=== PATIENT | female | born 1970 | race Caucasian/White ===

== ENCOUNTER 2016-12-02 04:42 | Emergency (ER) | payer MEDICAID, SELFPAY ==
[2016-12-02 05:01] VITALS: BP 121/91
[2016-12-02] MEDS ORDERED: HYDROmorphone 1 MG/ML Syringe IM ONE (05:08)
[2016-12-02] MEDS ORDERED: Ketorolac 60 MG/2 ML SDV IM ONE (05:12)
[2016-12-02] MEDS ORDERED: Take Home: Acetaminophen/oxyCODONE 325-5 MG, 5 Tab Pack PO ONE (05:13)
--- NOTE | 2016-12-02 08:16 | ER ---
Date of Service: 12/02/2016 SUBJECTIVE: Rima presents to the emergency room stating that she is out of her pain medication. The patient states that she is on oxycodone for pain control. She states that she has been out of this medication for approximately 2 days and is requesting refill or pain medication. The patient states that she is feeling somewhat anxious. She is experiencing pain to her lower extremities. She does have a history of chronic pain syndrome secondary to osteoarthritis. PAST MEDICAL HISTORY: 1. Polycystic ovarian syndrome. 2. History of pernicious anemia. 3. Chronic pain syndrome. 4. Sleep disorder. 5. Dyslipidemia. 6. Type 2 diabetes mellitus. ALLERGIES: NKDA. MEDICATIONS: Please see Nurse's notes. REVIEW OF SYSTEMS: General: No fever or chills. HEENT: No sore throat, rhinorrhea, congestion. Respiratory: No shortness of breath. Cardiac: Denies any substernal chest pain. No jaw, arm, neck, or back pain. Gastrointestinal: Nausea, vomiting, or diarrhea. No melena, hematochezia, or hematemesis. : Denies any dysuria. Musculoskeletal: Positive for pain to her lower extremities secondary to peripheral neuropathy. PHYSICAL EXAMINATION: General: This is an is a 45-year-old female patient. She is in no acute distress. Vital Signs: Blood pressure is 121/91, O2 saturations 92%. Respiratory rate is 18, pulse rate is 93, temperature is 37.1. Skin: Warm, pink, and dry. Lungs: Clear to auscultation. Heart: Regular rate and rhythm. Abdomen: Obese and nontender. There is no hepatosplenomegaly or masses noted. Extremities: Without edema. Neurologic: She is alert and answers all questions appropriately. Her speech is fluent. Her gait is within normal limits. ASSESSMENT: Chronic pain syndrome. PLAN: Discussed plan of care with the patient. I did state that I would not be able to give her prescription for chronic pain medication. I did give her a 5 pack of Percocet 5/325 with instructions to take 1 every 4 to 6 hours as needed for pain. She needs to follow up with her primary care provider to get her medication refilled, and that we cannot prescribe chronic pain medication through the ER. All questions were answered. She was also given an injection of Toradol 60 mg IM. MWK: 12/02/2016 05:38:17 MODL: 12/02/2016 06:58:20 /[id number]
== END 2016-12-02 06:01 | disposition home or self-care (01) ==
LOC: SUPCPDRO 04:42 → VM.ED 04:42
DX: G89.4 Chronic pain syndrome (principal); E78.5 Hyperlipidemia, unspecified; E11.9 Type 2 diabetes mellitus without complications
CPT/HCPCS: 96372; 99282; A9270; J1885

== ENCOUNTER 2016-12-20 10:53 | Inpatient (IN) | payer MEDICAID ==
[2016-12-20] MEDS ORDERED: Nystatin Crm 30 GM Tube TOP PRN (14:43)
[2016-12-20] MEDS ORDERED: Acetaminophen 500 MG Tab PO PRN (14:43)
[2016-12-20] MEDS: oxyCODONE 5 MG Tab PO PRN (16:27)
[2016-12-20] MEDS: Nicotine 21 MG/24 Hr Patch TRDERM SCH (17:33)
[2016-12-20] MEDS: MAGNESIUM 500 MG PO SCH (21:04)
[2016-12-20] MEDS: Simvastatin 40 MG Tab***OWN MED PO SCH (21:05)
[2016-12-20] MEDS: OXCARBAZEPINE 600 MG PO SCH (21:05)
[2016-12-20] MEDS: METFORMIN 500 MG PO SCH (21:06)
[2016-12-20] MEDS: TRAZODONE 100 MG PO SCH (21:07)
[2016-12-20] MEDS: PREGABALIN 200 MG PO SCH (21:07)
[2016-12-20] MEDS: PHENTERMINE 15 MG PO SCH (21:09)
[2016-12-20] MEDS: oxyCODONE 5 MG Tab PO SCH (21:13)
--- NOTE | 2016-12-20 21:55 | HP ---
REASON FOR ADMISSION: Left ankle pain and fracture to the distal medial malleoli with incomplete union and impaired mobility due to that and need for help with ADLs. 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 She had some alcohol use at that time. She was hospitalized over a month, and spent 4 months in the jail and has had trouble with painful neuropathy since, including use of Lyrica, Tegretol, and narcotics. She takes usually 20 mg twice daily of oxycodone but had been using additional doses over the last month due to the ankle pain. She at one point was followed by the Pain Clinic for neuropathy but has not been back lately. The patient had weighed over 400 pounds. She has actually gained now 15 pounds in the last 3 months, up to 408. Her highest weight has been 412, that was a year ago. She tends to drink a lot of pop at home. She smokes. She has had a lot of shortness of breath but has been seen in the past by Pulmonary and they felt she had severe restrictive lung disease probably due to her obesity. She has had a pelvic mass, however, she has had it so long and her CA-125 were negative. I doubt it is of any neoplastic nature, but she was never felt to be good enough surgical candidate for that type of surgery. She has otherwise had no chest pain. No new cough. Her legs are swollen. She does take Lasix 40 mg twice daily. They are red but they are not warm. She has not had any fever or chills. 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 She takes rare Ativan. Chronic pain due to painful neuropathy, hypertriglyceridemia, hyperlipidemia, hypomagnesemia, macrocytic anemia, tobacco abuse disorder, smoking 1 to 1-1/2 packs per day. Low HDL, vitamin D deficiency, essential hypertension, insomnia, morbid obesity with BMI of 58.54, bilateral ovarian cysts, pelvic mass for the last 2+ years, prediabetes, perirectal abscess status post surgeries, rectal bleeding with previous colonoscopy that was okay, restrictive lung disease, moderate hypoxia, overnight B12 deficiency. PAST SURGICAL HISTORY: The patient has had the rectal surgery x3 back in 2015, ORIF of the right ankle. 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 She is . She has a boyfriend whom she lives with. FAMILY HISTORY: Her mother is alive, but her father of heart disease. Sister has multiple sclerosis. REVIEW OF SYSTEMS: General: Again, massive weight gain. HEENT: No sore throat. No trouble swallowing. Cardiac: No chest pain. Respiratory: She has been short of breath that is long standing. She has impaired mobility. Abdominal: No abdominal pain, nausea, vomiting, or diarrhea. Musculoskeletal: She has ankle pain. Neurologic: She has painful neuropathy. Psych: She does have a history of depression and situational anxiety. Otherwise, all systems reviewed and found to be negative unless otherwise stated. PHYSICAL EXAMINATION: Vital Signs: Her weight on admission is 185.2 kg, temp 98, pulse 80, blood pressure 108/45, respiratory rate 16, and O2 of 96% on room air. General: She is in no acute distress. Heart: Regular rate and rhythm. S1 and S2 without murmur. Lungs: Sounds are clear to auscultation bilaterally without crackles or wheezes. Abdomen: Positive bowel sounds. Soft and nontender. Extremities: Warm and dry. She has some redness to her toes, some fine scabs noted, but no open sores or ulcers. She has good sensation. She has 2+ dorsal pedis pulses. Mental Status: She is alert and orientated x3. LABORATORY DATA: Lab work done through the clinic on the 8th did show negative D-dimer, proBNP was normal at 22, magnesium was 2.0. CBC was completely normal with hemoglobin of 13.4, platelets of 288, glucose 108, sodium 134, potassium 4.9, creatinine 0.67. ASSESSMENT: 1. Left ankle fracture, distal medial malleoli. Roll Panner felt it could be as old as 8 weeks out. However, the patient fell about 1 month ago. They do not feel she would need any surgery at this point. They recommended a walking boot, which the patient had told me she had at home but could not find. We will have to arrange for her to use one in the hospital and have her up with a walker. 2. Dyspnea on exertion, shortness of breath related to restrictive lung disease. D-dimer is negative. It is unlikely she has a PE. Could consider another echo test again prior to any gastric bypass surgery, but echo looked okay last year with EF of 60%. Pulmonary artery pressure could not be calculated. She has had some nocturnal hypoxia and we will order 2 L of oxygen for her at night. 3. Chronic pain. We have ordered her oxycodone twice a day and an extra pill if needed, which had been limited to 10 per month. 4. Essential hypertension. We will continue her home Lasix. 5. Edema, dependent, probably due to some obesity. We will try to get her into the bariatric bed, so she can get her feet up more. We will apply some Phu wraps as well. 6. Anxiety. I am going to hold her lorazepam. She has only used it prior to trips on the bus. 7. Morbid obesity. We are working on referral to gastric bypass surgery. 8. Smoking. We will have her on a nicotine patch and hopefully that will help. 9. Depression. We will continue her home medications. PLAN: At this point patient is admitted to swing bed cares to encourage weight loss, quitting smoking, and help with her ADLs due to limited mobility with the ankle fracture. She requires assistance with bathing and ambulating. We will get her up and working with PT again. LEO: 12/20/2016 18:26:39 MODL: 12/20/2016 21:48:01 /[id number]
[2016-12-21] MEDS: CYCLOBENZAPRINE 10 MG PO PRN ×2 (06:03→20:07)
[2016-12-21] MEDS: Ibuprofen 200 MG Tab PO PRN (06:05)
[2016-12-21] MEDS: Omeprazole 20 MG Cap.CR***OWN MED PO SCH (06:05)
[2016-12-21] MEDS: FUROSEMIDE 40 MG PO SCH ×2 (08:07→11:21)
[2016-12-21] MEDS: OXCARBAZEPINE 600 MG PO SCH ×2 (08:08→20:09)
[2016-12-21] MEDS: METFORMIN 500 MG PO SCH ×2 (08:09→20:09)
[2016-12-21] MEDS: BUPROPION 300 MG PO SCH (08:11)
[2016-12-21] MEDS: CHOLECALCIFEROL 1000 UNIT PO SCH (08:11)
[2016-12-21] MEDS: ESCITALOPRAM 20 MG PO SCH (08:11)
[2016-12-21] MEDS: FOLIC ACID 1 MG PO SCH (08:11)
[2016-12-21] MEDS: oxyCODONE 5 MG Tab PO SCH ×2 (08:12→20:05)
[2016-12-21] MEDS: Cyanocobalamin (Vitamin B12) 1,000 MCG Tab PO SCH (08:12)
[2016-12-21] MEDS: POTASSIUM CHLORIDE 10 MEQ PO SCH (08:12)
[2016-12-21] MEDS: Nicotine 21 MG/24 Hr Patch TRDERM SCH (08:14)
[2016-12-21] MEDS: Aspirin 325 MG Tab.EC PO SCH (08:14)
[2016-12-21] MEDS: PHENTERMINE 15 MG PO SCH ×2 (08:15→20:10)
[2016-12-21] MEDS: PREGABALIN 200 MG PO SCH ×3 (08:17→20:12)
[2016-12-21] MEDS: THIAMINE 100 MG PO SCH (11:21)
[2016-12-21] MEDS: MAGNESIUM 500 MG PO SCH ×2 (11:21→20:08)
[2016-12-21] MEDS: TRAZODONE 100 MG PO SCH (20:15)
[2016-12-21] MEDS: Simvastatin 40 MG Tab***OWN MED PO SCH (20:16)
[2016-12-21] MEDS: oxyCODONE 5 MG Tab PO PRN (22:49)
[2016-12-21] MEDS: TRAZODONE 100 MG PO PRN (22:54)
[2016-12-22] MEDS: Omeprazole 20 MG Cap.CR***OWN MED PO SCH (06:32)
[2016-12-22] MEDS: FUROSEMIDE 40 MG PO SCH ×2 (08:00→11:22)
[2016-12-22] MEDS: METFORMIN 500 MG PO SCH ×2 (08:00→20:32)
[2016-12-22] MEDS: POTASSIUM CHLORIDE 10 MEQ PO SCH (08:01)
[2016-12-22] MEDS: OXCARBAZEPINE 600 MG PO SCH ×2 (08:01→20:33)
[2016-12-22] MEDS: ESCITALOPRAM 20 MG PO SCH (08:01)
[2016-12-22] MEDS: Cyanocobalamin (Vitamin B12) 1,000 MCG Tab PO SCH (08:01)
[2016-12-22] MEDS: CHOLECALCIFEROL 1000 UNIT PO SCH (08:02)
[2016-12-22] MEDS: FOLIC ACID 1 MG PO SCH (08:02)
[2016-12-22] MEDS: BUPROPION 300 MG PO SCH (08:02)
[2016-12-22] MEDS: oxyCODONE 5 MG Tab PO SCH ×2 (08:02→20:29)
[2016-12-22] MEDS: Nicotine 21 MG/24 Hr Patch TRDERM SCH (08:04)
[2016-12-22] MEDS: PHENTERMINE 15 MG PO SCH ×2 (08:07→20:34)
[2016-12-22] MEDS: PREGABALIN 200 MG PO SCH ×3 (08:07→20:33)
[2016-12-22] MEDS: Aspirin 325 MG Tab.EC PO SCH (08:08)
[2016-12-22] MEDS: MAGNESIUM 500 MG PO SCH ×2 (11:22→20:32)
[2016-12-22] MEDS: THIAMINE 100 MG PO SCH (11:22)
[2016-12-22] MEDS: CYCLOBENZAPRINE 10 MG PO PRN ×2 (11:26→20:30)
[2016-12-22] MEDS: Simvastatin 40 MG Tab***OWN MED PO SCH (20:31)
[2016-12-22] MEDS: TRAZODONE 100 MG PO SCH (20:32)
[2016-12-22] MEDS: oxyCODONE 5 MG Tab PO PRN (23:27)
[2016-12-23] MEDS: Ibuprofen 200 MG Tab PO PRN (03:22)
[2016-12-23] MEDS: Omeprazole 20 MG Cap.CR***OWN MED PO SCH (06:16)
[2016-12-23] MEDS: METFORMIN 500 MG PO SCH ×2 (10:00→20:50)
[2016-12-23] MEDS: FUROSEMIDE 40 MG PO SCH ×2 (10:01→13:46)
[2016-12-23] MEDS: Cyanocobalamin (Vitamin B12) 1,000 MCG Tab PO SCH (10:01)
[2016-12-23] MEDS: OXCARBAZEPINE 600 MG PO SCH ×2 (10:02→20:51)
[2016-12-23] MEDS: ESCITALOPRAM 20 MG PO SCH (10:03)
[2016-12-23] MEDS: FOLIC ACID 1 MG PO SCH (10:04)
[2016-12-23] MEDS: POTASSIUM CHLORIDE 10 MEQ PO SCH (10:04)
[2016-12-23] MEDS: CHOLECALCIFEROL 1000 UNIT PO SCH (10:05)
[2016-12-23] MEDS: Nicotine 21 MG/24 Hr Patch TRDERM SCH (10:05)
[2016-12-23] MEDS: BUPROPION 300 MG PO SCH (10:05)
[2016-12-23] MEDS: Aspirin 325 MG Tab.EC PO SCH (10:06)
[2016-12-23] MEDS: oxyCODONE 5 MG Tab PO SCH (10:07)
[2016-12-23] MEDS: PHENTERMINE 15 MG PO SCH ×2 (10:09→20:48)
[2016-12-23] MEDS: PREGABALIN 200 MG PO SCH ×3 (10:09→20:51)
[2016-12-23] MEDS ORDERED: NYSTATIN TOP PRN (12:55)
[2016-12-23] MEDS: MAGNESIUM 500 MG PO SCH ×2 (13:47→20:52)
[2016-12-23] MEDS: THIAMINE 100 MG PO SCH (13:47)
[2016-12-23] MEDS: TRAZODONE 100 MG PO SCH (20:49)
[2016-12-23] MEDS: Simvastatin 40 MG Tab***OWN MED PO SCH (20:49)
[2016-12-24] MEDS: CYCLOBENZAPRINE PO PRN ×2 (00:14→13:00)
[2016-12-24] MEDS: TRAZODONE 100 MG PO PRN (00:16)
[2016-12-24 06:11] VITALS: BP 136/87
[2016-12-24] MEDS: Omeprazole 20 MG Cap.CR***OWN MED PO SCH (06:51)
[2016-12-24] MEDS: Aspirin 325 MG Tab.EC PO SCH (08:48)
[2016-12-24] MEDS: ESCITALOPRAM 20 MG PO SCH (08:48)
[2016-12-24] MEDS: FOLIC ACID 1 MG PO SCH (08:49)
[2016-12-24] MEDS: Nicotine 21 MG/24 Hr Patch TRDERM SCH (08:50)
[2016-12-24] MEDS: METFORMIN 500 MG PO SCH (08:50)
[2016-12-24] MEDS: POTASSIUM CHLORIDE 10 MEQ PO SCH (08:51)
[2016-12-24] MEDS: FUROSEMIDE 40 MG PO SCH ×2 (08:52→11:59)
[2016-12-24] MEDS: BUPROPION 300 MG PO SCH (08:53)
[2016-12-24] MEDS: OXCARBAZEPINE 600 MG PO SCH (08:54)
[2016-12-24] MEDS: PHENTERMINE 15 MG PO SCH (08:56)
[2016-12-24] MEDS: PREGABALIN 200 MG PO SCH ×2 (08:59→12:03)
[2016-12-24] MEDS: Cyanocobalamin (Vitamin B12) 1,000 MCG Tab PO SCH (08:59)
[2016-12-24] MEDS: CHOLECALCIFEROL 1000 UNIT PO SCH (09:00)
[2016-12-24] MEDS ORDERED: OXYCODONE PO PRN (10:49)
[2016-12-24] MEDS: THIAMINE 100 MG PO SCH (12:00)
[2016-12-24] MEDS: MAGNESIUM 500 MG PO SCH (12:00)
[2016-12-24] MEDS ORDERED: OXYCODONE PO SCH (21:00)
--- NOTE | 2016-12-25 01:49 | DISCH ---
PRIMARY DISCHARGE DIAGNOSIS: 1. Left ankle medial malleoli fracture with malunion. This patient is supposed to be wearing a walking boot, but at times was not having it on. We did get her a new one while she was in the hospital. 2. Severe obesity. 3. Smoking. 4. Dyspnea on exertion. 5. Chronic pain related to neuropathy from Guillain-[place]. 6. Previous history of Guillain-[place]. 7. Dependent edema. 8. Essential hypertension. 9. Anxiety. 10.Depression. REASON FOR ADMISSION: On the date of admission, this 46-year-old female was admitted for cares with activities of daily living due to her impaired mobility. She also was desiring to quit smoking in hopes that she would be ready for a gastric bypass surgery. She had thought that things could be set up within 1 month, however, gastric bypass could not be arranged for at least 3 months and she would be meeting with the surgeon in 1 month. Otherwise, she did have a nicotine patch. She felt this was helpful. She requested one on discharge. She did get up and moved with PT. Her mobility was quite good. It was felt that she could return home and resume her ADLs with the assistance of Home Health coming in twice weekly for bathing. The patient at this point was discharged home under [facility]. Nicotine patch was ordered but Medicaid recommended to go through the [place] [facility] and the nurse will call her about this. Otherwise, she does have her oxycodone pain pills available as previously prescribed that were mailed out to her house and is due for recheck with me in 1 month from now for further refills on that. Discharge plans, instructions, followup appointments with Podiatry, although they did not feel surgery would be necessary. Bariatric surgery and Dr. Mishra have all been arranged. The patient is agreeable to discharge to resume Home Health. MKA: 12/24/2016 17:26:25 MODL: 12/25/2016 01:41:02 /[id number]
[2016-12-25] MEDS ORDERED: CHOLECALCIFEROL 2000 UNIT PO SCH (08:00)
== END 2016-12-24 13:57 | disposition home health service (06) | DRG 951 ==
LOC: VM.MS 13:45
PROVIDERS: ADMIT Internal Medicine; ATTEND Internal Medicine
DX: Z74.09 Other reduced mobility (principal); S82.52XA Displaced fracture of medial malleolus of left tibia, initial encounter for closed fracture; W19.XXXA Unspecified fall, initial encounter; E66.01 Morbid (severe) obesity due to excess calories; F17.200 Nicotine dependence, unspecified, uncomplicated; R06.09 Other forms of dyspnea; G89.29 Other chronic pain; G62.9 Polyneuropathy, unspecified; G65.0 Sequelae of Guillain-Barre syndrome; F10.21 Alcohol dependence, in remission; R60.9 Edema, unspecified; I10 Essential (primary) hypertension; F32.9 Major depressive disorder, single episode, unspecified; F41.9 Anxiety disorder, unspecified; E78.5 Hyperlipidemia, unspecified; E78.1 Pure hyperglyceridemia; D64.9 Anemia, unspecified; E55.9 Vitamin D deficiency, unspecified; E53.8 Deficiency of other specified B group vitamins; G47.00 Insomnia, unspecified; R73.03 Prediabetes; Z79.899 Other long term (current) drug therapy
CPT/HCPCS: 94760; 97161-GP; A9270-GY

== ENCOUNTER 2017-05-21 21:12 | Emergency (ER) | payer MEDICAID ==
[2017-05-21 21:24] VITALS: BP 115/67
--- NOTE | 2017-05-21 21:27 | EDM.PDOC ---
ED HPI GENERAL MEDICAL PROBLEM - General Chief Complaint: Lower Extremity Injury/Pain Stated Complaint: right knee pain Time Seen by Provider: 05/21/17 21:12 Source of Information: Reports: Patient, EMS Notes Reviewed, RN, RN Notes Reviewed History Limitations: Reports: No Limitations - History of Present Illness INITIAL COMMENTS - FREE TEXT/NARRATIVE: Patient is brought to the emergency room at [facility] via EMS complaining of severe right knee pain. The patient states last she was getting up from a seated position when she started to fall. As she was falling she tripped on a blanket and twisted her right knee. The patient has not been seen by her primary for this. The patient denies any head injury. No LOC. Patient denies any numbness tingling or paresthesia to the right lower extremity. The patient states that she has difficulty bearing weight on the right leg due to severe knee pain. The patient states that she has tried icing and using Coban wrapped around the right knee without any relief. The patient states she has also been taking oxycodone without any relief. The patient did receive 100 g of fentanyl from the EMS crew. The patient states the fentanyl did not help her pain at all. Onset Date: 05/15/17 Duration: Getting Worse Location: Reports: Lower Extremity, Right Quality: Reports: Stabbing, Throbbing Severity: Severe Improves with: Reports: None Worsens with: Reports: Movement Context: Reports: Trauma (fall; twisted right knee) Associated Symptoms: Reports: No Other Symptoms Treatments RAISIN WASHER: Reports: See EMS Report Right Knee Pain Score (Numeric/FACES): 9 - Related Data Allergies Allergy/AdvReac Type Severity Reaction Status Date / Time No Known Allergies Allergy Verified 05/21/17 21:20 Home Meds: Home Meds Acetaminophen [Tylenol Extra Strength] 1 - 2 tab PO Q4H PRN 10/20/14 [History] Cholecalciferol (Vitamin D3) [Vitamin D3] 2,000 unit PO DAILY 10/20/14 [History] Cyclobenzaprine [Flexeril] 10 mg PO BID PRN 10/20/14 [History] Escitalopram [Lexapro] 30 mg PO DAILY 10/20/14 [History] Folic Acid 1 mg PO TID 10/20/14 [History] Furosemide [Lasix] 40 mg PO BID@0800,1200 10/20/14 [History] Multivitamin [Multi-Vitamin Daily] 1 each PO DAILY@119910/20/14 [History] OXcarbazepine [Trileptal] 900 mg PO BID@0800,209910/20/14 [History] Omeprazole [Prilosec] 20 mg PO DAILY 10/20/14 [History] Pregabalin [Lyrica] 200 mg PO TID@0800,1200,209910/20/14 [History] Sennosides/Docusate Sodium [Senna-S] 1 each PO QID PRN 10/20/14 [History] Simvastatin [Zocor] 40 mg PO BEDTIME@209910/20/14 [History] Thiamine [Vitamin B-1] 100 mg PO DAILY@119910/20/14 [History] buPROPion [Wellbutrin XL] 300 mg PO DAILY 10/20/14 [History] traZODone 100 mg PO BEDTIME@209910/20/14 [History] LORazepam 0.5 mg PO BID PRN 12/27/14 [History] metFORMIN [Glucophage] 500 mg PO BID@0800,209912/27/14 [History] Potassium Chloride 10 meq PO DAILY 03/16/15 [History] traZODone 50 mg PO BEDTIME PRN 03/16/15 [History] Ibuprofen 800 mg PO TID PRN 10/26/15 [History] Magnesium Oxide [Magnesium] 500 mg PO BID@1200,209910/26/15 [History] oxyCODONE 20 mg PO BID@0800,209910/26/15 [History] Aspirin [Ecotrin] 325 mg PO DAILY 12/20/16 [History] Cyanocobalamin (Vitamin B-12) [B-12] 1,000 mcg PO DAILY 12/20/16 [History] Phentermine HCl 15 mg PO BID 12/20/16 [History] Past Medical History Cardiovascular History: Reports: High Cholesterol Other Cardiovascular History: lower leg edema Respiratory History: Reports: Other (See Below) Other Respiratory History: SOB at times, O2 at noc Gastrointestinal History: Reports: GERD LAST SCOURER History: Reports: Other (See Below) Other OB/BYN History: hx of ovarian cysts and need hysterectomy when able to tolerate reverserse trendeleberg Musculoskeletal History: Reports: Other (See Below) Other Musculoskeletal History: hx of rt ankle fx with pinning 6 years ago and current lt tibia fx Neurological History: Reports: Neuropathy, Peripheral, Seizure, Other (See Below ) Other Neuro History: [place] Psychiatric History: Reports: Anxiety, Depression Endocrine/Metabolic History: Reports: Diabetes, Type II, Obesity/BMI 30+ Other Dermatologic History: perineal abcess, over the last 1-2 years, keeps returning, had a number of surgeries for the same - Past Surgical History Cardiovascular Surgical History: Reports: None Respiratory Surgical History: Reports: None GI Surgical History: Reports: None Musculoskeletal Surgical History: Reports: Other (See Below) Other Musculoskeletal Surgeries/Procedures:: rt ankle pinning Social & Family History - Family History Family Medical History: Noncontributory - Tobacco Use Smoking Status *Q: Current Every Day Smoker Years of Tobacco use: 35 Packs/Tins Daily: 0.5 Second Hand Smoke Exposure: Yes - Caffeine Use Caffeine Use: Reports: Soda - Alcohol Use Days Per Week of Alcohol Use: 0 - Recreational Drug Use Recreational Drug Use: No Drug Use in Last 12 Months: No Review of Systems - Review of Systems Review Of Systems: See Below Constitutional: Denies: Chills, Fever, Weakness Respiratory: Reports: Shortness of Breath, Cough Cardiovascular: Reports: Chest Pain, Palpitations Musculoskeletal: Reports: Joint Pain (right knee pain), Muscle Pain, Muscle Stiffness Skin: Reports: No Symptoms Neurological: Reports: No Symptoms. Denies: Numbness, Paresthesia, Tingling ED EXAM, GENERAL - Physical Exam Exam: See Below Exam Limited By: No Limitations General Appearance: Alert, No Apparent Distress Respiratory/Chest: No Respiratory Distress, Lungs Clear, Decreased Breath Sounds Cardiovascular: Regular Rate, Rhythm Peripheral Pulses: 2+: Radial (L), Radial (R) Extremities: Pedal Edema, Limited Range of Motion, Other (right knee pain on deep palpation; no evidence of infection; no obvious knee swelling; limited ROM due to pain). No: Joint Swelling Neurological: Alert, Oriented Skin Exam: Warm, Dry, Intact, Normal Color, No Rash Course - Vital Signs Last Recorded V/S: Last Vital Signs Temp 37.3 C 05/21/17 21:21 Pulse 87 05/21/17 21:21 Resp 18 05/21/17 21:21 BP 115/67 05/21/17 21:21 Pulse Ox 94 L 05/21/17 21:21 - Orders/Labs/Meds Orders: Active Orders 24 hr Category Date Time Status Knee 1V or 2V Rt [CR] Stat Exams 05/21/17 21:30 Taken - Radiology Interpretation Free Text/Narrative:: Right Knee, plain film: Moderate degenerative changes and suspicion for knee joint effusion; Question of a fractured osteophyte at the patellar quadriceps tendon attachment. Clinical correlation recommended; approximately 3cm lucency over the proximal tibia seen on lateral view only, this could be related to artifact however, a true bone lesion can not be excluded. see scanned report in EMR Departure - Departure Time of Disposition: 23:12 Disposition: Home, Self-Care 01 Condition: Good Clinical Impression: Right knee injury Qualifiers: Encounter type: initial encounter Qualified Code(s): S89.91XA - Unspecified injury of right lower leg, initial encounter Right knee sprain Qualifiers: Encounter type: initial encounter Involved ligament of knee: unspecified ligament Qualified Code(s): S83.91XA - Sprain of unspecified site of right knee , initial encounter - Discharge Information Instructions: Knee Pain, Knee Sprain Referrals: Rosemarie Guevara DO [Primary Care Provider] - Forms: ED Department Discharge Additional Instructions: 1. Stay well hydrated and rest 2. Continue with same pain medications at home 3. Rest, elevate, and use ice several times a day 4. Use your walker for mobility, do not put much weight on the right leg when walking 5. See your Primary as symptoms warrant ED Communication - ED Communication Date/Time Date: 05/21/17 Time Called: 23:12 - Discussed Case With (1) Discussed Case With (1): Outpatient Provider (Dr. Beckman, Orthopedics) - Conversation Summary Summary Comment: Case discussed with Dr. Beckman, Ortho. No fracture or dislocation. Bone on bone arthiritis with right knee sprain. Recommend follow up with PCP as symptoms warrant; use walker as able; may need PT in near future - Problem List Review Problem List Initiated/Reviewed/Updated: Yes - My Orders Last 24 Hours: My Active Orders 05/21/17 21:30 Knee 1V or 2V Rt [CR] Stat - Assessment/Plan Last 24 Hours: My Active Orders 05/21/17 21:30 Knee 1V or 2V Rt [CR] Stat
== END 2017-05-21 23:52 | disposition home or self-care (01) ==
LOC: VM.ED 21:12
DX: S83.91XA Sprain of unspecified site of right knee, initial encounter (principal); K21.9 Gastro-esophageal reflux disease without esophagitis; F32.9 Major depressive disorder, single episode, unspecified; F41.9 Anxiety disorder, unspecified; E11.9 Type 2 diabetes mellitus without complications; E66.9 Obesity, unspecified; F17.210 Nicotine dependence, cigarettes, uncomplicated; Z79.82 Long term (current) use of aspirin; Z79.899 Other long term (current) drug therapy; X50.1XXA Overexertion from prolonged static or awkward postures, initial encounter
CPT/HCPCS: 73560-RT; 99284

== ENCOUNTER 2018-10-27 14:42 | Inpatient (IN) | payer MEDICAID ==
[2018-10-27] MEDS ORDERED: TRAZODONE 100 MG PO PRN (16:21)
[2018-10-27] MEDS ORDERED: Acetaminophen 500 MG Tab PO PRN (16:21)
--- NOTE | 2018-10-27 18:30 | HP ---
HISTORY OF PRESENT ILLNESS: This is a 47-year-old being admitted to self-pay swing bed for further efforts at weight loss and smoking cessation in the hopes of getting a gastric bypass surgery 3 months from now. The patient lives in a [facility], has had quite a bit of difficulty with transportation. She is in need of multiple tests including a sleep study, Pap smears, psychiatric evaluation, which is scheduled for later this week, and Nutrition visits. She otherwise had an ultrasound planned for abnormal vaginal bleeding and has had a history of ovarian cyst, but she has not had that done yet. She is currently having no pain. No trouble breathing. She does cough. She still smokes half pack to 1 pack a day. She has not been drinking any alcohol for several years. She does have a history of alcohol abuse and is not in any formal treatments. She does tend to drink about [address] a day. She has a couple of dogs at home, which is her biggest concern about being in the hospital for 3 months, but her significant other will care for them. Otherwise, she has some scabs and things over her feet areas. She has had them cut off by Podiatry in the past. ALLERGIES: None. MEDICATIONS: Trileptal 600 mg take 2 pills twice a day, Flexeril 10 mg 3 times a day as needed for muscle spasm, Wellbutrin 300 mg daily, MiraLAX 1 capful daily as needed for constipation, MS Contin 30 mg twice daily which she takes for chronic neuropathic pain from Guillain-[place], senna docusate 1 tab 3 times a day, Lyrica 200 mg 3 times a day, Prilosec daily, hydroxyzine 1 tablet 25 mg 4 times a day as needed for anxiety, Lexapro 30 mg daily, folic acid 1 mg daily, B12 1000 mcg daily, potassium 10 mEq daily, trazodone 100 mg at bedtime and 50 mg if needed for sleep, Lasix 40 mg daily, metformin 500 mg daily, Tylenol as needed for pain, Colace 100 mg 4 times a day as needed, Motrin 800 mg 3 times a day as needed for pain, aspirin 325 daily, magnesium 1000 mg 3 times a day, thiamine 100 mg daily, and vitamin D 2000 units daily. 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 She was down to 280 pounds at that point. She has since gained up now to 417 pounds at a BMI of 65. This is her highest point. 2. Morbid obesity. BMI 65. 3. Alcohol dependence, treatment back in 2006. 4. Anxiety and depression. Has been with [facility] in the past with a suicide attempt with pills, but none in the last several years. 5. B12 deficiency. 6. Tremors, not completely worked up for rule out for seizures. 7. History of ovarian cyst. Recommended to have surgery, but not healthy enough to have it at that time, that has been several years ago. No progression or concerns on those. 8. Chronic pain secondary to neuropathy with chronic continuous opioid use. 9. GERD. 10.Hyperlipidemia. 11.Essential hypertension, mostly using Lasix which helps with fluid retention, took beta-blockers in the past. 12.Hypertriglyceridemia. 13.Hypomagnesemia. 14.Hypoxia. She is not always good about using her oxygen at night. 15.Chronic idiopathic polyneuropathy. 16.Insomnia. 17.Macrocytic anemia. 18.Prediabetes. 19.Panic disorder, has infrequently taken Ativan like before traveling. 20.Previous rectal bleeding and perirectal abscess. 21.Restrictive lung disease, probably due to some obesity. 22.Severe depression. 23.Smoking. 24.Vitamin D deficiency. PAST SURGICAL HISTORY: The patient has had incision and debridement of perirectal abscess in 2014, I and D in 2016. Again, ORIF to the right ankle in 2010, more I and D's were done also in the rectal area in 2014. FAMILY HISTORY: Her father at age 73. Mother still living. SOCIAL HISTORY: She lives with her significant other. She is on disability. 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 She moved to [place] in 2008. She is not drinking at the time. She is . She has no children. Of course, she is a smoker. REVIEW OF SYSTEMS: General: Positive for weight gain approximately 20 pounds over the last year or so, but nothing recently. No fever, no chills. HEENT: No sore throat. No congestion. Cardiac: No chest pain. No palpitations. Respiratory: No shortness of breath, but does have some coughing. Musculoskeletal: No new aches or pains other than some knee pain that just started today. She thinks she might have twisted it wrong, but she is able to walk okay. Otherwise, all systems reviewed as stated above and negative. PHYSICAL EXAMINATION: Vital Signs: On admission to the hospital today, her weight is 417 pounds or 189.3 kg, temp 97.7, pulse 91, blood pressure 136/67, respiratory rate 20, O2 of 95% on room air. General: She is in no acute distress. Heart: Regular rate and rhythm. S1, S2 without murmur. Lungs: Lung sounds are clear to auscultation bilaterally without crackles or wheezes. Abdomen: Positive bowel sounds. It is soft, distended, but nontender. It is morbidly obese. Extremities: Warm and dry. She does have no pitting edema. She has significant dryness and scaling with a large corn on her plantar aspect of the right foot. She has cracked and fissured areas on both feet. Mental Status: She is alert and orientated x3. ASSESSMENT: 1. Morbid obesity, BMI of 65. 2. Nicotine dependence with smoking. 3. Remote history of alcohol abuse. 4. 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 5. Prediabetes. 6. Dyslipidemia. 7. Nocturnal hypoxia, on oxygen at night. 8. Anxiety and depression. 9. Insomnia. 10.History of pelvic mass. Need for screening pelvic ultrasound arranged in the clinic and a Pap smear is planned over there. PLAN: At this point, the patient is admitted for swing bed cares with focusing on smoking cessation. Her diet, she has multiple Nutrition visits planned and weight loss of hopefully 50 pounds over the next 3 months in preparation for a gastric bypass surgery. She will be placed on a diabetic diet. I recommend no pop for her, especially not the sugary pop. We will get her seen by Psychiatry. She has a visit later this week. She has lung testing and visits with Pulmonary planned. We will also get her sleep study. Director Of Strategic Sales will be involved. Multiple scheduling things are needed. We will try some AmLactin cream for her feet. We will get her seen by Podiatry and we will arrange some neuro followup for her. She plans on calling them. Overall, a very complex patient with lots of Director Of Strategic Sales help needed. A Nutrition consult was placed and further recommendations include increasing protein in her diet with specific recommendations given by gastric bypass surgery for 3191-0660 calories per day, 50-60 g of protein, and avoid sugary starchy foods. Aerobic exercise ideally 30 minutes 4-5 times a week consistently. We will work with trying to get her on a walk just twice a day as she is quite unsteady at times. If she is not used to being up, she feels like she could get dizzy. She also is thinking about code status. She actually is listed as a code 2, which is new for her. We did discuss with her given her young age and even with her comorbidities, so she would like to think about it. So for now, we will put her on a full code status for DVT prophylaxis. I am going to discontinue her full-dose aspirin. LEO: 10/27/2018 17:26:42 MODL: 10/27/2018 18:20:24 /[id number]
[2018-10-27] MEDS: Nicotine 21 MG/24 Hr Patch TRDERM SCH (18:49)
[2018-10-27] MEDS: MORPHINE 30 MG PO SCH (20:18)
[2018-10-27] MEDS: LYRICA PO SCH (20:18)
[2018-10-27] MEDS: OXCARBAZEPINE 600 MG PO SCH (20:19)
[2018-10-27] MEDS: TRAZODONE 100 MG PO SCH (20:20)
[2018-10-27] MEDS: FOLIC ACID 1 MG PO SCH (20:21)
[2018-10-27] MEDS: CYCLOBENZAPRINE 10 MG PO PRN (20:22)
[2018-10-27] MEDS: Magnesium Oxide 400 MG Tab PO SCH (20:36)
[2018-10-28] MEDS: POTASSIUM CHLORIDE 10 MEQ PO SCH (09:11)
[2018-10-28] MEDS: BUPROPION HCL 300 MG PO SCH (09:11)
[2018-10-28] MEDS: FOLIC ACID 1 MG PO SCH ×3 (09:12→21:00)
[2018-10-28] MEDS: OXCARBAZEPINE 600 MG PO SCH ×2 (09:12→21:18)
[2018-10-28] MEDS: FUROSEMIDE 40 MG PO SCH ×2 (09:13→12:51)
[2018-10-28] MEDS: METFORMIN 500 MG PO SCH (09:13)
[2018-10-28] MEDS: Nicotine 21 MG/24 Hr Patch TRDERM SCH (09:14)
[2018-10-28] MEDS: MORPHINE 30 MG PO SCH ×2 (09:15→21:00)
[2018-10-28] MEDS: LYRICA PO SCH ×3 (09:16→21:19)
[2018-10-28] MEDS: Omeprazole 20 MG Cap.CR PO SCH (09:22)
[2018-10-28] MEDS: Magnesium Oxide 400 MG Tab PO SCH ×3 (09:23→21:00)
[2018-10-28] MEDS: Cholecalciferol (Vitamin D3) 1,000 Unit Tab PO SCH (09:23)
[2018-10-28] MEDS: Aspirin 325 MG Tab.EC PO SCH (09:23)
[2018-10-28] MEDS: Cyanocobalamin (Vitamin B12) 1,000 MCG Tab PO SCH (09:24)
[2018-10-28] MEDS: CYCLOBENZAPRINE 10 MG PO PRN ×2 (12:50→21:20)
[2018-10-28] MEDS: Thiamine 100 MG Tab PO SCH (12:51)
[2018-10-28] MEDS: TRAZODONE 100 MG PO SCH (21:19)
[2018-10-28] MEDS: Docusate Sodium 100 MG Cap PO PRN (21:31)
[2018-10-29] MEDS: FOLIC ACID 1 MG PO SCH ×3 (07:52→20:44)
[2018-10-29] MEDS: Magnesium Oxide 400 MG Tab PO SCH ×3 (07:52→20:41)
[2018-10-29] MEDS: Cholecalciferol (Vitamin D3) 1,000 Unit Tab PO SCH (07:53)
[2018-10-29] MEDS: Omeprazole 20 MG Cap.CR PO SCH (07:53)
[2018-10-29] MEDS: Docusate Sodium 100 MG Cap PO PRN (07:53)
[2018-10-29] MEDS: Cyanocobalamin (Vitamin B12) 1,000 MCG Tab PO SCH (07:53)
[2018-10-29] MEDS: Aspirin 325 MG Tab.EC PO SCH (07:53)
[2018-10-29] MEDS: Nicotine 21 MG/24 Hr Patch TRDERM SCH (07:54)
[2018-10-29] MEDS: OXCARBAZEPINE 600 MG PO SCH ×2 (07:55→20:45)
[2018-10-29] MEDS: FUROSEMIDE 40 MG PO SCH ×2 (07:55→13:11)
[2018-10-29] MEDS: POTASSIUM CHLORIDE 10 MEQ PO SCH (07:56)
[2018-10-29] MEDS: METFORMIN 500 MG PO SCH (07:57)
[2018-10-29] MEDS: BUPROPION HCL 300 MG PO SCH (07:58)
[2018-10-29] MEDS: MORPHINE 30 MG PO SCH ×2 (07:58→20:42)
[2018-10-29] MEDS: LYRICA PO SCH ×3 (08:00→20:44)
[2018-10-29] MEDS: AMMONIUM LACTATE 12% TOP SCH ×2 (09:02→20:49)
[2018-10-29] MEDS ORDERED: Cholecalciferol (Vitamin D3) 1,000 Unit Tab PO SCH (12:00)
[2018-10-29] MEDS: Multivitamins with Iron/Calcium/Folic Acid/Minerals Tab PO SCH (13:12)
[2018-10-29] MEDS: Thiamine 100 MG Tab PO SCH (13:12)
--- NOTE | 2018-10-29 14:52 | US ---
[id number] US/US Pelvic Transvag Transabd Exam: US Pelvic Transvag Transabd Indication:MENORRHAGIA WITH IRREGULAR CYCLE. Comparison: Pelvic CT from June 2017. Discussion: Transvaginal examination was performed for better evaluation of the adnexa. Numerous closely approximated cysts versus a multi locular cystic mass. Difficult to differentiate between normal uterine/advanced structures, urinary bladder, or underlying mass, as the structures are closely approximated to one another. Of note, cystic ovarian masses were seen on a CT from 2016. Endometrium measures 10 mm in thickness and is hyperechoic with scattered cystic change. Otherwise, retained blood products can demonstrate a similar appearance. Impression: Possible multilocular cystic pelvic mass, described above. If symptoms persist, consider gynecologic consultation versus contrast enhanced CT examination of the abdomen/pelvis to help differentiate anatomy. Jean-Paul Chatman MD 10/29/18 0103 Thank you for allowing us to participate in the care of your patient.
[2018-10-29] MEDS: TRAZODONE 100 MG PO SCH (20:45)
[2018-10-29] MEDS: CYCLOBENZAPRINE 10 MG PO PRN (20:46)
[2018-10-30] MEDS: Cholecalciferol (Vitamin D3) 1,000 Unit Tab PO SCH (08:16)
[2018-10-30] MEDS: Nicotine 21 MG/24 Hr Patch TRDERM SCH (08:16)
[2018-10-30] MEDS: Magnesium Oxide 400 MG Tab PO SCH ×3 (08:17→20:08)
[2018-10-30] MEDS: Aspirin 325 MG Tab.EC PO SCH (08:17)
[2018-10-30] MEDS: Multivitamins with Iron/Calcium/Folic Acid/Minerals Tab PO SCH (08:19)
[2018-10-30] MEDS: Omeprazole 20 MG Cap.CR PO SCH (08:19)
[2018-10-30] MEDS: Cyanocobalamin (Vitamin B12) 1,000 MCG Tab PO SCH (08:19)
[2018-10-30] MEDS: MORPHINE 30 MG PO SCH ×2 (08:20→20:00)
[2018-10-30] MEDS: LYRICA PO SCH ×3 (08:20→20:02)
[2018-10-30] MEDS: BUPROPION HCL 300 MG PO SCH (08:24)
[2018-10-30] MEDS: OXCARBAZEPINE 600 MG PO SCH ×2 (08:25→19:58)
[2018-10-30] MEDS: HYDROXYZINE HCL 25 MG PO PRN (08:26)
[2018-10-30] MEDS: METFORMIN 500 MG PO SCH (08:29)
[2018-10-30] MEDS: FUROSEMIDE 40 MG PO SCH ×2 (08:30→12:22)
[2018-10-30] MEDS: POTASSIUM CHLORIDE 10 MEQ PO SCH (08:30)
[2018-10-30] MEDS: FOLIC ACID 1 MG PO SCH ×3 (08:31→19:57)
--- NOTE | 2018-10-30 09:20 | US ---
[id number] US/US Pelvic Transvag Transabd Exam: US Pelvic Transvag Transabd Indication:MENORRHAGIA WITH IRREGULAR CYCLE. Comparison: Pelvic CT from June 2017. Discussion: Transvaginal examination was performed for better evaluation of the adnexa. Numerous closely approximated cysts versus a multi locular cystic mass. Difficult to differentiate between normal uterine/advanced structures, urinary bladder, or underlying mass, as the structures are closely approximated to one another. Of note, cystic ovarian masses were seen on a CT from 2016. Endometrium measures 10 mm in thickness and is hyperechoic with scattered cystic change. Otherwise, retained blood products can demonstrate a similar appearance. Impression: Possible multilocular cystic pelvic mass, described above. If symptoms persist, consider gynecologic consultation versus contrast enhanced CT examination of the abdomen/pelvis to help differentiate anatomy. Jean-Paul Chatman MD 10/30/18 0919 Thank you for allowing us to participate in the care of your patient.
[2018-10-30] MEDS: AMMONIUM LACTATE 12% TOP SCH ×2 (12:24→19:56)
[2018-10-30] MEDS: Thiamine 100 MG Tab PO SCH (12:26)
[2018-10-30] MEDS: CYCLOBENZAPRINE 10 MG PO PRN ×2 (12:29→20:04)
--- NOTE | 2018-10-30 18:07 | PN ---
Progress Note for GEMMA NASH Date: 10/30/2018 Room #: VM.201 HISTORY OF PRESENT ILLNESS: This is a 47-year-old on swing bed. The patient has had heavy periods back in July for a week and a half. Now she is just having spotting. She has had some hot flashes. She did have a pelvic ultrasound that was ordered due to the bleeding and also history of pelvic mass. This was done yesterday and did show her to have a possible multilocular mass cystic up to 9 cm biggest dimensions, but they were unable to fully get it in the garcia. It was also on her ultrasound in 2014, it was 10 cm at that time. Otherwise, she did have 10 mm of endometrial thickness which was hypoechoic with scattered cystic changes, could be related to retained blood products. I discussed this with Gemma today given her plan to undergo gastric bypass surgery and need for further cancer screening. Her only concern right now is that she would like to be able to have some ketch-up. Nutrition has seen her. She is on strict dietary restrictions, low sugar. She also is now using a larger restroom which she finds more helpful. She is having to walk there, but that is quite tiring on her and she was able to get better sleep and rest. She saw Psychiatry yesterday. They adjusted her medications. Plan to start Zoloft and also she is going to start with counseling. OBJECTIVE: Vital Signs: Today, her temperature 97.7, pulse 74, blood pressure 128/47, respiratory rate 18, O2 of 97% on room air. ASSESSMENT: 1. Pelvic mass. It was the right ovary back in 2014 that was enlarged. The patient only had some discomfort on the left side. She will be referred to Gynecology. Also, possibly she is having some dysfunctional uterine bleeding or just perimenopause. Again, this can further be evaluated by Gynecology. 2. Morbid obesity. BMI 65. 3. Nicotine dependence. She is on nicotine patch. Eventually, we will get her off this too, but I think in this 1st couple days to weeks, she will need that. 4. Remote history of alcohol abuse. 5. Anxiety and depression. She is now seeing Psychiatry. 6. Chronic pain due to polyneuropathy with history of Guillain-[place]. 7. Prediabetes. 8. Dyslipidemia. 9. Nocturnal hypoxia. PLAN: At this point, we will continue with ongoing referrals for nutrition, dietitian, gastric bypass, Gynecology, Pulmonary Medicine to get the patient cleared for surgery. She is up, she is moving in the halls more with staff. Overall hopefully, this is a beneficial experience for her as she is quite motivated to improve her overall health. MKA: 10/30/2018 17:07:30 MODL: 10/30/2018 17:21:55 /[id number]
[2018-10-30] MEDS: TRAZODONE 100 MG PO SCH (20:04)
[2018-10-31] MEDS: BUPROPION HCL 300 MG PO SCH (07:29)
[2018-10-31] MEDS: FUROSEMIDE 40 MG PO SCH ×2 (07:30→12:05)
[2018-10-31] MEDS: METFORMIN 500 MG PO SCH (07:30)
[2018-10-31] MEDS: POTASSIUM CHLORIDE 10 MEQ PO SCH (07:30)
[2018-10-31] MEDS: OXCARBAZEPINE 600 MG PO SCH ×2 (07:31→21:56)
[2018-10-31] MEDS: FOLIC ACID 1 MG PO SCH ×3 (07:31→21:56)
[2018-10-31] MEDS: MORPHINE 30 MG PO SCH ×2 (07:33→21:58)
[2018-10-31] MEDS: LYRICA PO SCH ×3 (07:36→21:59)
[2018-10-31] MEDS: Omeprazole 20 MG Cap.CR PO SCH (07:43)
[2018-10-31] MEDS: Cholecalciferol (Vitamin D3) 1,000 Unit Tab PO SCH (07:44)
[2018-10-31] MEDS: Multivitamins with Iron/Calcium/Folic Acid/Minerals Tab PO SCH (07:45)
[2018-10-31] MEDS: Aspirin 325 MG Tab.EC PO SCH (07:45)
[2018-10-31] MEDS: Magnesium Oxide 400 MG Tab PO SCH ×3 (07:45→21:57)
[2018-10-31] MEDS: Cyanocobalamin (Vitamin B12) 1,000 MCG Tab PO SCH (07:45)
[2018-10-31] MEDS: Nicotine 21 MG/24 Hr Patch TRDERM SCH (07:46)
[2018-10-31] MEDS: HYDROXYZINE HCL 25 MG PO PRN ×2 (07:50→12:08)
[2018-10-31] MEDS: AMMONIUM LACTATE 12% TOP SCH ×2 (10:01→21:55)
[2018-10-31] MEDS: Thiamine 100 MG Tab PO SCH (12:05)
[2018-10-31] MEDS: TRAZODONE 100 MG PO SCH (21:56)
[2018-10-31] MEDS: CYCLOBENZAPRINE 10 MG PO PRN (22:00)
[2018-11-01] MEDS: OXCARBAZEPINE 600 MG PO SCH ×2 (07:48→21:44)
[2018-11-01] MEDS: FOLIC ACID 1 MG PO SCH ×3 (07:48→21:47)
[2018-11-01] MEDS: METFORMIN 500 MG PO SCH (07:49)
[2018-11-01] MEDS: POTASSIUM CHLORIDE 10 MEQ PO SCH (07:49)
[2018-11-01] MEDS: CYCLOBENZAPRINE 10 MG PO PRN ×3 (07:49→21:43)
[2018-11-01] MEDS: BUPROPION HCL 300 MG PO SCH (07:49)
[2018-11-01] MEDS: Magnesium Oxide 400 MG Tab PO SCH ×3 (07:50→21:42)
[2018-11-01] MEDS: Cholecalciferol (Vitamin D3) 1,000 Unit Tab PO SCH (07:50)
[2018-11-01] MEDS: Multivitamins with Iron/Calcium/Folic Acid/Minerals Tab PO SCH (07:50)
[2018-11-01] MEDS: FUROSEMIDE 40 MG PO SCH ×2 (07:50→11:34)
[2018-11-01] MEDS: Omeprazole 20 MG Cap.CR PO SCH (07:50)
[2018-11-01] MEDS: Aspirin 325 MG Tab.EC PO SCH (07:51)
[2018-11-01] MEDS: Cyanocobalamin (Vitamin B12) 1,000 MCG Tab PO SCH (07:51)
[2018-11-01] MEDS: Nicotine 21 MG/24 Hr Patch TRDERM SCH (07:51)
[2018-11-01] MEDS: LYRICA PO SCH ×3 (07:52→21:48)
[2018-11-01] MEDS: MORPHINE 30 MG PO SCH ×2 (07:52→21:47)
[2018-11-01] MEDS: AMMONIUM LACTATE 12% TOP SCH ×2 (09:58→21:42)
[2018-11-01] MEDS: Thiamine 100 MG Tab PO SCH (11:37)
[2018-11-01] MEDS: HYDROXYZINE HCL 25 MG PO PRN (11:38)
[2018-11-01] MEDS: Ibuprofen 200 MG Tab PO PRN (18:48)
[2018-11-01] MEDS: TRAZODONE 100 MG PO SCH (21:45)
[2018-11-02] MEDS: BUPROPION HCL 300 MG PO SCH (07:58)
[2018-11-02] MEDS: POTASSIUM CHLORIDE 10 MEQ PO SCH (07:58)
[2018-11-02] MEDS: FOLIC ACID 1 MG PO SCH ×3 (07:58→20:08)
[2018-11-02] MEDS: Nicotine 21 MG/24 Hr Patch TRDERM SCH (07:58)
[2018-11-02] MEDS: OXCARBAZEPINE 600 MG PO SCH ×2 (07:58→20:57)
[2018-11-02] MEDS: FUROSEMIDE 40 MG PO SCH ×2 (07:59→12:01)
[2018-11-02] MEDS: Omeprazole 20 MG Cap.CR PO SCH (07:59)
[2018-11-02] MEDS: Cholecalciferol (Vitamin D3) 1,000 Unit Tab PO SCH (07:59)
[2018-11-02] MEDS: METFORMIN 500 MG PO SCH (07:59)
[2018-11-02] MEDS: Aspirin 325 MG Tab.EC PO SCH (07:59)
[2018-11-02] MEDS: Multivitamins with Iron/Calcium/Folic Acid/Minerals Tab PO SCH (08:00)
[2018-11-02] MEDS: Cyanocobalamin (Vitamin B12) 1,000 MCG Tab PO SCH (08:00)
[2018-11-02] MEDS: Magnesium Oxide 400 MG Tab PO SCH ×3 (08:00→20:07)
[2018-11-02] MEDS: MORPHINE 30 MG PO SCH ×2 (08:00→20:09)
[2018-11-02] MEDS: LYRICA PO SCH ×3 (08:01→20:10)
[2018-11-02] MEDS: AMMONIUM LACTATE 12% TOP SCH ×2 (10:07→20:13)
[2018-11-02] MEDS: Thiamine 100 MG Tab PO SCH (12:02)
[2018-11-02] MEDS: CYCLOBENZAPRINE 10 MG PO PRN ×2 (12:29→20:55)
[2018-11-02] MEDS: HYDROXYZINE HCL 25 MG PO PRN ×2 (14:32→20:55)
[2018-11-02] MEDS: TRAZODONE 100 MG PO SCH (20:08)
[2018-11-03] MEDS: Nicotine 21 MG/24 Hr Patch TRDERM SCH (08:22)
[2018-11-03] MEDS: Cholecalciferol (Vitamin D3) 1,000 Unit Tab PO SCH (08:22)
[2018-11-03] MEDS: Aspirin 325 MG Tab.EC PO SCH (08:22)
[2018-11-03] MEDS: Cyanocobalamin (Vitamin B12) 1,000 MCG Tab PO SCH (08:23)
[2018-11-03] MEDS: Magnesium Oxide 400 MG Tab PO SCH ×3 (08:23→20:03)
[2018-11-03] MEDS: Multivitamins with Iron/Calcium/Folic Acid/Minerals Tab PO SCH (08:23)
[2018-11-03] MEDS: Omeprazole 20 MG Cap.CR PO SCH (08:23)
[2018-11-03] MEDS: BUPROPION HCL 300 MG PO SCH (08:25)
[2018-11-03] MEDS: POTASSIUM CHLORIDE 10 MEQ PO SCH (08:25)
[2018-11-03] MEDS: OXCARBAZEPINE 600 MG PO SCH ×2 (08:27→20:58)
[2018-11-03] MEDS: METFORMIN 500 MG PO SCH (08:27)
[2018-11-03] MEDS: FOLIC ACID 1 MG PO SCH ×3 (08:27→20:04)
[2018-11-03] MEDS: HYDROXYZINE HCL 25 MG PO PRN ×2 (08:28→20:06)
[2018-11-03] MEDS: LYRICA PO SCH ×3 (08:29→20:58)
[2018-11-03] MEDS: MORPHINE 30 MG PO SCH ×2 (08:32→20:04)
[2018-11-03] MEDS: FUROSEMIDE 40 MG PO SCH ×2 (08:41→11:18)
[2018-11-03] MEDS: AMMONIUM LACTATE 12% TOP SCH ×2 (11:11→20:04)
[2018-11-03] MEDS: Thiamine 100 MG Tab PO SCH (11:19)
[2018-11-03] MEDS: TRAZODONE 100 MG PO SCH (20:07)
[2018-11-03] MEDS: CYCLOBENZAPRINE 10 MG PO PRN (20:12)
[2018-11-04] MEDS: Magnesium Oxide 400 MG Tab PO SCH ×3 (09:14→20:05)
[2018-11-04] MEDS: Aspirin 325 MG Tab.EC PO SCH (09:14)
[2018-11-04] MEDS: FUROSEMIDE 40 MG PO SCH ×2 (09:14→14:21)
[2018-11-04] MEDS: Nicotine 21 MG/24 Hr Patch TRDERM SCH (09:14)
[2018-11-04] MEDS: POTASSIUM CHLORIDE 10 MEQ PO SCH (09:14)
[2018-11-04] MEDS: FOLIC ACID 1 MG PO SCH ×3 (09:14→19:55)
[2018-11-04] MEDS: METFORMIN 500 MG PO SCH (09:14)
[2018-11-04] MEDS: Omeprazole 20 MG Cap.CR PO SCH (09:15)
[2018-11-04] MEDS: Multivitamins with Iron/Calcium/Folic Acid/Minerals Tab PO SCH (09:15)
[2018-11-04] MEDS: Cyanocobalamin (Vitamin B12) 1,000 MCG Tab PO SCH (09:15)
[2018-11-04] MEDS: MORPHINE 30 MG PO SCH ×2 (09:15→19:56)
[2018-11-04] MEDS: Cholecalciferol (Vitamin D3) 1,000 Unit Tab PO SCH (09:15)
[2018-11-04] MEDS: BUPROPION HCL 300 MG PO SCH (09:16)
[2018-11-04] MEDS: OXCARBAZEPINE 600 MG PO SCH ×2 (09:17→19:59)
[2018-11-04] MEDS: HYDROXYZINE HCL 25 MG PO PRN ×3 (09:19→20:01)
[2018-11-04] MEDS: CYCLOBENZAPRINE 10 MG PO PRN ×3 (09:20→19:58)
[2018-11-04] MEDS: LYRICA PO SCH ×4 (09:21→21:13)
[2018-11-04] MEDS: AMMONIUM LACTATE 12% TOP SCH ×2 (11:38→19:54)
[2018-11-04] MEDS: SERTRALINE 25 MG PO SCH (11:38)
[2018-11-04] MEDS: Thiamine 100 MG Tab PO SCH (14:21)
[2018-11-04] MEDS: TRAZODONE 100 MG PO SCH (20:00)
[2018-11-05] MEDS: BUPROPION HCL 300 MG PO SCH (08:18)
[2018-11-05] MEDS: POTASSIUM CHLORIDE 10 MEQ PO SCH (08:18)
[2018-11-05] MEDS: METFORMIN 500 MG PO SCH (08:18)
[2018-11-05] MEDS: SERTRALINE 25 MG PO SCH (08:18)
[2018-11-05] MEDS: FOLIC ACID 1 MG PO SCH ×3 (08:19→19:32)
[2018-11-05] MEDS: HYDROXYZINE HCL 25 MG PO PRN ×2 (08:19→19:36)
[2018-11-05] MEDS: CYCLOBENZAPRINE 10 MG PO PRN ×2 (08:19→19:31)
[2018-11-05] MEDS: OXCARBAZEPINE 600 MG PO SCH ×2 (08:20→20:34)
[2018-11-05] MEDS: FUROSEMIDE 40 MG PO SCH ×2 (08:20→11:24)
[2018-11-05] MEDS: Cholecalciferol (Vitamin D3) 1,000 Unit Tab PO SCH (08:21)
[2018-11-05] MEDS: Multivitamins with Iron/Calcium/Folic Acid/Minerals Tab PO SCH (08:21)
[2018-11-05] MEDS: Cyanocobalamin (Vitamin B12) 1,000 MCG Tab PO SCH (08:21)
[2018-11-05] MEDS: LYRICA PO SCH ×4 (08:22→20:35)
[2018-11-05] MEDS: MORPHINE 30 MG PO SCH ×2 (08:22→19:30)
[2018-11-05] MEDS: Aspirin 325 MG Tab.EC PO SCH (08:22)
[2018-11-05] MEDS: Nicotine 21 MG/24 Hr Patch TRDERM SCH (08:24)
[2018-11-05] MEDS: Magnesium Oxide 400 MG Tab PO SCH ×3 (08:33→19:31)
[2018-11-05] MEDS: Omeprazole 20 MG Cap.CR PO SCH (08:35)
[2018-11-05] MEDS: AMMONIUM LACTATE 12% TOP SCH ×2 (11:22→19:30)
[2018-11-05] MEDS: Thiamine 100 MG Tab PO SCH (11:22)
[2018-11-05] MEDS: TRAZODONE 100 MG PO SCH (20:35)
[2018-11-06] MEDS: Omeprazole 20 MG Cap.CR PO SCH (07:46)
[2018-11-06] MEDS: Cholecalciferol (Vitamin D3) 1,000 Unit Tab PO SCH (07:46)
[2018-11-06] MEDS: Multivitamins with Iron/Calcium/Folic Acid/Minerals Tab PO SCH (07:46)
[2018-11-06] MEDS: FUROSEMIDE 40 MG PO SCH ×2 (07:47→11:56)
[2018-11-06] MEDS: Cyanocobalamin (Vitamin B12) 1,000 MCG Tab PO SCH (07:47)
[2018-11-06] MEDS: Aspirin 325 MG Tab.EC PO SCH (07:47)
[2018-11-06] MEDS: POTASSIUM CHLORIDE 10 MEQ PO SCH (07:47)
[2018-11-06] MEDS: Magnesium Oxide 400 MG Tab PO SCH ×3 (07:47→20:49)
[2018-11-06] MEDS: BUPROPION HCL 300 MG PO SCH (07:47)
[2018-11-06] MEDS: METFORMIN 500 MG PO SCH (07:48)
[2018-11-06] MEDS: FOLIC ACID 1 MG PO SCH ×3 (07:48→20:47)
[2018-11-06] MEDS: SERTRALINE 25 MG PO SCH (07:48)
[2018-11-06] MEDS: Nicotine 21 MG/24 Hr Patch TRDERM SCH (07:48)
[2018-11-06] MEDS: MORPHINE 30 MG PO SCH ×2 (07:49→20:51)
[2018-11-06] MEDS: OXCARBAZEPINE 600 MG PO SCH ×2 (07:50→20:47)
[2018-11-06] MEDS: LYRICA PO SCH ×3 (07:50→20:50)
[2018-11-06] MEDS: HYDROXYZINE HCL 25 MG PO PRN ×2 (07:52→20:49)
[2018-11-06] MEDS: CYCLOBENZAPRINE 10 MG PO PRN ×2 (07:52→20:47)
[2018-11-06] MEDS: Thiamine 100 MG Tab PO SCH (11:55)
[2018-11-06] MEDS: AMMONIUM LACTATE 12% TOP SCH ×2 (11:56→20:51)
[2018-11-06] MEDS ORDERED: LORazepam 0.5 MG Tab PO ONE (13:34)
[2018-11-06] MEDS: TRAZODONE 100 MG PO SCH (20:46)
[2018-11-07] MEDS: HYDROXYZINE HCL 25 MG PO PRN ×3 (07:46→20:41)
[2018-11-07] MEDS: Aspirin 325 MG Tab.EC PO SCH (07:46)
[2018-11-07] MEDS: Magnesium Oxide 400 MG Tab PO SCH ×3 (07:46→20:46)
[2018-11-07] MEDS: Cyanocobalamin (Vitamin B12) 1,000 MCG Tab PO SCH (07:47)
[2018-11-07] MEDS: Cholecalciferol (Vitamin D3) 1,000 Unit Tab PO SCH (07:47)
[2018-11-07] MEDS: Omeprazole 20 MG Cap.CR PO SCH (07:47)
[2018-11-07] MEDS: Multivitamins with Iron/Calcium/Folic Acid/Minerals Tab PO SCH (07:47)
[2018-11-07] MEDS: Nicotine 21 MG/24 Hr Patch TRDERM SCH (07:47)
[2018-11-07] MEDS: OXCARBAZEPINE 600 MG PO SCH ×2 (07:48→20:40)
[2018-11-07] MEDS: CYCLOBENZAPRINE 10 MG PO PRN ×2 (07:48→20:39)
[2018-11-07] MEDS: FOLIC ACID 1 MG PO SCH ×3 (07:48→20:41)
[2018-11-07] MEDS: SERTRALINE 25 MG PO SCH (07:49)
[2018-11-07] MEDS: FUROSEMIDE 40 MG PO SCH ×2 (07:49→12:17)
[2018-11-07] MEDS: POTASSIUM CHLORIDE 10 MEQ PO SCH (07:49)
[2018-11-07] MEDS: BUPROPION HCL 300 MG PO SCH (07:49)
[2018-11-07] MEDS: MORPHINE 30 MG PO SCH ×2 (07:49→20:42)
[2018-11-07] MEDS: METFORMIN 500 MG PO SCH (07:49)
[2018-11-07] MEDS: LYRICA PO SCH ×3 (07:50→20:44)
[2018-11-07] MEDS: AMMONIUM LACTATE 12% TOP SCH ×2 (09:59→20:45)
[2018-11-07] MEDS: Thiamine 100 MG Tab PO SCH (12:16)
[2018-11-07] MEDS: Docusate Sodium 100 MG Cap PO PRN (12:40)
[2018-11-07] MEDS: TRAZODONE 100 MG PO SCH (20:40)
[2018-11-08] MEDS: CYCLOBENZAPRINE 10 MG PO PRN ×3 (07:37→20:23)
[2018-11-08] MEDS: Multivitamins with Iron/Calcium/Folic Acid/Minerals Tab PO SCH (07:37)
[2018-11-08] MEDS: Nicotine 21 MG/24 Hr Patch TRDERM SCH (07:37)
[2018-11-08] MEDS: HYDROXYZINE HCL 25 MG PO PRN ×3 (07:37→20:24)
[2018-11-08] MEDS: FOLIC ACID 1 MG PO SCH ×3 (07:38→20:23)
[2018-11-08] MEDS: Cholecalciferol (Vitamin D3) 1,000 Unit Tab PO SCH (07:38)
[2018-11-08] MEDS: Aspirin 325 MG Tab.EC PO SCH (07:38)
[2018-11-08] MEDS: Cyanocobalamin (Vitamin B12) 1,000 MCG Tab PO SCH (07:38)
[2018-11-08] MEDS: Omeprazole 20 MG Cap.CR PO SCH (07:38)
[2018-11-08] MEDS: OXCARBAZEPINE 600 MG PO SCH ×2 (07:38→20:30)
[2018-11-08] MEDS: METFORMIN 500 MG PO SCH (07:39)
[2018-11-08] MEDS: POTASSIUM CHLORIDE 10 MEQ PO SCH (07:39)
[2018-11-08] MEDS: MORPHINE 30 MG PO SCH ×2 (07:39→20:25)
[2018-11-08] MEDS: SERTRALINE 25 MG PO SCH (07:39)
[2018-11-08] MEDS: FUROSEMIDE 40 MG PO SCH ×2 (07:39→11:55)
[2018-11-08] MEDS: BUPROPION HCL 300 MG PO SCH (07:39)
[2018-11-08] MEDS: LYRICA PO SCH ×3 (07:40→20:30)
[2018-11-08] MEDS: Magnesium Oxide 400 MG Tab PO SCH ×3 (07:41→20:22)
[2018-11-08] MEDS: Thiamine 100 MG Tab PO SCH (11:54)
[2018-11-08] MEDS: AMMONIUM LACTATE 12% TOP SCH ×2 (11:54→20:26)
--- NOTE | 2018-11-08 11:58 | PN ---
Progress Note for GEMMA NASH Date: 11/06/2018 Room #: VM.201 SUBJECTIVE: This is a 47-year-old on swing bed for improvement in ADLs, weight loss, and quit smoking prior to gastric bypass surgery. The patient was asked to be off her nicotine patch for 3 months prior to surgery. We have been working with a dietitian. She is allowed to have some catch-up now with meals. She is using some artificial sweeteners, but not exceeding the maximum doses. PHYSICAL EXAMINATION: Vital Signs: Objectively, her temperature is 97.4. Her recent weight was 191.2 kg, pulse 66, blood pressure 118/39, respiratory rate 16, and O2 96% on room air. General: She is in no acute distress. She is sitting comfortably in her chair. She appears to be in good spirits. ASSESSMENT AND PLAN: 1. Pelvic mass. She has a followup with FARM HELPER arranged. This is a long- standing issue back at 2014. 2. Morbid obesity. BMI 65, working on weight loss with nutrition. 3. Nicotine dependence. She is on a nicotine patch. She plans to stop using that tomorrow. 4. Remote history of alcohol abuse. 5. Anxiety and depression following with Psychiatry. Arrangements are being made for counseling. 6. Chronic pain due to polyneuropathy from Guillain-[place]. She is on her home doses of morphine. 7. Prediabetes. 8. Nocturnal hypoxia. Outpatient sleep study has been arranged. 9. Hyperlipidemia. PLAN: At this point, the patient will continue on swing bed cares. Social Service is following. She has multiple medical appointments to attend. She also needs to come over to the clinic for a Pap test, which was arranged for November 16. MKA: 11/08/2018 10:52:42 MODL: 11/08/2018 11:50:21 /[id number]
[2018-11-08] MEDS: TRAZODONE 100 MG PO SCH (20:30)
[2018-11-09] MEDS: Aspirin 325 MG Tab.EC PO SCH (07:58)
[2018-11-09] MEDS: FOLIC ACID 1 MG PO SCH ×3 (07:58→19:54)
[2018-11-09] MEDS: METFORMIN 500 MG PO SCH (07:58)
[2018-11-09] MEDS: BUPROPION HCL 300 MG PO SCH (07:58)
[2018-11-09] MEDS: POTASSIUM CHLORIDE 10 MEQ PO SCH (07:59)
[2018-11-09] MEDS: FUROSEMIDE 40 MG PO SCH ×2 (07:59→13:03)
[2018-11-09] MEDS: Magnesium Oxide 400 MG Tab PO SCH ×3 (07:59→19:55)
[2018-11-09] MEDS: MORPHINE 30 MG PO SCH ×2 (08:00→19:56)
[2018-11-09] MEDS: Omeprazole 20 MG Cap.CR PO SCH (08:04)
[2018-11-09] MEDS: OXCARBAZEPINE 600 MG PO SCH ×2 (08:04→19:59)
[2018-11-09] MEDS: LYRICA PO SCH ×4 (08:05→20:48)
[2018-11-09] MEDS: AMMONIUM LACTATE 12% TOP SCH ×2 (08:05→19:53)
[2018-11-09] MEDS: SERTRALINE 25 MG PO SCH (08:05)
[2018-11-09] MEDS: Multivitamins with Iron/Calcium/Folic Acid/Minerals Tab PO SCH (08:06)
[2018-11-09] MEDS: Cholecalciferol (Vitamin D3) 1,000 Unit Tab PO SCH (08:06)
[2018-11-09] MEDS: Cyanocobalamin (Vitamin B12) 1,000 MCG Tab PO SCH (08:06)
[2018-11-09] MEDS: HYDROXYZINE HCL 25 MG PO PRN ×2 (08:09→19:57)
[2018-11-09] MEDS: Nicotine 21 MG/24 Hr Patch TRDERM SCH (08:20)
[2018-11-09] MEDS: Thiamine 100 MG Tab PO SCH (13:04)
[2018-11-09] MEDS: CYCLOBENZAPRINE 10 MG PO PRN (19:55)
[2018-11-09] MEDS: TRAZODONE 100 MG PO SCH (19:59)
[2018-11-10] MEDS: Nicotine 21 MG/24 Hr Patch TRDERM SCH (08:51)
[2018-11-10] MEDS: POTASSIUM CHLORIDE 10 MEQ PO SCH (08:51)
[2018-11-10] MEDS: SERTRALINE 25 MG PO SCH (08:51)
[2018-11-10] MEDS: Multivitamins with Iron/Calcium/Folic Acid/Minerals Tab PO SCH (08:51)
[2018-11-10] MEDS: Cyanocobalamin (Vitamin B12) 1,000 MCG Tab PO SCH (08:51)
[2018-11-10] MEDS: FOLIC ACID 1 MG PO SCH ×3 (08:51→20:56)
[2018-11-10] MEDS: OXCARBAZEPINE 600 MG PO SCH ×2 (08:51→20:56)
[2018-11-10] MEDS: FUROSEMIDE 40 MG PO SCH ×2 (08:51→12:25)
[2018-11-10] MEDS: Omeprazole 20 MG Cap.CR PO SCH (08:51)
[2018-11-10] MEDS: Magnesium Oxide 400 MG Tab PO SCH ×3 (08:51→20:56)
[2018-11-10] MEDS: Aspirin 325 MG Tab.EC PO SCH (08:52)
[2018-11-10] MEDS: MORPHINE 30 MG PO SCH ×2 (08:52→20:56)
[2018-11-10] MEDS: CYCLOBENZAPRINE 10 MG PO PRN ×2 (08:52→20:56)
[2018-11-10] MEDS: BUPROPION HCL 300 MG PO SCH (08:52)
[2018-11-10] MEDS: LYRICA PO SCH ×3 (08:52→20:57)
[2018-11-10] MEDS: METFORMIN 500 MG PO SCH ×3 (08:52→21:04)
[2018-11-10] MEDS: Cholecalciferol (Vitamin D3) 1,000 Unit Tab PO SCH (08:53)
[2018-11-10] MEDS: AMMONIUM LACTATE 12% TOP SCH ×3 (08:54→20:59)
[2018-11-10] MEDS: HYDROXYZINE HCL 25 MG PO PRN ×2 (08:57→20:57)
[2018-11-10] MEDS: Thiamine 100 MG Tab PO SCH (12:28)
[2018-11-10] MEDS: TRAZODONE 100 MG PO SCH (20:56)
[2018-11-10] MEDS: TOPIRAMATE 25 MG PO SCH (21:04)
[2018-11-11] MEDS: LYRICA PO SCH ×3 (08:53→20:02)
[2018-11-11] MEDS: Cholecalciferol (Vitamin D3) 1,000 Unit Tab PO SCH (08:54)
[2018-11-11] MEDS: Cyanocobalamin (Vitamin B12) 1,000 MCG Tab PO SCH (08:54)
[2018-11-11] MEDS: HYDROXYZINE HCL 25 MG PO PRN ×2 (08:54→20:03)
[2018-11-11] MEDS: Magnesium Oxide 400 MG Tab PO SCH ×3 (08:54→19:59)
[2018-11-11] MEDS: MORPHINE 30 MG PO SCH ×2 (08:55→19:58)
[2018-11-11] MEDS: Multivitamins with Iron/Calcium/Folic Acid/Minerals Tab PO SCH (08:55)
[2018-11-11] MEDS: Aspirin 325 MG Tab.EC PO SCH (08:55)
[2018-11-11] MEDS: Omeprazole 20 MG Cap.CR PO SCH (08:55)
[2018-11-11] MEDS: FOLIC ACID 1 MG PO SCH ×3 (08:56→20:01)
[2018-11-11] MEDS: Nicotine 21 MG/24 Hr Patch TRDERM SCH (08:56)
[2018-11-11] MEDS: OXCARBAZEPINE 600 MG PO SCH ×2 (08:56→20:00)
[2018-11-11] MEDS: FUROSEMIDE 40 MG PO SCH ×2 (08:57→11:52)
[2018-11-11] MEDS: BUPROPION HCL 300 MG PO SCH (08:57)
[2018-11-11] MEDS: POTASSIUM CHLORIDE 10 MEQ PO SCH (08:57)
[2018-11-11] MEDS: CYCLOBENZAPRINE 10 MG PO PRN ×3 (08:57→22:01)
[2018-11-11] MEDS: SERTRALINE 25 MG PO SCH (08:57)
[2018-11-11] MEDS: METFORMIN 500 MG PO SCH ×3 (09:00→18:09)
[2018-11-11] MEDS: Thiamine 100 MG Tab PO SCH (11:52)
[2018-11-11] MEDS: AMMONIUM LACTATE 12% TOP SCH ×2 (11:52→20:00)
[2018-11-11] MEDS: TRAZODONE 100 MG PO SCH (20:01)
[2018-11-11] MEDS: TOPIRAMATE 25 MG PO SCH (21:07)
[2018-11-12] MEDS: FUROSEMIDE 40 MG PO SCH ×2 (10:39→13:40)
[2018-11-12] MEDS: SERTRALINE 25 MG PO SCH (10:40)
[2018-11-12] MEDS: POTASSIUM CHLORIDE 10 MEQ PO SCH (10:40)
[2018-11-12] MEDS: BUPROPION HCL 300 MG PO SCH (10:40)
[2018-11-12] MEDS: FOLIC ACID 1 MG PO SCH ×3 (10:40→21:24)
[2018-11-12] MEDS: OXCARBAZEPINE 600 MG PO SCH ×2 (10:41→21:25)
[2018-11-12] MEDS: METFORMIN 500 MG PO SCH ×2 (10:41→18:03)
[2018-11-12] MEDS: Aspirin 325 MG Tab.EC PO SCH (10:42)
[2018-11-12] MEDS: CYCLOBENZAPRINE 10 MG PO PRN ×2 (10:42→13:40)
[2018-11-12] MEDS: Omeprazole 20 MG Cap.CR PO SCH (10:43)
[2018-11-12] MEDS: Magnesium Oxide 400 MG Tab PO SCH ×3 (10:43→21:23)
[2018-11-12] MEDS: Nicotine 21 MG/24 Hr Patch TRDERM SCH (10:43)
[2018-11-12] MEDS: Cholecalciferol (Vitamin D3) 1,000 Unit Tab PO SCH (10:44)
[2018-11-12] MEDS: Cyanocobalamin (Vitamin B12) 1,000 MCG Tab PO SCH (10:44)
[2018-11-12] MEDS: Multivitamins with Iron/Calcium/Folic Acid/Minerals Tab PO SCH (10:44)
[2018-11-12] MEDS: MORPHINE 30 MG PO SCH ×2 (10:45→21:26)
[2018-11-12] MEDS: LYRICA PO SCH ×3 (10:45→21:27)
[2018-11-12] MEDS: AMMONIUM LACTATE 12% TOP SCH ×2 (10:46→21:23)
[2018-11-12] MEDS: Thiamine 100 MG Tab PO SCH (13:39)
[2018-11-12] MEDS: TRAZODONE 100 MG PO SCH (21:27)
[2018-11-12] MEDS: TOPIRAMATE 25 MG PO SCH (21:29)
[2018-11-13] MEDS: OXCARBAZEPINE 600 MG PO SCH ×2 (07:42→21:22)
[2018-11-13] MEDS: FOLIC ACID 1 MG PO SCH ×3 (07:42→19:15)
[2018-11-13] MEDS: FUROSEMIDE 40 MG PO SCH ×2 (07:42→11:23)
[2018-11-13] MEDS: BUPROPION HCL 300 MG PO SCH (07:43)
[2018-11-13] MEDS: METFORMIN 500 MG PO SCH ×2 (07:43→17:20)
[2018-11-13] MEDS: POTASSIUM CHLORIDE 10 MEQ PO SCH (07:43)
[2018-11-13] MEDS: SERTRALINE 25 MG PO SCH (07:43)
[2018-11-13] MEDS: Magnesium Oxide 400 MG Tab PO SCH ×2 (07:44→11:22)
[2018-11-13] MEDS: Cholecalciferol (Vitamin D3) 1,000 Unit Tab PO SCH (07:44)
[2018-11-13] MEDS: Aspirin 325 MG Tab.EC PO SCH (07:45)
[2018-11-13] MEDS: Cyanocobalamin (Vitamin B12) 1,000 MCG Tab PO SCH (07:45)
[2018-11-13] MEDS: Multivitamins with Iron/Calcium/Folic Acid/Minerals Tab PO SCH (07:45)
[2018-11-13] MEDS: Nicotine 21 MG/24 Hr Patch TRDERM SCH (07:45)
[2018-11-13] MEDS: MORPHINE 30 MG PO SCH ×2 (07:46→19:16)
[2018-11-13] MEDS: LYRICA PO SCH ×3 (07:48→21:21)
[2018-11-13] MEDS: CYCLOBENZAPRINE 10 MG PO PRN ×2 (07:49→19:17)
[2018-11-13] MEDS: Omeprazole 20 MG Cap.CR PO SCH (07:51)
[2018-11-13] MEDS: AMMONIUM LACTATE 12% TOP SCH ×2 (09:13→19:14)
[2018-11-13] MEDS: Thiamine 100 MG Tab PO SCH (11:22)
--- NOTE | 2018-11-13 13:28 | PN ---
Progress Note for GEMMA NASH Date: 11/13/2018 Room #: VM.201 SUBJECTIVE: This is a 47-year-old on swing bed for help with ADLs and to quit smoking and to get multiple appointments and workup prior to gastric bypass surgery. She recently saw the weight last center in [place]. They adjusted some of her medications. They were planning on adding Topamax. There was some trouble getting it from the pharmacy, but it is now scheduled at bedtime. She has also recently been adjusted to sertraline by Psych. She has been having some loose stools with diet changes and increased doses of metformin. Otherwise, she is on magnesium high dose 3 times a day, which may be contributing to diarrhea. She came over to the clinic and had some lab work due to an ovarian mass. Her CA-125 was normal. She had this also normal a few years ago. She is due for a Pap. She is going to be seeing DISTRIBUTION OPERATIONS MANAGER for that. She had a low sodium and we will repeat that at the hospital. It was 129. Otherwise, she is getting quite frustrated. Sometimes, she is not able to clean herself with bowel movements and she is not getting consistent help from the staff here. OBJECTIVE: Vital Signs: On exam, her temperature is 97.6, pulse 73, blood pressure 130/46, respiratory rate 18, O2 is 94% on room air. General: She is in no acute distress. She is resting in her room. Her weight has not been checked yet this week. She is working with the dietitian. ASSESSMENT AND PLAN: 1. Loose stools. We will cut back to once daily on the magnesium and repeat a level on the 10th with her sodium. 2. Hyponatremia. We will repeat a sodium. 3. Pelvic mass. She is going to follow up with FLANGE MACHINE OPERATOR. They will do her Pap. 4. Morbid obesity. 5. Remote history of alcohol abuse. 6. Anxiety and depression. She is following with Psych. 7. Chronic pain due to Guillain-[place]. She is on her home morphine. 8. Prediabetes. 9. Nocturnal hypoxia. 10.Hyperlipidemia. 11. Smoking she is quitting but still using the patch PLAN: At this point, the patient will continue swing bed cares to work with therapies. She will need a test to confirm that she has been off smoking the month before her gastric bypass surgery. Communications Equipment Installer is also involved in helping with her arrangements. MKA: 11/13/2018 12:58:44 MODL: 11/13/2018 13:19:59 /[id number] DILAN
[2018-11-13] MEDS: HYDROXYZINE HCL 25 MG PO PRN (17:20)
[2018-11-13] MEDS: TRAZODONE 100 MG PO SCH (21:20)
[2018-11-14] MEDS: Nicotine 21 MG/24 Hr Patch TRDERM SCH (08:07)
[2018-11-14] MEDS: Cyanocobalamin (Vitamin B12) 1,000 MCG Tab PO SCH (08:09)
[2018-11-14] MEDS: Aspirin 325 MG Tab.EC PO SCH (08:09)
[2018-11-14] MEDS: Magnesium Oxide 400 MG Tab PO SCH (08:09)
[2018-11-14] MEDS: METFORMIN 500 MG PO SCH ×2 (08:09→17:50)
[2018-11-14] MEDS: Cholecalciferol (Vitamin D3) 1,000 Unit Tab PO SCH (08:09)
[2018-11-14] MEDS: Omeprazole 20 MG Cap.CR PO SCH (08:09)
[2018-11-14] MEDS: Multivitamins with Iron/Calcium/Folic Acid/Minerals Tab PO SCH (08:09)
[2018-11-14] MEDS: BUPROPION HCL 300 MG PO SCH (08:10)
[2018-11-14] MEDS: SERTRALINE 25 MG PO SCH (08:10)
[2018-11-14] MEDS: OXCARBAZEPINE 600 MG PO SCH ×2 (08:10→20:52)
[2018-11-14] MEDS: FUROSEMIDE 40 MG PO SCH ×2 (08:10→11:38)
[2018-11-14] MEDS: POTASSIUM CHLORIDE 10 MEQ PO SCH (08:11)
[2018-11-14] MEDS: CYCLOBENZAPRINE 10 MG PO PRN ×2 (08:11→20:53)
[2018-11-14] MEDS: FOLIC ACID 1 MG PO SCH ×3 (08:11→20:54)
[2018-11-14] MEDS: MORPHINE 30 MG PO SCH ×2 (08:12→20:50)
[2018-11-14] MEDS: HYDROXYZINE HCL 25 MG PO PRN (08:12)
[2018-11-14] MEDS: LYRICA PO SCH ×3 (08:13→20:53)
[2018-11-14] MEDS: AMMONIUM LACTATE 12% TOP SCH ×2 (10:38→20:49)
[2018-11-14] MEDS: Thiamine 100 MG Tab PO SCH (11:38)
[2018-11-14] MEDS: TRAZODONE 100 MG PO SCH (20:49)
[2018-11-15] MEDS: POTASSIUM CHLORIDE 10 MEQ PO SCH (07:18)
[2018-11-15] MEDS: SERTRALINE 25 MG PO SCH (07:18)
[2018-11-15] MEDS: BUPROPION HCL 300 MG PO SCH (07:18)
[2018-11-15] MEDS: FOLIC ACID 1 MG PO SCH ×3 (07:19→19:51)
[2018-11-15] MEDS: OXCARBAZEPINE 600 MG PO SCH ×2 (07:19→20:57)
[2018-11-15] MEDS: FUROSEMIDE 40 MG PO SCH ×2 (07:19→11:35)
[2018-11-15] MEDS: METFORMIN 500 MG PO SCH ×2 (07:19→17:02)
[2018-11-15] MEDS: CYCLOBENZAPRINE 10 MG PO PRN ×2 (07:20→20:58)
[2018-11-15] MEDS: Cyanocobalamin (Vitamin B12) 1,000 MCG Tab PO SCH (07:20)
[2018-11-15] MEDS: Cholecalciferol (Vitamin D3) 1,000 Unit Tab PO SCH (07:20)
[2018-11-15] MEDS: Omeprazole 20 MG Cap.CR PO SCH (07:20)
[2018-11-15] MEDS: Multivitamins with Iron/Calcium/Folic Acid/Minerals Tab PO SCH (07:20)
[2018-11-15] MEDS: Aspirin 325 MG Tab.EC PO SCH (07:21)
[2018-11-15] MEDS: LYRICA PO SCH ×3 (07:21→20:56)
[2018-11-15] MEDS: MORPHINE 30 MG PO SCH ×2 (07:21→19:54)
[2018-11-15] MEDS: Magnesium Oxide 400 MG Tab PO SCH (07:21)
[2018-11-15] MEDS: Nicotine 21 MG/24 Hr Patch TRDERM SCH (07:22)
[2018-11-15] MEDS: AMMONIUM LACTATE 12% TOP SCH ×2 (10:02→19:53)
[2018-11-15] MEDS: Thiamine 100 MG Tab PO SCH (11:35)
[2018-11-15] MEDS: TRAZODONE 100 MG PO SCH (20:57)
[2018-11-16] MEDS: OXCARBAZEPINE 600 MG PO SCH (08:29)
[2018-11-16] MEDS: FUROSEMIDE 40 MG PO SCH ×2 (08:30→11:26)
[2018-11-16] MEDS: METFORMIN 500 MG PO SCH ×2 (08:30→17:01)
[2018-11-16] MEDS: FOLIC ACID 1 MG PO SCH ×2 (08:30→11:26)
[2018-11-16] MEDS: BUPROPION HCL 300 MG PO SCH (08:31)
[2018-11-16] MEDS: POTASSIUM CHLORIDE 10 MEQ PO SCH (08:31)
[2018-11-16] MEDS: SERTRALINE 25 MG PO SCH (08:31)
[2018-11-16] MEDS: Magnesium Oxide 400 MG Tab PO SCH (08:32)
[2018-11-16] MEDS: Aspirin 325 MG Tab.EC PO SCH (08:32)
[2018-11-16] MEDS: Nicotine 21 MG/24 Hr Patch TRDERM SCH (08:32)
[2018-11-16] MEDS: Cyanocobalamin (Vitamin B12) 1,000 MCG Tab PO SCH (08:33)
[2018-11-16] MEDS: Cholecalciferol (Vitamin D3) 1,000 Unit Tab PO SCH (08:33)
[2018-11-16] MEDS: Multivitamins with Iron/Calcium/Folic Acid/Minerals Tab PO SCH (08:33)
[2018-11-16] MEDS: Omeprazole 20 MG Cap.CR PO SCH (08:33)
[2018-11-16] MEDS: LYRICA PO SCH ×3 (08:35→20:18)
[2018-11-16] MEDS: MORPHINE 30 MG PO SCH ×2 (08:35→20:18)
[2018-11-16] MEDS: AMMONIUM LACTATE 12% TOP SCH ×3 (08:36→20:18)
[2018-11-16] MEDS: HYDROXYZINE HCL 25 MG PO PRN ×2 (08:37→20:17)
[2018-11-16] MEDS: Thiamine 100 MG Tab PO SCH (11:26)
[2018-11-16] MEDS: Docusate Sodium 100 MG Cap PO PRN (16:47)
[2018-11-16] MEDS: CYCLOBENZAPRINE 10 MG PO PRN (20:17)
[2018-11-16] MEDS: TRAZODONE 100 MG PO SCH (20:17)
[2018-11-17] MEDS: OXCARBAZEPINE 600 MG PO SCH ×3 (01:03→20:30)
[2018-11-17] MEDS: FOLIC ACID 1 MG PO SCH ×4 (01:04→20:29)
[2018-11-17] MEDS: METFORMIN 500 MG PO SCH ×2 (08:04→18:03)
[2018-11-17] MEDS: Aspirin 325 MG Tab.EC PO SCH (08:04)
[2018-11-17] MEDS: Cholecalciferol (Vitamin D3) 1,000 Unit Tab PO SCH (08:04)
[2018-11-17] MEDS: FUROSEMIDE 40 MG PO SCH ×2 (08:04→13:00)
[2018-11-17] MEDS: SERTRALINE 25 MG PO SCH (08:05)
[2018-11-17] MEDS: BUPROPION HCL 300 MG PO SCH (08:05)
[2018-11-17] MEDS: POTASSIUM CHLORIDE 10 MEQ PO SCH (08:05)
[2018-11-17] MEDS: Nicotine 21 MG/24 Hr Patch TRDERM SCH (08:06)
[2018-11-17] MEDS: MORPHINE 30 MG PO SCH ×2 (08:07→20:29)
[2018-11-17] MEDS: LYRICA PO SCH ×3 (08:08→20:32)
[2018-11-17] MEDS: Cyanocobalamin (Vitamin B12) 1,000 MCG Tab PO SCH (08:13)
[2018-11-17] MEDS: Omeprazole 20 MG Cap.CR PO SCH (08:13)
[2018-11-17] MEDS: Multivitamins with Iron/Calcium/Folic Acid/Minerals Tab PO SCH (08:13)
[2018-11-17] MEDS: Magnesium Oxide 400 MG Tab PO SCH (08:13)
[2018-11-17] MEDS: AMMONIUM LACTATE 12% TOP SCH ×2 (10:50→20:29)
[2018-11-17] MEDS: Thiamine 100 MG Tab PO SCH (13:01)
[2018-11-17] MEDS: CYCLOBENZAPRINE 10 MG PO PRN ×2 (13:02→20:32)
[2018-11-17] MEDS: TRAZODONE 100 MG PO SCH (20:31)
[2018-11-17] MEDS: HYDROXYZINE HCL 25 MG PO PRN (20:32)
[2018-11-18 07:04] LABS: CHLORIDE,CL 92 mmol/L (98-107)
[2018-11-18 07:29] LABS: SODIUM,NA 128 mmol/L (136-145)
[2018-11-18] MEDS: POTASSIUM CHLORIDE 10 MEQ PO SCH (08:29)
[2018-11-18] MEDS: OXCARBAZEPINE 600 MG PO SCH ×2 (08:29→20:11)
[2018-11-18] MEDS: METFORMIN 500 MG PO SCH ×2 (08:30→18:02)
[2018-11-18] MEDS: BUPROPION HCL 300 MG PO SCH (08:30)
[2018-11-18] MEDS: Magnesium Oxide 400 MG Tab PO SCH (08:30)
[2018-11-18] MEDS: FUROSEMIDE 40 MG PO SCH ×2 (08:30→11:55)
[2018-11-18] MEDS: FOLIC ACID 1 MG PO SCH ×3 (08:30→20:11)
[2018-11-18] MEDS: Cholecalciferol (Vitamin D3) 1,000 Unit Tab PO SCH (08:31)
[2018-11-18] MEDS: Cyanocobalamin (Vitamin B12) 1,000 MCG Tab PO SCH (08:31)
[2018-11-18] MEDS: Multivitamins with Iron/Calcium/Folic Acid/Minerals Tab PO SCH (08:31)
[2018-11-18] MEDS: Aspirin 325 MG Tab.EC PO SCH (08:31)
[2018-11-18] MEDS: MORPHINE 30 MG PO SCH ×2 (08:32→20:10)
[2018-11-18] MEDS: Nicotine 21 MG/24 Hr Patch TRDERM SCH (08:34)
[2018-11-18] MEDS: HYDROXYZINE HCL 25 MG PO PRN ×2 (08:34→20:11)
[2018-11-18] MEDS: LYRICA PO SCH ×3 (08:35→20:10)
[2018-11-18] MEDS: Omeprazole 20 MG Cap.CR PO SCH (08:39)
[2018-11-18] MEDS: Thiamine 100 MG Tab PO SCH (11:59)
[2018-11-18] MEDS: Docusate Sodium 100 MG Cap PO PRN (11:59)
[2018-11-18] MEDS: AMMONIUM LACTATE 12% TOP SCH ×2 (18:01→20:12)
[2018-11-18] MEDS: CYCLOBENZAPRINE 10 MG PO PRN (20:11)
[2018-11-18] MEDS: TRAZODONE 100 MG PO SCH (20:11)
[2018-11-19] MEDS: CYCLOBENZAPRINE 10 MG PO PRN ×3 (07:40→20:15)
[2018-11-19] MEDS: BUPROPION HCL 300 MG PO SCH (07:41)
[2018-11-19] MEDS: FUROSEMIDE 40 MG PO SCH ×2 (07:41→12:30)
[2018-11-19] MEDS: POTASSIUM CHLORIDE 10 MEQ PO SCH (07:41)
[2018-11-19] MEDS: OXCARBAZEPINE 600 MG PO SCH ×2 (07:41→20:14)
[2018-11-19] MEDS: FOLIC ACID 1 MG PO SCH ×3 (07:41→19:26)
[2018-11-19] MEDS: METFORMIN 500 MG PO SCH ×2 (07:42→18:12)
[2018-11-19] MEDS: MORPHINE 30 MG PO SCH ×2 (07:42→19:27)
[2018-11-19] MEDS: LYRICA PO SCH ×3 (07:42→20:16)
[2018-11-19] MEDS: HYDROXYZINE HCL 25 MG PO PRN ×2 (07:43→12:33)
[2018-11-19] MEDS: Cholecalciferol (Vitamin D3) 1,000 Unit Tab PO SCH (07:51)
[2018-11-19] MEDS: Cyanocobalamin (Vitamin B12) 1,000 MCG Tab PO SCH (07:52)
[2018-11-19] MEDS: Aspirin 325 MG Tab.EC PO SCH (07:52)
[2018-11-19] MEDS: Multivitamins with Iron/Calcium/Folic Acid/Minerals Tab PO SCH (07:52)
[2018-11-19] MEDS: Omeprazole 20 MG Cap.CR PO SCH (07:52)
[2018-11-19] MEDS: Magnesium Oxide 400 MG Tab PO SCH (07:52)
[2018-11-19] MEDS: Nicotine 21 MG/24 Hr Patch TRDERM SCH (08:23)
[2018-11-19] MEDS: AMMONIUM LACTATE 12% TOP SCH ×2 (12:29→19:26)
[2018-11-19] MEDS: Thiamine 100 MG Tab PO SCH (12:30)
[2018-11-19] MEDS: TRAZODONE 100 MG PO SCH (20:15)
--- NOTE | 2018-11-19 21:46 | PCM.PN ---
- General Info Date of Service: 11/19/18 Admission Dx/Problem (Free Text): 47 yo seen on swing bed rounds said her stomach was upset so she wanted to get in bed after breakfast. Has now been constipated. Magnesium decreased last week due to diarrhea. She otherwise has not lost any significant weight as we couldn't get Topamax through her insurance but she may be able to self pay. Is now walking 1.5 labs 2 x a day but had refused to walk more per the nurse. Exercise is being encouraged and patient is agreeable to this. Functional Status: Reports: Pain Controlled, Ambulating. Denies: Tolerating Diet - Review of Systems General: Reports: No Symptoms Pulmonary: Reports: No Symptoms Cardiovascular: Reports: No Symptoms Gastrointestinal: Reports: Abdominal Pain Genitourinary: Reports: No Symptoms - Patient Data Vitals - Most Recent: Last Vital Signs Temp 97.6 F 11/19/18 05:54 Pulse 70 11/19/18 05:54 Resp 20 11/19/18 05:54 BP 127/42 L 11/19/18 05:54 Pulse Ox 94 L 11/19/18 05:54 Weight - Most Recent: 190.872 kg I&O - Last 24 Hours: Intake & Output 11/19/18 11/19/18 11/19/18 06:59 14:59 22:59 Intake Total 840 Balance 840 Med Orders - Current: Current Medications Acetaminophen (Tylenol Extra Strength) 500 mg PO QID PRN PRN Reason: Pain Aspirin (Ecotrin) 325 mg PO DAILY [facility] Last Admin: 11/19/18 07:52 Dose: 325 mg Cholecalciferol (Vitamin D3) 2,000 units PO DAILY [facility] Last Admin: 11/19/18 07:51 Dose: 2,000 units Cyanocobalamin (Vitamin B12) 1,000 mcg PO DAILY [facility] Last Admin: 11/19/18 07:52 Dose: 1,000 mcg Cyclobenzaprine HCl (Flexeril) 10 mg PO TID PRN PRN Reason: Muscle Spasm Last Admin: 11/19/18 20:15 Dose: 10 mg Docusate Sodium (Colace) 100 mg PO QID PRN PRN Reason: Constipation Last Admin: 11/18/18 11:59 Dose: 100 mg Folic Acid (Folic Acid) 1 mg PO TID [facility] Last Admin: 11/19/18 19:26 Dose: 1 mg Furosemide (Lasix) 40 mg PO BID@0800,1200 [facility] Last Admin: 11/19/18 12:30 Dose: 40 mg Hydroxyzine HCl (Atarax) 25 mg PO QID PRN PRN Reason: Anxiety Last Admin: 11/19/18 12:33 Dose: 25 mg Ibuprofen (Motrin) 800 mg PO TID PRN PRN Reason: Pain (moderate 4-6) Last Admin: 11/01/18 18:48 Dose: 800 mg Magnesium Oxide (Magnesium Oxide) 800 mg PO DAILY [facility] Last Admin: 11/19/18 07:52 Dose: 800 mg [facility]) [facility] Stop: 08/19/21 17:59 Last Admin: 11/19/18 18:12 Dose: 500 mg Morphine Sulfate (Ms Contin) 30 mg PO BID [facility] Last Admin: 11/19/18 19:27 Dose: 30 mg Multivitamins/Minerals (Thera M Plus) 1 tab PO DAILY [facility] Last Admin: 11/19/18 07:52 Dose: 1 tab Nicotine (Habitrol) 21 mg TRDERM DAILY [facility] Last Admin: 11/19/18 08:23 Dose: Not Given Own Med (Bupropion Hcl [Wellbutrin Xl] 300 Mg) 300 mg PO DAILY [facility] Last Admin: 11/19/18 07:41 Dose: 300 mg Own Med ( Oxcarbazepine [ Trileptal] 600 Mg) 0 mg PO BID@0800,2100 [facility] Last Admin: 11/19/18 20:14 Dose: 1,200 mg Own Med Lyrica ( (Pregabalin 200 Mg)) 200 mg PO TID@0800,1200,2100 [facility] Last Admin: 11/19/18 20:16 Dose: 200 mg Own Med (Trazodone (100 Mg)) 0 mg PO BEDTIME PRN PRN Reason: Insomnia Own Med (Trazodone (100 Mg)) 100 mg PO BEDTIME@2100 [facility] Last Admin: 11/19/18 20:15 Dose: 100 mg Ammonium Lactate (Lotion 12% (Otc)) 1 each TOP BID@10,20 [facility] Last Admin: 11/19/18 19:26 Dose: 1 each Lorazepam 0.5mg (Own (Supply)) 1 each PO BID PRN PRN Reason: Anxiety Last Admin: 11/19/18 20:17 Dose: 1 each Sertraline. 50mg ( (Own Supply)) 0 mg PO DAILY [facility] Last Admin: 11/19/18 07:41 Dose: 50 mg Omeprazole (Omeprazole) 20 mg PO DAILY [facility] Last Admin: 11/19/18 07:52 Dose: 20 mg Potassium Chloride (Klor-Con 10) 10 meq PO DAILY [facility] Last Admin: 11/19/18 07:41 Dose: 10 meq Senna/Docusate Sodium (Senna Plus) 1 tab PO BID [facility] Last Admin: 11/19/18 19:29 Dose: 1 tab Thiamine HCl (Vitamin B-1) 100 mg PO DAILY@1200 [facility] Last Admin: 11/19/18 12:30 Dose: 100 mg Discontinued Medications Cholecalciferol (Vitamin D3) 1,000 units PO DAILY [facility] Last Admin: 10/29/18 13:12 Dose: 1,000 units Lorazepam (Ativan) 0.5 mg PO ONETIME ONE Stop: 11/06/18 13:35 Last Admin: 11/06/18 14:00 Dose: 0.5 mg Magnesium Oxide (Magnesium Oxide) 800 mg PO TID [facility] Last Admin: 11/13/18 11:22 Dose: 800 mg Metformin HCl (Glucophage) 500 mg PO DAILY [facility] Last Admin: 11/10/18 08:52 Dose: 500 mg Metformin HCl (Glucophage) 500 mg PO BID [facility]; Taper Stop: 05/14/24 19:59 Last Admin: 11/11/18 09:00 Dose: 500 mg (Escitalopram [ (Lexapro] 15 Mg)) 0 mg PO DAILY [facility] Stop: 11/03/18 08:01 Last Admin: 11/03/18 08:25 Dose: 15 mg Sertraline. 25mg ( (Own Supply)) 0 mg PO DAILY [facility] Stop: 11/17/18 08:01 Last Admin: 11/17/18 08:05 Dose: 25 mg Topiramate. 25mg ( (Own Supply)) 25 mg PO BEDTIME [facility]; Taper Stop: 08/19/21 19:59 Last Admin: 11/12/18 21:29 Dose: Not Given Senna/Docusate Sodium (Senna Plus) 1 tab PO QID PRN PRN Reason: Constipation Last Admin: 10/29/18 07:52 Dose: 1 tab - Exam General: Alert, Oriented HEENT: Pupils Equal GI/Abdominal Exam: Normal Bowel Sounds, Soft, Non-Tender Extremities: Normal Inspection, No Pedal Edema. No: Pedal Edema Skin: Warm, Dry Psy/Mental Status: Alert, Normal Affect - Problem List Review Problem List Initiated/Reviewed/Updated: Yes - My Orders Last 24 Hours: My Active Orders 11/19/18 09:15 Communication Order [RC] STAT - Assessment Assessment:: 1. morbid obesity check with the pharmacy on Topamax or consider Phentermine again 2. Smoking she has now quit 3. Hyponatremia recheck sodium in 2 weeks 4. Hypomagnesemia increase mag that should help constipation 5. Essential hypertension. Continue home meds 6. Depression continue with psych - Plan Plan:: Continue swing bed cares and continue with weight loss efforts. Multiple visits with [place] specialists are also planned including italian teacher and neuro
[2018-11-20] MEDS: Omeprazole 20 MG Cap.CR PO SCH (07:52)
[2018-11-20] MEDS: Cholecalciferol (Vitamin D3) 1,000 Unit Tab PO SCH (07:52)
[2018-11-20] MEDS: Cyanocobalamin (Vitamin B12) 1,000 MCG Tab PO SCH (07:52)
[2018-11-20] MEDS: Magnesium Oxide 400 MG Tab PO SCH ×3 (07:53→21:12)
[2018-11-20] MEDS: FOLIC ACID 1 MG PO SCH ×3 (07:53→21:05)
[2018-11-20] MEDS: OXCARBAZEPINE 600 MG PO SCH ×2 (07:53→21:07)
[2018-11-20] MEDS: Aspirin 325 MG Tab.EC PO SCH (07:53)
[2018-11-20] MEDS: Multivitamins with Iron/Calcium/Folic Acid/Minerals Tab PO SCH (07:53)
[2018-11-20] MEDS: METFORMIN 500 MG PO SCH ×2 (07:54→18:40)
[2018-11-20] MEDS: BUPROPION HCL 300 MG PO SCH (07:54)
[2018-11-20] MEDS: POTASSIUM CHLORIDE 10 MEQ PO SCH (07:54)
[2018-11-20] MEDS: CYCLOBENZAPRINE 10 MG PO PRN ×2 (07:54→21:06)
[2018-11-20] MEDS: Nicotine 21 MG/24 Hr Patch TRDERM SCH (07:55)
[2018-11-20] MEDS: MORPHINE 30 MG PO SCH ×2 (07:55→21:03)
[2018-11-20] MEDS: FUROSEMIDE 40 MG PO SCH ×2 (07:55→12:01)
[2018-11-20] MEDS: HYDROXYZINE HCL 25 MG PO PRN ×2 (07:56→21:09)
[2018-11-20] MEDS: LYRICA PO SCH ×3 (07:56→21:13)
[2018-11-20] MEDS: Docusate Sodium 100 MG Cap PO PRN ×2 (09:02→18:40)
[2018-11-20] MEDS: AMMONIUM LACTATE 12% TOP SCH ×2 (09:03→21:11)
[2018-11-20] MEDS: Thiamine 100 MG Tab PO SCH (12:02)
[2018-11-20] MEDS: TRAZODONE 100 MG PO SCH (21:06)
[2018-11-20] MEDS: TOPIRAMATE 25 MG PO SCH (21:08)
[2018-11-21] MEDS ORDERED: Bisacodyl 5 MG Tab PO SCH (08:00)
[2018-11-21] MEDS: Cholecalciferol (Vitamin D3) 1,000 Unit Tab PO SCH (08:04)
[2018-11-21] MEDS: Docusate Sodium 100 MG Cap PO PRN (08:04)
[2018-11-21] MEDS: Omeprazole 20 MG Cap.CR PO SCH (08:04)
[2018-11-21] MEDS: Magnesium Oxide 400 MG Tab PO SCH ×3 (08:04→20:45)
[2018-11-21] MEDS: Bisacodyl 5 MG Tab PO PRN (08:04)
[2018-11-21] MEDS: HYDROXYZINE HCL 25 MG PO PRN ×2 (08:04→20:51)
[2018-11-21] MEDS: Multivitamins with Iron/Calcium/Folic Acid/Minerals Tab PO SCH (08:04)
[2018-11-21] MEDS: Cyanocobalamin (Vitamin B12) 1,000 MCG Tab PO SCH (08:05)
[2018-11-21] MEDS: Aspirin 325 MG Tab.EC PO SCH (08:05)
[2018-11-21] MEDS: BUPROPION HCL 300 MG PO SCH (08:05)
[2018-11-21] MEDS: FUROSEMIDE 40 MG PO SCH ×2 (08:05→12:00)
[2018-11-21] MEDS: METFORMIN 500 MG PO SCH ×2 (08:05→17:07)
[2018-11-21] MEDS: CYCLOBENZAPRINE 10 MG PO PRN ×2 (08:05→20:44)
[2018-11-21] MEDS: OXCARBAZEPINE 600 MG PO SCH ×2 (08:05→20:43)
[2018-11-21] MEDS: POTASSIUM CHLORIDE 10 MEQ PO SCH (08:05)
[2018-11-21] MEDS: LYRICA PO SCH ×3 (08:06→20:47)
[2018-11-21] MEDS: MORPHINE 30 MG PO SCH ×2 (08:06→20:48)
[2018-11-21] MEDS: Nicotine 21 MG/24 Hr Patch TRDERM SCH (08:07)
[2018-11-21] MEDS: FOLIC ACID 1 MG PO SCH ×3 (08:08→20:45)
[2018-11-21] MEDS: Thiamine 100 MG Tab PO SCH (12:00)
[2018-11-21] MEDS: AMMONIUM LACTATE 12% TOP SCH ×2 (12:01→20:42)
[2018-11-21] MEDS ORDERED: Magnesium Hydroxide 400 MG/5 ML Susp 30 ML Cup PO PRN (16:37)
[2018-11-21] MEDS: TRAZODONE 100 MG PO SCH (20:43)
[2018-11-21] MEDS: TOPIRAMATE 25 MG PO SCH (20:50)
[2018-11-22] MEDS: HYDROXYZINE HCL 25 MG PO PRN ×2 (09:00→18:14)
[2018-11-22] MEDS: OXCARBAZEPINE 600 MG PO SCH ×2 (09:00→20:41)
[2018-11-22] MEDS: BUPROPION HCL 300 MG PO SCH (09:00)
[2018-11-22] MEDS: CYCLOBENZAPRINE 10 MG PO PRN ×2 (09:01→18:15)
[2018-11-22] MEDS: MORPHINE 30 MG PO SCH ×2 (09:01→20:45)
[2018-11-22] MEDS: FUROSEMIDE 40 MG PO SCH ×2 (09:01→12:06)
[2018-11-22] MEDS: LYRICA PO SCH ×3 (09:01→20:48)
[2018-11-22] MEDS: METFORMIN 500 MG PO SCH ×2 (09:01→18:12)
[2018-11-22] MEDS: FOLIC ACID 1 MG PO SCH ×3 (09:01→20:41)
[2018-11-22] MEDS: POTASSIUM CHLORIDE 10 MEQ PO SCH (09:01)
[2018-11-22] MEDS: Cholecalciferol (Vitamin D3) 1,000 Unit Tab PO SCH (09:02)
[2018-11-22] MEDS: Docusate Sodium 100 MG Cap PO PRN ×3 (09:02→18:14)
[2018-11-22] MEDS: Magnesium Oxide 400 MG Tab PO SCH ×3 (09:02→20:49)
[2018-11-22] MEDS: Multivitamins with Iron/Calcium/Folic Acid/Minerals Tab PO SCH (09:02)
[2018-11-22] MEDS: Cyanocobalamin (Vitamin B12) 1,000 MCG Tab PO SCH (09:02)
[2018-11-22] MEDS: Omeprazole 20 MG Cap.CR PO SCH (09:02)
[2018-11-22] MEDS: Bisacodyl 5 MG Tab PO PRN ×2 (09:03→18:14)
[2018-11-22] MEDS: Nicotine 21 MG/24 Hr Patch TRDERM SCH (09:03)
[2018-11-22] MEDS: AMMONIUM LACTATE 12% TOP SCH ×2 (09:03→20:49)
[2018-11-22] MEDS: Aspirin 325 MG Tab.EC PO SCH (09:03)
[2018-11-22] MEDS: Thiamine 100 MG Tab PO SCH (12:06)
[2018-11-22] MEDS: TRAZODONE 100 MG PO SCH (20:39)
[2018-11-22] MEDS: TOPIRAMATE 25 MG PO SCH (20:45)
[2018-11-23] MEDS: HYDROXYZINE HCL 25 MG PO PRN ×2 (00:57→08:32)
[2018-11-23] MEDS: CYCLOBENZAPRINE 10 MG PO PRN ×3 (00:58→21:51)
[2018-11-23] MEDS: Magnesium Oxide 400 MG Tab PO SCH ×3 (08:26→21:48)
[2018-11-23] MEDS: Multivitamins with Iron/Calcium/Folic Acid/Minerals Tab PO SCH (08:27)
[2018-11-23] MEDS: Cholecalciferol (Vitamin D3) 1,000 Unit Tab PO SCH (08:27)
[2018-11-23] MEDS: Cyanocobalamin (Vitamin B12) 1,000 MCG Tab PO SCH (08:27)
[2018-11-23] MEDS: Omeprazole 20 MG Cap.CR PO SCH (08:27)
[2018-11-23] MEDS: Aspirin 325 MG Tab.EC PO SCH (08:27)
[2018-11-23] MEDS: LYRICA PO SCH ×3 (08:30→21:51)
[2018-11-23] MEDS: MORPHINE 30 MG PO SCH ×2 (08:30→21:51)
[2018-11-23] MEDS: OXCARBAZEPINE 600 MG PO SCH ×2 (08:32→21:50)
[2018-11-23] MEDS: FUROSEMIDE 40 MG PO SCH ×2 (08:33→11:00)
[2018-11-23] MEDS: BUPROPION HCL 300 MG PO SCH (08:33)
[2018-11-23] MEDS: FOLIC ACID 1 MG PO SCH ×3 (08:33→21:50)
[2018-11-23] MEDS: POTASSIUM CHLORIDE 10 MEQ PO SCH (08:34)
[2018-11-23] MEDS: METFORMIN 500 MG PO SCH ×2 (08:34→16:59)
[2018-11-23] MEDS: AMMONIUM LACTATE 12% TOP SCH ×2 (10:53→21:56)
[2018-11-23] MEDS: Thiamine 100 MG Tab PO SCH (11:00)
[2018-11-23] MEDS: Ibuprofen 200 MG Tab PO PRN (17:01)
[2018-11-23] MEDS: TRAZODONE 100 MG PO SCH (21:49)
[2018-11-23] MEDS: TOPIRAMATE 25 MG PO SCH (21:55)
[2018-11-24] MEDS: POTASSIUM CHLORIDE 10 MEQ PO SCH (07:23)
[2018-11-24] MEDS: BUPROPION HCL 300 MG PO SCH (07:23)
[2018-11-24] MEDS: HYDROXYZINE HCL 25 MG PO PRN (07:23)
[2018-11-24] MEDS: OXCARBAZEPINE 600 MG PO SCH ×2 (07:24→20:01)
[2018-11-24] MEDS: FOLIC ACID 1 MG PO SCH ×3 (07:24→19:47)
[2018-11-24] MEDS: FUROSEMIDE 40 MG PO SCH ×2 (07:24→11:01)
[2018-11-24] MEDS: CYCLOBENZAPRINE 10 MG PO PRN ×2 (07:24→20:01)
[2018-11-24] MEDS: Cyanocobalamin (Vitamin B12) 1,000 MCG Tab PO SCH (07:25)
[2018-11-24] MEDS: Multivitamins with Iron/Calcium/Folic Acid/Minerals Tab PO SCH (07:25)
[2018-11-24] MEDS: Omeprazole 20 MG Cap.CR PO SCH (07:25)
[2018-11-24] MEDS: Magnesium Oxide 400 MG Tab PO SCH ×3 (07:25→19:50)
[2018-11-24] MEDS: Cholecalciferol (Vitamin D3) 1,000 Unit Tab PO SCH (07:25)
[2018-11-24] MEDS: Aspirin 325 MG Tab.EC PO SCH (07:25)
[2018-11-24] MEDS: METFORMIN 500 MG PO SCH ×2 (07:25→17:11)
[2018-11-24] MEDS: MORPHINE 30 MG PO SCH ×2 (07:26→19:49)
[2018-11-24] MEDS: LYRICA PO SCH ×3 (07:27→20:00)
[2018-11-24] MEDS: AMMONIUM LACTATE 12% TOP SCH ×2 (09:02→19:47)
[2018-11-24] MEDS: Ibuprofen 200 MG Tab PO PRN (09:06)
[2018-11-24] MEDS: Thiamine 100 MG Tab PO SCH (11:02)
[2018-11-24] MEDS: TOPIRAMATE 25 MG PO SCH (19:54)
[2018-11-24] MEDS: TRAZODONE 100 MG PO SCH (20:01)
[2018-11-25] MEDS: HYDROXYZINE HCL 25 MG PO PRN ×2 (09:16→17:47)
[2018-11-25] MEDS: MORPHINE 30 MG PO SCH ×2 (09:16→20:55)
[2018-11-25] MEDS: LYRICA PO SCH ×3 (09:16→21:18)
[2018-11-25] MEDS: POTASSIUM CHLORIDE 10 MEQ PO SCH (09:16)
[2018-11-25] MEDS: OXCARBAZEPINE 600 MG PO SCH ×2 (09:17→21:19)
[2018-11-25] MEDS: FUROSEMIDE 40 MG PO SCH ×2 (09:17→11:25)
[2018-11-25] MEDS: FOLIC ACID 1 MG PO SCH ×3 (09:17→20:55)
[2018-11-25] MEDS: CYCLOBENZAPRINE 10 MG PO PRN ×2 (09:17→17:48)
[2018-11-25] MEDS: BUPROPION HCL 300 MG PO SCH (09:17)
[2018-11-25] MEDS: Cholecalciferol (Vitamin D3) 1,000 Unit Tab PO SCH (09:17)
[2018-11-25] MEDS: METFORMIN 500 MG PO SCH ×3 (09:17→17:47)
[2018-11-25] MEDS: Cyanocobalamin (Vitamin B12) 1,000 MCG Tab PO SCH (09:18)
[2018-11-25] MEDS: Magnesium Oxide 400 MG Tab PO SCH ×3 (09:18→20:55)
[2018-11-25] MEDS: Aspirin 325 MG Tab.EC PO SCH (09:18)
[2018-11-25] MEDS: Docusate Sodium 100 MG Cap PO PRN (09:18)
[2018-11-25] MEDS: Multivitamins with Iron/Calcium/Folic Acid/Minerals Tab PO SCH (09:18)
[2018-11-25] MEDS: Omeprazole 20 MG Cap.CR PO SCH (09:18)
[2018-11-25] MEDS: AMMONIUM LACTATE 12% TOP SCH ×2 (09:19→20:55)
[2018-11-25] MEDS: Thiamine 100 MG Tab PO SCH (11:25)
[2018-11-25] MEDS ORDERED: Calcium Carbonate 750 MG Tab.Chew PO PRN (11:29)
[2018-11-25] MEDS: Ibuprofen 200 MG Tab PO PRN (14:29)
[2018-11-25] MEDS: TOPIRAMATE 25 MG PO SCH (20:55)
[2018-11-25] MEDS: TRAZODONE 100 MG PO SCH (21:17)
[2018-11-26] MEDS: OXCARBAZEPINE 600 MG PO SCH ×2 (08:53→21:04)
[2018-11-26] MEDS: POTASSIUM CHLORIDE 10 MEQ PO SCH (08:53)
[2018-11-26] MEDS: FUROSEMIDE 40 MG PO SCH ×2 (08:53→12:45)
[2018-11-26] MEDS: BUPROPION HCL 300 MG PO SCH (08:53)
[2018-11-26] MEDS: METFORMIN 500 MG PO SCH ×3 (08:53→18:09)
[2018-11-26] MEDS: MORPHINE 30 MG PO SCH ×2 (08:54→20:59)
[2018-11-26] MEDS: Omeprazole 20 MG Cap.CR PO SCH (08:54)
[2018-11-26] MEDS: LYRICA PO SCH ×3 (08:54→21:05)
[2018-11-26] MEDS: CYCLOBENZAPRINE 10 MG PO PRN ×2 (08:54→21:06)
[2018-11-26] MEDS: HYDROXYZINE HCL 25 MG PO PRN (08:54)
[2018-11-26] MEDS: Cyanocobalamin (Vitamin B12) 1,000 MCG Tab PO SCH (08:54)
[2018-11-26] MEDS: FOLIC ACID 1 MG PO SCH ×3 (08:54→20:30)
[2018-11-26] MEDS: Cholecalciferol (Vitamin D3) 1,000 Unit Tab PO SCH (08:54)
[2018-11-26] MEDS: Aspirin 325 MG Tab.EC PO SCH (08:55)
[2018-11-26] MEDS: Magnesium Oxide 400 MG Tab PO SCH ×3 (08:55→20:30)
[2018-11-26] MEDS: Multivitamins with Iron/Calcium/Folic Acid/Minerals Tab PO SCH (08:55)
[2018-11-26] MEDS: AMMONIUM LACTATE 12% TOP SCH ×2 (08:59→20:30)
[2018-11-26] MEDS: Thiamine 100 MG Tab PO SCH (12:44)
[2018-11-26] MEDS: Ibuprofen 200 MG Tab PO PRN (12:47)
[2018-11-26] MEDS: TOPIRAMATE 25 MG PO SCH (20:30)
[2018-11-26] MEDS: TRAZODONE 100 MG PO SCH (21:05)
[2018-11-27 06:49] VITALS: BP 143/83
[2018-11-27] MEDS: MORPHINE 30 MG PO SCH (08:37)
[2018-11-27] MEDS: CYCLOBENZAPRINE 10 MG PO PRN ×2 (08:38→14:28)
[2018-11-27] MEDS: OXCARBAZEPINE 600 MG PO SCH (08:38)
[2018-11-27] MEDS: LYRICA PO SCH ×2 (08:38→12:10)
[2018-11-27] MEDS: HYDROXYZINE HCL 25 MG PO PRN ×2 (08:38→14:28)
[2018-11-27] MEDS: FUROSEMIDE 40 MG PO SCH ×2 (08:38→12:11)
[2018-11-27] MEDS: POTASSIUM CHLORIDE 10 MEQ PO SCH (08:38)
[2018-11-27] MEDS: METFORMIN 500 MG PO SCH ×3 (08:39→17:54)
[2018-11-27] MEDS: BUPROPION HCL 300 MG PO SCH (08:39)
[2018-11-27] MEDS: FOLIC ACID 1 MG PO SCH ×2 (08:39→12:11)
[2018-11-27] MEDS: Cyanocobalamin (Vitamin B12) 1,000 MCG Tab PO SCH (08:40)
[2018-11-27] MEDS: Omeprazole 20 MG Cap.CR PO SCH (08:40)
[2018-11-27] MEDS: Magnesium Oxide 400 MG Tab PO SCH ×2 (08:40→12:09)
[2018-11-27] MEDS: Cholecalciferol (Vitamin D3) 1,000 Unit Tab PO SCH (08:40)
[2018-11-27] MEDS: Multivitamins with Iron/Calcium/Folic Acid/Minerals Tab PO SCH (08:40)
[2018-11-27] MEDS: Aspirin 325 MG Tab.EC PO SCH (08:41)
[2018-11-27] MEDS: AMMONIUM LACTATE 12% TOP SCH (10:30)
[2018-11-27] MEDS: Thiamine 100 MG Tab PO SCH (12:09)
[2018-11-27] MEDS: Ibuprofen 200 MG Tab PO PRN (14:30)
--- NOTE | 2018-12-01 08:51 | DISCH ---
PRIMARY DISCHARGE DIAGNOSES: 1. Morbid obesity. 2. Suspicion for sleep apnea. 3. Essential hypertension. 4. History of Guillain-Woodburn with painful neuropathy. 5. Pelvic mass, recently evaluated by Gynecology. 6. Remote history of alcohol abuse. 7. Anxiety and depression following with Psych. 8. Prediabetes. 9. History of smoking, has quit nicotine patch as of 10/19. REASON FOR ADMISSION: On the date of admission, this 47-year-old female who knew to help with ADLs and to quit smoking and lose weight prior gastric bypass surgery was discharged for a scheduled sleep apnea test down in [place]. MKA: 11/30/2018 08:35:15 MODL: 12/01/2018 06:53:53 /[id number]
== END 2018-11-27 18:20 | disposition other institution (70) | DRG 641 ==
LOC: VM.MS 14:42
PROVIDERS: ADMIT Internal Medicine; ATTEND Internal Medicine
DX: E66.01 Morbid (severe) obesity due to excess calories (principal); G61.0 Guillain-Barre syndrome; E87.1 Hypo-osmolality and hyponatremia; R19.00 Intra-abdominal and pelvic swelling, mass and lump, unspecified site; E78.5 Hyperlipidemia, unspecified; F41.9 Anxiety disorder, unspecified; F32.9 Major depressive disorder, single episode, unspecified; G89.29 Other chronic pain; R09.02 Hypoxemia; R73.03 Prediabetes; F17.200 Nicotine dependence, unspecified, uncomplicated; K21.9 Gastro-esophageal reflux disease without esophagitis; I10 Essential (primary) hypertension; E83.42 Hypomagnesemia; K59.00 Constipation, unspecified; G60.9 Hereditary and idiopathic neuropathy, unspecified; E78.1 Pure hyperglyceridemia; E53.8 Deficiency of other specified B group vitamins; G47.00 Insomnia, unspecified; F41.0 Panic disorder [episodic paroxysmal anxiety]; D64.9 Anemia, unspecified; Z68.44 Body mass index [BMI] 60.0-69.9, adult; Z79.899 Other long term (current) drug therapy
CPT/HCPCS: 36415; 76830; 76856; 80048; 82962; 83735; 97110-GO; 97161-GP; 97165-GO; A9270-GY

== ENCOUNTER 2018-11-28 07:55 | Inpatient (IN) | payer MEDICAID ==
[~2018-11-28 07:55] MED LIST: Bisacodyl 5 MG Tab PO PRN; Calcium Carbonate 750 MG Tab.Chew PO PRN; Magnesium Hydroxide 400 MG/5 ML Susp 30 ML Cup PO PRN
[2018-11-28] MEDS: METFORMIN 500 MG PO SCH ×3 (09:36→18:30)
[2018-11-28] MEDS: OXCARBAZEPINE 600 MG PO SCH ×2 (09:36→21:16)
[2018-11-28] MEDS: FUROSEMIDE 40 MG PO SCH ×2 (09:36→12:59)
[2018-11-28] MEDS: BUPROPION HCL 300 MG PO SCH (09:37)
[2018-11-28] MEDS: FOLIC ACID 1 MG PO SCH ×3 (09:37→21:13)
[2018-11-28] MEDS: POTASSIUM CHLORIDE 10 MEQ PO SCH (09:38)
[2018-11-28] MEDS: MORPHINE 30 MG PO SCH ×2 (09:38→21:15)
[2018-11-28] MEDS: LYRICA PO SCH ×3 (09:39→21:15)
[2018-11-28] MEDS: Omeprazole 20 MG Cap.CR PO SCH (09:53)
[2018-11-28] MEDS: Magnesium Oxide 400 MG Tab PO SCH ×3 (09:54→21:12)
[2018-11-28] MEDS: Cholecalciferol (Vitamin D3) 1,000 Unit Tab PO SCH (09:54)
[2018-11-28] MEDS: Aspirin 325 MG Tab.EC PO SCH (09:54)
[2018-11-28] MEDS: Cyanocobalamin (Vitamin B12) 1,000 MCG Tab PO SCH (09:54)
[2018-11-28] MEDS: Multivitamins with Iron/Calcium/Folic Acid/Minerals Tab PO SCH (09:54)
[2018-11-28] MEDS: AMMONIUM LACTATE 12% TOP SCH ×2 (09:56→21:17)
[2018-11-28] MEDS: CYCLOBENZAPRINE 10 MG PO PRN ×2 (13:02→21:15)
[2018-11-28] MEDS: Thiamine 100 MG Tab PO SCH (13:17)
[2018-11-28] MEDS: TRAZODONE 100 MG PO SCH (21:13)
[2018-11-28] MEDS: HYDROXYZINE HCL 25 MG PO PRN (21:15)
[2018-11-28] MEDS: TOPIRAMATE 25 MG PO SCH (21:16)
[2018-11-29] MEDS: Omeprazole 20 MG Cap.CR PO SCH (08:00)
[2018-11-29] MEDS: Aspirin 325 MG Tab.EC PO SCH (08:00)
[2018-11-29] MEDS: Multivitamins with Iron/Calcium/Folic Acid/Minerals Tab PO SCH (08:01)
[2018-11-29] MEDS: Cyanocobalamin (Vitamin B12) 1,000 MCG Tab PO SCH (08:01)
[2018-11-29] MEDS: Magnesium Oxide 400 MG Tab PO SCH ×3 (08:05→20:52)
[2018-11-29] MEDS: Cholecalciferol (Vitamin D3) 1,000 Unit Tab PO SCH (08:05)
[2018-11-29] MEDS: LYRICA PO SCH ×3 (08:06→20:52)
[2018-11-29] MEDS: METFORMIN 500 MG PO SCH ×3 (08:08→17:45)
[2018-11-29] MEDS: BUPROPION HCL 300 MG PO SCH (08:08)
[2018-11-29] MEDS: POTASSIUM CHLORIDE 10 MEQ PO SCH (08:08)
[2018-11-29] MEDS: OXCARBAZEPINE 600 MG PO SCH ×2 (08:09→20:50)
[2018-11-29] MEDS: FUROSEMIDE 40 MG PO SCH ×2 (08:09→11:18)
[2018-11-29] MEDS: HYDROXYZINE HCL 25 MG PO PRN ×2 (08:10→20:53)
[2018-11-29] MEDS: CYCLOBENZAPRINE 10 MG PO PRN ×2 (08:10→20:53)
[2018-11-29] MEDS: FOLIC ACID 1 MG PO SCH ×3 (08:11→20:50)
[2018-11-29] MEDS: MORPHINE 30 MG PO SCH ×2 (08:13→20:52)
[2018-11-29] MEDS: AMMONIUM LACTATE 12% TOP SCH ×2 (11:14→20:56)
[2018-11-29] MEDS: Thiamine 100 MG Tab PO SCH (11:15)
[2018-11-29] MEDS: Ibuprofen 200 MG Tab PO PRN (11:24)
[2018-11-29] MEDS: TOPIRAMATE 25 MG PO SCH (20:53)
[2018-11-29] MEDS: TRAZODONE 100 MG PO SCH (20:55)
[2018-11-30] MEDS: MORPHINE 30 MG PO SCH ×2 (08:02→20:54)
[2018-11-30] MEDS: LYRICA PO SCH ×3 (08:02→20:56)
[2018-11-30] MEDS: BUPROPION HCL 300 MG PO SCH (08:03)
[2018-11-30] MEDS: METFORMIN 500 MG PO SCH ×3 (08:03→16:59)
[2018-11-30] MEDS: OXCARBAZEPINE 600 MG PO SCH ×2 (08:03→20:50)
[2018-11-30] MEDS: Multivitamins with Iron/Calcium/Folic Acid/Minerals Tab PO SCH (08:04)
[2018-11-30] MEDS: Magnesium Oxide 400 MG Tab PO SCH ×3 (08:04→20:46)
[2018-11-30] MEDS: Cholecalciferol (Vitamin D3) 1,000 Unit Tab PO SCH (08:04)
[2018-11-30] MEDS: FOLIC ACID 1 MG PO SCH ×3 (08:04→20:46)
[2018-11-30] MEDS: FUROSEMIDE 40 MG PO SCH ×2 (08:04→11:02)
[2018-11-30] MEDS: Cyanocobalamin (Vitamin B12) 1,000 MCG Tab PO SCH (08:04)
[2018-11-30] MEDS: Aspirin 325 MG Tab.EC PO SCH (08:04)
[2018-11-30] MEDS: Omeprazole 20 MG Cap.CR PO SCH (08:05)
[2018-11-30] MEDS: CYCLOBENZAPRINE 10 MG PO PRN ×2 (08:06→20:53)
[2018-11-30] MEDS: HYDROXYZINE HCL 25 MG PO PRN (08:07)
--- NOTE | 2018-11-30 09:31 | PN ---
Progress Note for GEMMA NASH Date: 11/30/2018 Room #: VM.201 HISTORY OF PRESENT ILLNESS: This is a 47-year-old on swing bed since 10/27/2018 for weight loss efforts along with quitting smoking. She is morbidly obese, over 400 pounds. She believes herself to be down about 17 pounds. She is down at least 7 pounds based on our last weights. She is still having some loose stools. Did have some constipation, but then I increased her magnesium again. Otherwise, she went to sleep apnea testing, was able to tolerate one of the mask. She has not been wearing oxygen here at night because she forgets. Otherwise, did have CHEMISTRY FACULTY MEMBER evaluation with biopsies last week, which she states was painful. Sodiums have been running low. She has been walking more in the hospital, at least 6 laps. OBJECTIVE: Vital Signs: Her temperature 97, weight 186.2 kg, pulse 92, blood pressure 111/77, respiratory rate 18, O2 of 98% on room air. GENERAL: She is in no acute distress. HEART: Regular rate and rhythm. S1, S2 without murmur. LUNGS: Lung sounds are clear to auscultation. ABDOMEN: Has positive bowel sounds. Soft, nontender. EXTREMITIES: Warm and dry. Her feet, the scaling has improved. She still has a corn over the plantar aspect of the right foot. ASSESSMENT: 1. Hyponatremia. We will repeat a sodium tomorrow. 2. Morbid obesity. We will continue weight loss efforts. 3. Anxiety and depression. She will continue to follow with Psychiatry. 4. Prediabetes. 5. Nocturnal hypoxia, probably sleep apnea. We will make sure she uses her oxygen at night until she gets her CPAP. 6. Smoking. She has been off the nicotine patch now since 10/19/2018. 7. Loose stools. We will check her magnesium level and adjust her supplements as needed. She also is newly started on Topamax for weight loss efforts. PLAN: Continue swing bed cares for help with ADLs. Continue to support weight loss efforts. Continue to get to all outpatient appointments and get her sleep apnea treatment started. [employer] are available to help with arrangements. MKA: 11/30/2018 08:38:00 MODL: 11/30/2018 09:21:24 /[id number]
[2018-11-30] MEDS: POTASSIUM CHLORIDE 10 MEQ PO SCH (10:51)
[2018-11-30] MEDS: AMMONIUM LACTATE 12% TOP SCH ×2 (10:51→20:46)
[2018-11-30] MEDS: Thiamine 100 MG Tab PO SCH (11:01)
[2018-11-30] MEDS: TRAZODONE 100 MG PO SCH (20:49)
[2018-11-30] MEDS: TOPIRAMATE 25 MG PO SCH (20:53)
[2018-11-30] MEDS: Ibuprofen 200 MG Tab PO PRN (21:00)
[2018-12-01 07:45] LABS: CHLORIDE,CL 92 mmol/L (98-107)
[2018-12-01 07:50] LABS: ANION GAP 10.2 mmol/L (10-20)
[2018-12-01 07:52] LABS: SODIUM,NA 129 mmol/L (136-145)
[2018-12-01] MEDS: MORPHINE 30 MG PO SCH ×2 (08:24→21:37)
[2018-12-01] MEDS: LYRICA PO SCH ×3 (08:25→21:39)
[2018-12-01] MEDS: OXCARBAZEPINE 600 MG PO SCH ×2 (08:25→21:33)
[2018-12-01] MEDS: FOLIC ACID 1 MG PO SCH ×3 (08:26→21:35)
[2018-12-01] MEDS: FUROSEMIDE 40 MG PO SCH ×2 (08:26→11:05)
[2018-12-01] MEDS: Aspirin 325 MG Tab.EC PO SCH (08:27)
[2018-12-01] MEDS: METFORMIN 500 MG PO SCH ×3 (08:27→17:15)
[2018-12-01] MEDS: Omeprazole 20 MG Cap.CR PO SCH (08:27)
[2018-12-01] MEDS: BUPROPION HCL 300 MG PO SCH (08:27)
[2018-12-01] MEDS: POTASSIUM CHLORIDE 10 MEQ PO SCH (08:27)
[2018-12-01] MEDS: HYDROXYZINE HCL 25 MG PO PRN ×2 (08:28→21:35)
[2018-12-01] MEDS: Multivitamins with Iron/Calcium/Folic Acid/Minerals Tab PO SCH (08:28)
[2018-12-01] MEDS: CYCLOBENZAPRINE 10 MG PO PRN ×2 (08:28→21:35)
[2018-12-01] MEDS: Magnesium Oxide 400 MG Tab PO SCH ×3 (08:28→21:34)
[2018-12-01] MEDS: Cholecalciferol (Vitamin D3) 1,000 Unit Tab PO SCH (08:28)
[2018-12-01] MEDS: Cyanocobalamin (Vitamin B12) 1,000 MCG Tab PO SCH (08:28)
[2018-12-01] MEDS: Thiamine 100 MG Tab PO SCH (11:05)
[2018-12-01] MEDS: AMMONIUM LACTATE 12% TOP SCH ×2 (11:05→21:39)
[2018-12-01] MEDS: TRAZODONE 100 MG PO SCH (21:33)
[2018-12-01] MEDS: TOPIRAMATE 25 MG PO SCH (21:36)
[2018-12-02] MEDS: METFORMIN 500 MG PO SCH ×3 (08:28→17:04)
[2018-12-02] MEDS: FOLIC ACID 1 MG PO SCH ×3 (08:28→20:29)
[2018-12-02] MEDS: OXCARBAZEPINE 600 MG PO SCH ×2 (08:29→20:33)
[2018-12-02] MEDS: FUROSEMIDE 40 MG PO SCH ×2 (08:29→12:23)
[2018-12-02] MEDS: MORPHINE 30 MG PO SCH ×2 (08:30→20:33)
[2018-12-02] MEDS: LYRICA PO SCH ×3 (08:30→20:33)
[2018-12-02] MEDS: Cyanocobalamin (Vitamin B12) 1,000 MCG Tab PO SCH (08:31)
[2018-12-02] MEDS: Aspirin 325 MG Tab.EC PO SCH (08:31)
[2018-12-02] MEDS: Magnesium Oxide 400 MG Tab PO SCH ×2 (08:31→20:29)
[2018-12-02] MEDS: Multivitamins with Iron/Calcium/Folic Acid/Minerals Tab PO SCH (08:31)
[2018-12-02] MEDS: Omeprazole 20 MG Cap.CR PO SCH (08:31)
[2018-12-02] MEDS: Cholecalciferol (Vitamin D3) 1,000 Unit Tab PO SCH (08:31)
[2018-12-02] MEDS: BUPROPION HCL 300 MG PO SCH (08:32)
[2018-12-02] MEDS: POTASSIUM CHLORIDE 10 MEQ PO SCH (08:32)
[2018-12-02] MEDS: AMMONIUM LACTATE 12% TOP SCH ×2 (12:25→20:33)
[2018-12-02] MEDS: Thiamine 100 MG Tab PO SCH (12:25)
[2018-12-02] MEDS: CYCLOBENZAPRINE 10 MG PO PRN ×2 (12:25→20:33)
[2018-12-02] MEDS: HYDROXYZINE HCL 25 MG PO PRN ×2 (12:26→20:33)
[2018-12-02] MEDS: Docusate Sodium 100 MG Cap PO PRN (17:04)
[2018-12-02] MEDS: TOPIRAMATE 25 MG PO SCH (20:32)
[2018-12-02] MEDS: TRAZODONE 100 MG PO SCH (20:32)
[2018-12-03] MEDS: OXCARBAZEPINE 600 MG PO SCH ×2 (07:34→20:50)
[2018-12-03] MEDS: POTASSIUM CHLORIDE 10 MEQ PO SCH (07:34)
[2018-12-03] MEDS: BUPROPION HCL 300 MG PO SCH (07:35)
[2018-12-03] MEDS: METFORMIN 500 MG PO SCH ×3 (07:35→18:08)
[2018-12-03] MEDS: FUROSEMIDE 40 MG PO SCH ×2 (07:35→11:47)
[2018-12-03] MEDS: Cholecalciferol (Vitamin D3) 1,000 Unit Tab PO SCH (07:36)
[2018-12-03] MEDS: Multivitamins with Iron/Calcium/Folic Acid/Minerals Tab PO SCH (07:36)
[2018-12-03] MEDS: Aspirin 325 MG Tab.EC PO SCH (07:36)
[2018-12-03] MEDS: Magnesium Oxide 400 MG Tab PO SCH ×2 (07:36→20:51)
[2018-12-03] MEDS: FOLIC ACID 1 MG PO SCH ×3 (07:36→20:51)
[2018-12-03] MEDS: Omeprazole 20 MG Cap.CR PO SCH (07:36)
[2018-12-03] MEDS: MORPHINE 30 MG PO SCH ×2 (07:37→20:50)
[2018-12-03] MEDS: Cyanocobalamin (Vitamin B12) 1,000 MCG Tab PO SCH (07:37)
[2018-12-03] MEDS: LYRICA PO SCH ×3 (07:37→20:50)
[2018-12-03] MEDS: Thiamine 100 MG Tab PO SCH (11:46)
[2018-12-03] MEDS: AMMONIUM LACTATE 12% TOP SCH ×2 (11:47→20:50)
[2018-12-03] MEDS: CYCLOBENZAPRINE 10 MG PO PRN ×2 (11:52→20:51)
[2018-12-03] MEDS: HYDROXYZINE HCL 25 MG PO PRN (20:51)
[2018-12-03] MEDS: TOPIRAMATE 25 MG PO SCH (20:52)
[2018-12-03] MEDS: TRAZODONE 100 MG PO SCH (20:52)
[2018-12-04] MEDS: Magnesium Oxide 400 MG Tab PO SCH ×2 (08:52→22:03)
[2018-12-04] MEDS: Omeprazole 20 MG Cap.CR PO SCH (08:52)
[2018-12-04] MEDS: Aspirin 325 MG Tab.EC PO SCH (08:52)
[2018-12-04] MEDS: Multivitamins with Iron/Calcium/Folic Acid/Minerals Tab PO SCH (08:53)
[2018-12-04] MEDS: Cholecalciferol (Vitamin D3) 1,000 Unit Tab PO SCH (08:53)
[2018-12-04] MEDS: MORPHINE 30 MG PO SCH ×2 (08:53→21:55)
[2018-12-04] MEDS: Cyanocobalamin (Vitamin B12) 1,000 MCG Tab PO SCH (08:53)
[2018-12-04] MEDS: OXCARBAZEPINE 600 MG PO SCH ×2 (08:54→21:52)
[2018-12-04] MEDS: LYRICA PO SCH ×3 (08:54→21:57)
[2018-12-04] MEDS: POTASSIUM CHLORIDE 10 MEQ PO SCH (08:55)
[2018-12-04] MEDS: BUPROPION HCL 300 MG PO SCH (08:55)
[2018-12-04] MEDS: METFORMIN 500 MG PO SCH ×3 (08:55→17:45)
[2018-12-04] MEDS: FUROSEMIDE 40 MG PO SCH ×2 (08:56→11:42)
[2018-12-04] MEDS: FOLIC ACID 1 MG PO SCH ×3 (08:56→21:52)
[2018-12-04] MEDS: AMMONIUM LACTATE 12% TOP SCH ×2 (11:42→21:46)
[2018-12-04] MEDS: Thiamine 100 MG Tab PO SCH (11:42)
[2018-12-04] MEDS: CYCLOBENZAPRINE 10 MG PO PRN ×2 (11:43→21:49)
[2018-12-04] MEDS: HYDROXYZINE HCL 25 MG PO PRN (21:47)
[2018-12-04] MEDS: TOPIRAMATE 50 MG PO SCH (21:50)
[2018-12-04] MEDS: TRAZODONE 100 MG PO SCH (21:59)
[2018-12-04] MEDS: TRAZODONE 100 MG PO PRN (22:01)
[2018-12-05] MEDS: LYRICA PO SCH ×3 (09:10→20:21)
[2018-12-05] MEDS: MORPHINE 30 MG PO SCH ×2 (09:11→20:19)
[2018-12-05] MEDS: FOLIC ACID 1 MG PO SCH ×3 (09:11→20:18)
[2018-12-05] MEDS: BUPROPION HCL 300 MG PO SCH (09:12)
[2018-12-05] MEDS: FUROSEMIDE 40 MG PO SCH ×2 (09:12→11:50)
[2018-12-05] MEDS: POTASSIUM CHLORIDE 10 MEQ PO SCH (09:12)
[2018-12-05] MEDS: METFORMIN 500 MG PO SCH ×3 (09:13→18:05)
[2018-12-05] MEDS: OXCARBAZEPINE 600 MG PO SCH ×2 (09:13→20:14)
[2018-12-05] MEDS: Omeprazole 20 MG Cap.CR PO SCH (09:14)
[2018-12-05] MEDS: Magnesium Oxide 400 MG Tab PO SCH ×2 (09:14→20:13)
[2018-12-05] MEDS: Multivitamins with Iron/Calcium/Folic Acid/Minerals Tab PO SCH (09:14)
[2018-12-05] MEDS: Cyanocobalamin (Vitamin B12) 1,000 MCG Tab PO SCH (09:14)
[2018-12-05] MEDS: Cholecalciferol (Vitamin D3) 1,000 Unit Tab PO SCH (09:14)
[2018-12-05] MEDS: Aspirin 325 MG Tab.EC PO SCH (09:15)
[2018-12-05] MEDS: AMMONIUM LACTATE 12% TOP SCH ×2 (09:15→20:18)
[2018-12-05] MEDS: Thiamine 100 MG Tab PO SCH (11:50)
[2018-12-05] MEDS: CYCLOBENZAPRINE 10 MG PO PRN ×2 (11:52→20:23)
[2018-12-05] MEDS: Ibuprofen 200 MG Tab PO PRN (11:54)
[2018-12-05] MEDS: Acetaminophen 500 MG Tab PO PRN (16:55)
[2018-12-05] MEDS: TOPIRAMATE 50 MG PO SCH (20:16)
[2018-12-05] MEDS: TRAZODONE 100 MG PO SCH (20:17)
[2018-12-05] MEDS: HYDROXYZINE HCL 25 MG PO PRN (20:24)
[2018-12-05] MEDS: TRAZODONE 100 MG PO PRN (21:56)
[2018-12-06] MEDS: POTASSIUM CHLORIDE 10 MEQ PO SCH (08:26)
[2018-12-06] MEDS: FUROSEMIDE 40 MG PO SCH ×2 (08:26→11:16)
[2018-12-06] MEDS: FOLIC ACID 1 MG PO SCH ×3 (08:26→20:48)
[2018-12-06] MEDS: OXCARBAZEPINE 600 MG PO SCH ×2 (08:27→20:50)
[2018-12-06] MEDS: BUPROPION HCL 300 MG PO SCH (08:27)
[2018-12-06] MEDS: METFORMIN 500 MG PO SCH ×3 (08:27→17:53)
[2018-12-06] MEDS: Cyanocobalamin (Vitamin B12) 1,000 MCG Tab PO SCH (08:28)
[2018-12-06] MEDS: Multivitamins with Iron/Calcium/Folic Acid/Minerals Tab PO SCH (08:28)
[2018-12-06] MEDS: Cholecalciferol (Vitamin D3) 1,000 Unit Tab PO SCH (08:28)
[2018-12-06] MEDS: Aspirin 325 MG Tab.EC PO SCH (08:28)
[2018-12-06] MEDS: Omeprazole 20 MG Cap.CR PO SCH (08:28)
[2018-12-06] MEDS: Magnesium Oxide 400 MG Tab PO SCH ×2 (08:28→20:48)
[2018-12-06] MEDS: MORPHINE 30 MG PO SCH ×2 (08:29→20:50)
[2018-12-06] MEDS: LYRICA PO SCH ×3 (08:29→20:50)
[2018-12-06] MEDS: AMMONIUM LACTATE 12% TOP SCH ×2 (11:15→20:48)
[2018-12-06] MEDS: Ibuprofen 200 MG Tab PO PRN (11:15)
[2018-12-06] MEDS: Thiamine 100 MG Tab PO SCH (11:19)
[2018-12-06] MEDS: TRAZODONE 100 MG PO SCH (20:49)
[2018-12-06] MEDS: HYDROXYZINE HCL 25 MG PO PRN (20:49)
[2018-12-06] MEDS: CYCLOBENZAPRINE 10 MG PO PRN (20:51)
[2018-12-06] MEDS: TOPIRAMATE 50 MG PO SCH (20:52)
[2018-12-06] MEDS: Calcium Carbonate 750 MG Tab.Chew PO PRN (20:53)
[2018-12-07] MEDS: BUPROPION HCL 300 MG PO SCH (08:48)
[2018-12-07] MEDS: Aspirin 325 MG Tab.EC PO SCH (08:49)
[2018-12-07] MEDS: FOLIC ACID 1 MG PO SCH ×3 (08:49→23:05)
[2018-12-07] MEDS: METFORMIN 500 MG PO SCH ×3 (08:49→17:29)
[2018-12-07] MEDS: FUROSEMIDE 40 MG PO SCH ×2 (08:52→11:54)
[2018-12-07] MEDS: Magnesium Oxide 400 MG Tab PO SCH ×2 (08:52→23:02)
[2018-12-07] MEDS: Omeprazole 20 MG Cap.CR PO SCH (08:53)
[2018-12-07] MEDS: OXCARBAZEPINE 600 MG PO SCH ×2 (08:54→23:05)
[2018-12-07] MEDS: POTASSIUM CHLORIDE 10 MEQ PO SCH (08:54)
[2018-12-07] MEDS: Cyanocobalamin (Vitamin B12) 1,000 MCG Tab PO SCH (08:56)
[2018-12-07] MEDS: Multivitamins with Iron/Calcium/Folic Acid/Minerals Tab PO SCH (08:56)
[2018-12-07] MEDS: Cholecalciferol (Vitamin D3) 1,000 Unit Tab PO SCH (08:56)
[2018-12-07] MEDS: MORPHINE 30 MG PO SCH ×2 (08:57→23:04)
[2018-12-07] MEDS: LYRICA PO SCH ×3 (08:58→23:03)
[2018-12-07] MEDS: HYDROXYZINE HCL 25 MG PO PRN ×3 (09:00→23:07)
[2018-12-07] MEDS: AMMONIUM LACTATE 12% TOP SCH ×2 (11:50→23:11)
[2018-12-07] MEDS: Thiamine 100 MG Tab PO SCH (11:51)
[2018-12-07] MEDS: Acetaminophen 500 MG Tab PO PRN (16:28)
[2018-12-07] MEDS: TOPIRAMATE 50 MG PO SCH (23:01)
[2018-12-07] MEDS: TRAZODONE 100 MG PO SCH (23:03)
[2018-12-07] MEDS: CYCLOBENZAPRINE 10 MG PO PRN (23:07)
[2018-12-08] MEDS: POTASSIUM CHLORIDE 10 MEQ PO SCH (08:23)
[2018-12-08] MEDS: FUROSEMIDE 40 MG PO SCH ×2 (08:23→11:52)
[2018-12-08] MEDS: BUPROPION HCL 300 MG PO SCH (08:23)
[2018-12-08] MEDS: LYRICA PO SCH ×3 (08:24→20:55)
[2018-12-08] MEDS: FOLIC ACID 1 MG PO SCH ×3 (08:24→20:57)
[2018-12-08] MEDS: OXCARBAZEPINE 600 MG PO SCH ×2 (08:24→20:57)
[2018-12-08] MEDS: METFORMIN 500 MG PO SCH ×3 (08:24→18:01)
[2018-12-08] MEDS: Cyanocobalamin (Vitamin B12) 1,000 MCG Tab PO SCH (08:25)
[2018-12-08] MEDS: Aspirin 325 MG Tab.EC PO SCH (08:25)
[2018-12-08] MEDS: MORPHINE 30 MG PO SCH ×2 (08:25→20:55)
[2018-12-08] MEDS: Magnesium Oxide 400 MG Tab PO SCH ×2 (08:26→20:55)
[2018-12-08] MEDS: Multivitamins with Iron/Calcium/Folic Acid/Minerals Tab PO SCH (08:26)
[2018-12-08] MEDS: Cholecalciferol (Vitamin D3) 1,000 Unit Tab PO SCH (08:26)
[2018-12-08] MEDS: Omeprazole 20 MG Cap.CR PO SCH (08:27)
[2018-12-08] MEDS: AMMONIUM LACTATE 12% TOP SCH ×2 (11:53→20:58)
[2018-12-08] MEDS: Thiamine 100 MG Tab PO SCH (11:53)
[2018-12-08] MEDS: HYDROXYZINE HCL 25 MG PO PRN (18:02)
--- NOTE | 2018-12-08 20:52 | PN ---
Progress Note for GEMMA NASH Date: 12/08/2018 Room #: VM.201 HISTORY OF PRESENT ILLNESS: This is a 47-year-old seen today for followup on swing bed with goals for weight loss and to stay away from smoking, so she can have gastric bypass surgery. Her weight is down to 183 kg. She is down overall from another 6 pounds from last week and 13 pounds from her starting week weight. Unfortunately, she had gained some weight on initial admission. Had not been doing much activity. Now she is walking 7 laps. She did walk all the way to the clinic for a psychiatry appointment. She states her knees hurt for 2 days after and she was quite upset about that. It was brought to my attention that she had been regularly using Ativan at bedtime. Ativan she has been off and on for years, was only started due to severe anxiety with the quitting of smoking and living in swing bed. Discussed with Gemma. She slept okay without it last night and it will only be there as needed for emergency. She understands the hydroxyzine is more for her anxiety now. She has multiple followups upcoming including another sleep clinic appointment. She did have a biopsy last week by Gynecology with no abnormalities found. They decided she did not need any further testing on the ovarian cyst. She also had a negative Pap. She is following in the Weight Loss Clinic. She recently had an increase on her Topamax. She is tolerating that. She still continues to have the shaking like tremor type movements, but no reported seizures. She does not have any Neurology followup until January. She is not bothered by any breathing problems. She is on increasing doses of Zoloft per Psychiatry. Has had mildly low sodium at 129. OBJECTIVE: Vital Signs: Her weight again is 183.2 kg, temperature 97.5, pulse of 62, blood pressure 131/55, respiratory rate 18, O2 96 on room air. General: She is in no acute distress. Heart: Regular rate and rhythm. S1 and S2 without murmur. Lungs: Lung sounds are clear to auscultation bilaterally without crackles or wheezes. Extremities: Warm and dry. No edema. Mental Status: Alert and orientated x3. She is polite. She is cooperative. ASSESSMENT: 1. Morbid obesity with plans for gastric bypass surgery. I again instructed her the importance of nicotine cessation. 2. Hyponatremia. We will repeat a sodium next week, especially need close monitoring with increasing her SSRIs. 3. Anxiety and depression. She is following with Psych. She will stop using regular Ativan at bedtime. It is p.r.n. only for severe agitation and anxiety. She will rely on her other bedtime medications. Her psychiatrist is also working on counseling for her. 4. Prediabetes. 5. Nocturnal hypoxia and sleep apnea. She is following in the Sleep Clinic. 6. Smoking. She has been off the nicotine and smoking since 10/19. PLAN: The patient will continue swing bed cares for help with ADLs and improving her activity levels. We will get her down to cardiac rehab. When that is not in use to possibly use the hand bike and maybe even the NuStep. She will work up to goals of at least 8 laps daily. We will continue the diet. She is to have multiple nutrition followups down in [place] including a followup with the weight loss provider next week. Some considerations could also include getting her off her Lyrica or at least decreasing the dose to aid with weight loss. This could increase her anxiety, so I will hold off for now. MKA: 12/08/2018 20:13:35 MODL: 12/08/2018 20:44:27 /[id number]
[2018-12-08] MEDS: TOPIRAMATE 50 MG PO SCH (20:54)
[2018-12-08] MEDS: CYCLOBENZAPRINE 10 MG PO PRN (20:57)
[2018-12-08] MEDS: TRAZODONE 100 MG PO SCH (21:03)
[2018-12-09] MEDS: POTASSIUM CHLORIDE 10 MEQ PO SCH (08:07)
[2018-12-09] MEDS: FOLIC ACID 1 MG PO SCH ×3 (08:07→20:56)
[2018-12-09] MEDS: FUROSEMIDE 40 MG PO SCH ×2 (08:08→13:48)
[2018-12-09] MEDS: OXCARBAZEPINE 600 MG PO SCH ×2 (08:08→20:59)
[2018-12-09] MEDS: BUPROPION HCL 300 MG PO SCH (08:09)
[2018-12-09] MEDS: LYRICA PO SCH ×3 (08:09→20:55)
[2018-12-09] MEDS: MORPHINE 30 MG PO SCH ×2 (08:09→20:55)
[2018-12-09] MEDS: METFORMIN 500 MG PO SCH ×3 (08:09→17:47)
[2018-12-09] MEDS: Magnesium Oxide 400 MG Tab PO SCH (08:10)
[2018-12-09] MEDS: Aspirin 325 MG Tab.EC PO SCH (08:10)
[2018-12-09] MEDS: Omeprazole 20 MG Cap.CR PO SCH (08:10)
[2018-12-09] MEDS: Multivitamins with Iron/Calcium/Folic Acid/Minerals Tab PO SCH (08:11)
[2018-12-09] MEDS: Cholecalciferol (Vitamin D3) 1,000 Unit Tab PO SCH (08:11)
[2018-12-09] MEDS: Cyanocobalamin (Vitamin B12) 1,000 MCG Tab PO SCH (08:11)
[2018-12-09] MEDS: AMMONIUM LACTATE 12% TOP SCH ×2 (09:02→20:59)
[2018-12-09] MEDS: Thiamine 100 MG Tab PO SCH (13:18)
[2018-12-09] MEDS: Ibuprofen 200 MG Tab PO PRN (13:26)
[2018-12-09] MEDS: CYCLOBENZAPRINE 10 MG PO PRN (20:57)
[2018-12-09] MEDS: TOPIRAMATE 50 MG PO SCH (20:57)
[2018-12-09] MEDS: HYDROXYZINE HCL 25 MG PO PRN (20:57)
[2018-12-09] MEDS: TRAZODONE 100 MG PO SCH (20:58)
[2018-12-09] MEDS: STOOL SOFTENER PO SCH (20:58)
[2018-12-09] MEDS: MAGNESIUM 400 MG PO SCH (20:58)
[2018-12-09] MEDS: SENNA PO SCH (20:58)
[2018-12-10] MEDS: METFORMIN 500 MG PO SCH ×3 (08:08→17:48)
[2018-12-10] MEDS: OXCARBAZEPINE 600 MG PO SCH ×2 (08:09→20:49)
[2018-12-10] MEDS: SENNA PO SCH ×2 (08:09→20:48)
[2018-12-10] MEDS: STOOL SOFTENER PO SCH ×2 (08:09→20:48)
[2018-12-10] MEDS: MAGNESIUM 400 MG PO SCH ×2 (08:09→20:47)
[2018-12-10] MEDS: VITAMIN D3 2000 UNIT PO SCH (08:10)
[2018-12-10] MEDS: FOLIC ACID 1 MG PO SCH ×3 (08:10→20:46)
[2018-12-10] MEDS: CYANOCOBALAMIN PO SCH (08:10)
[2018-12-10] MEDS: FUROSEMIDE 40 MG PO SCH ×2 (08:11→11:45)
[2018-12-10] MEDS: OMEPRAZOLE 20 MG PO SCH (08:11)
[2018-12-10] MEDS: BUPROPION HCL 300 MG PO SCH (08:11)
[2018-12-10] MEDS: POTASSIUM CHLORIDE 10 MEQ PO SCH (08:12)
[2018-12-10] MEDS: MORPHINE 30 MG PO SCH ×2 (08:13→20:48)
[2018-12-10] MEDS: LYRICA PO SCH ×3 (08:14→20:50)
[2018-12-10] MEDS: Aspirin 325 MG Tab.EC PO SCH (08:16)
[2018-12-10] MEDS: Multivitamins with Iron/Calcium/Folic Acid/Minerals Tab PO SCH (08:16)
[2018-12-10] MEDS: Calcium Carbonate 750 MG Tab.Chew PO PRN (09:48)
[2018-12-10] MEDS: AMMONIUM LACTATE 12% TOP SCH ×2 (09:48→20:46)
[2018-12-10] MEDS: THIAMINE PO SCH (11:45)
[2018-12-10] MEDS: Ibuprofen 200 MG Tab PO PRN (11:48)
[2018-12-10] MEDS: HYDROXYZINE HCL 25 MG PO PRN ×2 (15:16→20:51)
[2018-12-10] MEDS: TOPIRAMATE 50 MG PO SCH (20:49)
[2018-12-10] MEDS: TRAZODONE 100 MG PO SCH (20:50)
[2018-12-11] MEDS: OXCARBAZEPINE 600 MG PO SCH ×2 (07:55→20:56)
[2018-12-11] MEDS: FOLIC ACID 1 MG PO SCH ×3 (07:55→20:57)
[2018-12-11] MEDS: MAGNESIUM 400 MG PO SCH ×2 (07:55→20:57)
[2018-12-11] MEDS: MORPHINE 30 MG PO SCH ×2 (07:57→20:55)
[2018-12-11] MEDS: LYRICA PO SCH ×3 (07:57→20:55)
[2018-12-11] MEDS: METFORMIN 500 MG PO SCH ×3 (07:58→17:20)
[2018-12-11] MEDS: FUROSEMIDE 40 MG PO SCH ×2 (07:59→11:25)
[2018-12-11] MEDS: POTASSIUM CHLORIDE 10 MEQ PO SCH (08:00)
[2018-12-11] MEDS: CYANOCOBALAMIN PO SCH (08:01)
[2018-12-11] MEDS: VITAMIN D3 2000 UNIT PO SCH (08:01)
[2018-12-11] MEDS: STOOL SOFTENER PO SCH ×2 (08:02→20:57)
[2018-12-11] MEDS: SENNA PO SCH ×2 (08:02→20:57)
[2018-12-11] MEDS: Aspirin 325 MG Tab.EC PO SCH (08:03)
[2018-12-11] MEDS: BUPROPION HCL 300 MG PO SCH (08:03)
[2018-12-11] MEDS: Multivitamins with Iron/Calcium/Folic Acid/Minerals Tab PO SCH (08:04)
[2018-12-11] MEDS: OMEPRAZOLE 20 MG PO SCH (08:04)
[2018-12-11] MEDS: HYDROXYZINE HCL 25 MG PO PRN ×2 (08:05→20:56)
[2018-12-11] MEDS: CYCLOBENZAPRINE 10 MG PO PRN ×2 (08:05→21:04)
[2018-12-11] MEDS: AMMONIUM LACTATE 12% TOP SCH ×3 (08:42→20:54)
[2018-12-11] MEDS: THIAMINE PO SCH (11:26)
[2018-12-11] MEDS: TOPIRAMATE 50 MG PO SCH (20:55)
[2018-12-11] MEDS: TRAZODONE 100 MG PO SCH (20:55)
[2018-12-12] MEDS: LYRICA PO SCH ×3 (07:59→20:31)
[2018-12-12] MEDS: BUPROPION HCL 300 MG PO SCH (07:59)
[2018-12-12] MEDS: MORPHINE 30 MG PO SCH ×2 (07:59→20:31)
[2018-12-12] MEDS: VITAMIN D3 2000 UNIT PO SCH (08:00)
[2018-12-12] MEDS: POTASSIUM CHLORIDE 10 MEQ PO SCH (08:00)
[2018-12-12] MEDS: CYANOCOBALAMIN PO SCH (08:00)
[2018-12-12] MEDS: METFORMIN 500 MG PO SCH ×3 (08:00→17:12)
[2018-12-12] MEDS: FUROSEMIDE 40 MG PO SCH ×2 (08:01→11:13)
[2018-12-12] MEDS: OXCARBAZEPINE 600 MG PO SCH ×2 (08:01→20:30)
[2018-12-12] MEDS: FOLIC ACID 1 MG PO SCH ×3 (08:01→20:31)
[2018-12-12] MEDS: SENNA PO SCH ×2 (08:02→20:32)
[2018-12-12] MEDS: MAGNESIUM 400 MG PO SCH ×2 (08:02→20:30)
[2018-12-12] MEDS: Multivitamins with Iron/Calcium/Folic Acid/Minerals Tab PO SCH (08:02)
[2018-12-12] MEDS: STOOL SOFTENER PO SCH ×2 (08:02→20:32)
[2018-12-12] MEDS: HYDROXYZINE HCL 25 MG PO PRN ×2 (08:03→20:30)
[2018-12-12] MEDS: OMEPRAZOLE 20 MG PO SCH (08:03)
[2018-12-12] MEDS: Aspirin 325 MG Tab.EC PO SCH (08:03)
[2018-12-12] MEDS: CYCLOBENZAPRINE 10 MG PO PRN ×2 (08:03→20:31)
[2018-12-12] MEDS: AMMONIUM LACTATE 12% TOP SCH ×2 (10:54→20:31)
[2018-12-12] MEDS: THIAMINE PO SCH (11:13)
[2018-12-12] MEDS: Ibuprofen 200 MG Tab PO PRN (12:56)
[2018-12-12] MEDS: TRAZODONE 100 MG PO SCH (20:30)
[2018-12-12] MEDS: TOPIRAMATE 50 MG PO SCH (20:30)
[2018-12-13] MEDS: POTASSIUM CHLORIDE 10 MEQ PO SCH (08:06)
[2018-12-13] MEDS: VITAMIN D3 2000 UNIT PO SCH (08:06)
[2018-12-13] MEDS: CYANOCOBALAMIN PO SCH (08:07)
[2018-12-13] MEDS: BUPROPION HCL 300 MG PO SCH (08:07)
[2018-12-13] MEDS: OMEPRAZOLE 20 MG PO SCH (08:07)
[2018-12-13] MEDS: Aspirin 325 MG Tab.EC PO SCH (08:08)
[2018-12-13] MEDS: Multivitamins with Iron/Calcium/Folic Acid/Minerals Tab PO SCH (08:08)
[2018-12-13] MEDS: CYCLOBENZAPRINE 10 MG PO PRN ×2 (08:08→20:01)
[2018-12-13] MEDS: LYRICA PO SCH ×3 (08:08→20:03)
[2018-12-13] MEDS: MORPHINE 30 MG PO SCH ×2 (08:08→20:03)
[2018-12-13] MEDS: MAGNESIUM 400 MG PO SCH (08:09)
[2018-12-13] MEDS: METFORMIN 500 MG PO SCH ×3 (08:09→17:23)
[2018-12-13] MEDS: HYDROXYZINE HCL 25 MG PO PRN ×2 (08:10→20:01)
[2018-12-13] MEDS: FOLIC ACID 1 MG PO SCH ×3 (08:10→20:02)
[2018-12-13] MEDS: OXCARBAZEPINE 600 MG PO SCH ×2 (08:10→20:02)
[2018-12-13] MEDS: STOOL SOFTENER PO SCH ×2 (08:11→20:06)
[2018-12-13] MEDS: FUROSEMIDE 40 MG PO SCH ×2 (08:11→11:30)
[2018-12-13] MEDS: SENNA PO SCH ×2 (08:11→20:06)
[2018-12-13] MEDS: AMMONIUM LACTATE 12% TOP SCH ×2 (09:53→20:03)
[2018-12-13] MEDS: THIAMINE PO SCH (11:30)
[2018-12-13] MEDS: Ibuprofen 200 MG Tab PO PRN (11:31)
[2018-12-13] MEDS: TOPIRAMATE 50 MG PO SCH (20:01)
[2018-12-13] MEDS: TRAZODONE 100 MG PO SCH (20:02)
[2018-12-13] MEDS: Magnesium Oxide 400 MG Tab PO SCH (20:03)
[2018-12-14] MEDS: Aspirin 325 MG Tab.EC PO SCH (08:28)
[2018-12-14] MEDS: Magnesium Oxide 400 MG Tab PO SCH ×2 (08:28→20:22)
[2018-12-14] MEDS: METFORMIN 500 MG PO SCH ×3 (08:28→17:48)
[2018-12-14] MEDS: Multivitamins with Iron/Calcium/Folic Acid/Minerals Tab PO SCH (08:28)
[2018-12-14] MEDS: VITAMIN D3 2000 UNIT PO SCH (08:29)
[2018-12-14] MEDS: POTASSIUM CHLORIDE 10 MEQ PO SCH (08:29)
[2018-12-14] MEDS: FUROSEMIDE 40 MG PO SCH ×2 (08:29→09:00)
[2018-12-14] MEDS: BUPROPION HCL 300 MG PO SCH (08:29)
[2018-12-14] MEDS: CYANOCOBALAMIN PO SCH (08:30)
[2018-12-14] MEDS: CYCLOBENZAPRINE 10 MG PO PRN (08:30)
[2018-12-14] MEDS: HYDROXYZINE HCL 25 MG PO PRN ×2 (08:30→20:29)
[2018-12-14] MEDS: SENNA PO SCH ×2 (08:31→20:23)
[2018-12-14] MEDS: STOOL SOFTENER PO SCH ×2 (08:31→20:23)
[2018-12-14] MEDS: OXCARBAZEPINE 600 MG PO SCH ×2 (08:31→20:25)
[2018-12-14] MEDS: FOLIC ACID 1 MG PO SCH ×3 (08:31→20:21)
[2018-12-14] MEDS: OMEPRAZOLE 20 MG PO SCH (08:32)
[2018-12-14] MEDS: LYRICA PO SCH ×3 (08:32→20:27)
[2018-12-14] MEDS: MORPHINE 30 MG PO SCH ×2 (08:32→20:22)
[2018-12-14] MEDS: THIAMINE PO SCH (09:00)
[2018-12-14] MEDS: AMMONIUM LACTATE 12% TOP SCH ×2 (11:10→20:20)
[2018-12-14] MEDS: TRAZODONE 100 MG PO SCH (20:26)
[2018-12-14] MEDS: TOPIRAMATE 50 MG PO SCH (20:26)
[2018-12-15] MEDS: POTASSIUM CHLORIDE 10 MEQ PO SCH (08:21)
[2018-12-15] MEDS: STOOL SOFTENER PO SCH ×2 (08:21→20:40)
[2018-12-15] MEDS: METFORMIN 500 MG PO SCH ×3 (08:21→18:21)
[2018-12-15] MEDS: Multivitamins with Iron/Calcium/Folic Acid/Minerals Tab PO SCH (08:21)
[2018-12-15] MEDS: SENNA PO SCH ×2 (08:21→20:40)
[2018-12-15] MEDS: Aspirin 325 MG Tab.EC PO SCH (08:21)
[2018-12-15] MEDS: VITAMIN D3 2000 UNIT PO SCH (08:22)
[2018-12-15] MEDS: CYANOCOBALAMIN PO SCH (08:22)
[2018-12-15] MEDS: FUROSEMIDE 40 MG PO SCH ×2 (08:22→11:57)
[2018-12-15] MEDS: FOLIC ACID 1 MG PO SCH ×3 (08:23→20:41)
[2018-12-15] MEDS: OXCARBAZEPINE 600 MG PO SCH ×2 (08:23→20:43)
[2018-12-15] MEDS: CYCLOBENZAPRINE 10 MG PO PRN ×2 (08:24→20:45)
[2018-12-15] MEDS: HYDROXYZINE HCL 25 MG PO PRN ×2 (08:25→20:45)
[2018-12-15] MEDS: MORPHINE 30 MG PO SCH ×2 (08:25→20:38)
[2018-12-15] MEDS: LYRICA PO SCH ×3 (08:25→20:44)
[2018-12-15] MEDS: OMEPRAZOLE 20 MG PO SCH (08:25)
[2018-12-15] MEDS: BUPROPION HCL 300 MG PO SCH (08:26)
[2018-12-15] MEDS: Magnesium Oxide 400 MG Tab PO SCH ×2 (08:32→20:38)
[2018-12-15] MEDS: AMMONIUM LACTATE 12% TOP SCH ×2 (11:56→20:39)
[2018-12-15] MEDS: THIAMINE PO SCH (11:58)
[2018-12-15] MEDS: TOPIRAMATE 50 MG PO SCH (20:42)
[2018-12-15] MEDS: TRAZODONE 100 MG PO SCH (20:43)
[2018-12-16] MEDS: MORPHINE 30 MG PO SCH ×2 (08:19→19:12)
[2018-12-16] MEDS: LYRICA PO SCH ×3 (08:19→21:06)
[2018-12-16] MEDS: Magnesium Oxide 400 MG Tab PO SCH ×3 (08:21→19:12)
[2018-12-16] MEDS: Multivitamins with Iron/Calcium/Folic Acid/Minerals Tab PO SCH (08:21)
[2018-12-16] MEDS: Aspirin 325 MG Tab.EC PO SCH (08:22)
[2018-12-16] MEDS: FUROSEMIDE 40 MG PO SCH ×2 (08:22→12:22)
[2018-12-16] MEDS: METFORMIN 500 MG PO SCH ×3 (08:22→19:12)
[2018-12-16] MEDS: OXCARBAZEPINE 600 MG PO SCH ×3 (08:23→21:06)
[2018-12-16] MEDS: POTASSIUM CHLORIDE 10 MEQ PO SCH (08:23)
[2018-12-16] MEDS: FOLIC ACID 1 MG PO SCH ×4 (08:23→19:12)
[2018-12-16] MEDS: VITAMIN D3 2000 UNIT PO SCH (08:23)
[2018-12-16] MEDS: STOOL SOFTENER PO SCH ×2 (08:24→19:12)
[2018-12-16] MEDS: CYANOCOBALAMIN PO SCH (08:24)
[2018-12-16] MEDS: SENNA PO SCH ×2 (08:24→19:12)
[2018-12-16] MEDS: BUPROPION HCL 300 MG PO SCH (08:25)
[2018-12-16] MEDS: OMEPRAZOLE 20 MG PO SCH (08:26)
[2018-12-16] MEDS: THIAMINE PO SCH (12:23)
[2018-12-16] MEDS: AMMONIUM LACTATE 12% TOP SCH ×2 (12:23→19:12)
[2018-12-16] MEDS: CYCLOBENZAPRINE 10 MG PO PRN (12:26)
[2018-12-16] MEDS: TOPIRAMATE 50 MG PO SCH (19:12)
[2018-12-16] MEDS: TRAZODONE 100 MG PO SCH (21:06)
[2018-12-17] MEDS: Magnesium Oxide 400 MG Tab PO SCH ×2 (08:40→20:39)
[2018-12-17] MEDS: Multivitamins with Iron/Calcium/Folic Acid/Minerals Tab PO SCH (08:40)
[2018-12-17] MEDS: Aspirin 325 MG Tab.EC PO SCH (08:40)
[2018-12-17] MEDS: CYANOCOBALAMIN PO SCH (08:41)
[2018-12-17] MEDS: STOOL SOFTENER PO SCH ×2 (08:41→20:42)
[2018-12-17] MEDS: SENNA PO SCH ×2 (08:41→20:42)
[2018-12-17] MEDS: VITAMIN D3 2000 UNIT PO SCH (08:41)
[2018-12-17] MEDS: METFORMIN 500 MG PO SCH ×3 (08:42→18:42)
[2018-12-17] MEDS: FOLIC ACID 1 MG PO SCH ×3 (08:42→20:41)
[2018-12-17] MEDS: BUPROPION HCL 300 MG PO SCH (08:42)
[2018-12-17] MEDS: OXCARBAZEPINE 600 MG PO SCH ×2 (08:42→20:47)
[2018-12-17] MEDS: POTASSIUM CHLORIDE 10 MEQ PO SCH (08:43)
[2018-12-17] MEDS: LYRICA PO SCH ×3 (08:43→20:44)
[2018-12-17] MEDS: MORPHINE 30 MG PO SCH ×2 (08:43→20:39)
[2018-12-17] MEDS: FUROSEMIDE 40 MG PO SCH ×2 (08:44→13:23)
[2018-12-17] MEDS: OMEPRAZOLE 20 MG PO SCH (08:44)
[2018-12-17] MEDS: THIAMINE PO SCH (13:23)
[2018-12-17] MEDS: AMMONIUM LACTATE 12% TOP SCH ×2 (13:25→20:38)
[2018-12-17] MEDS: CYCLOBENZAPRINE 10 MG PO PRN (13:27)
[2018-12-17] MEDS: HYDROXYZINE HCL 25 MG PO PRN ×2 (15:54→20:48)
--- NOTE | 2018-12-17 17:15 | PN ---
Progress Note for GEMMA NASH Date: 12/17/2018 Room #: VM.201 SUBJECTIVE: A 48-year-old, seen today for swing bed rounds and to discuss ongoing cares. The patient appears to be in good spirits. She just got back from a sleep test yesterday, and they tried out some new mask, but she does not have it yet and the results are not back. She, otherwise, did not have to be discharged this time per nursing for that sleep test. She is quite excited because she has lost more weight and is now under 400 pounds. She is tolerating the Topamax from the weight-loss doctor. She has seen the real estate assessor, and recommendations were made to cut back on her coffee. OBJECTIVE: Vital Signs: Today her temperature is 98, her blood pressure is 122/70, respiratory rate 18, and O2 of 98% on room air. Weight 180.9 kg. General: She is in no acute distress, otherwise. ASSESSMENT: 1. Hyponatremia, worsened down to 127, probably due to her SSRIs, last checked on 12/14. I will recheck it on 12/28 and add a serum and urine osmolality. I will hold off on a urine sodium because she is on diuretics. She is asymptomatic from this. 2. Morbid obesity with plans for a gastric bypass. She is now off smoking almost 2 months, and her nicotine patch is well. 3. Obstructive sleep apnea, working on getting the appropriate treatments on that. 4. Anxiety and depression. She is following with psych. She was utilizing more Ativan at bedtime for sleep. Because she is on chronic narcotics, we had recommended that she stop relying on this and in fact she has not been using it on a nightly basis, last used on 12/15, otherwise. 5. Pre-diabetes. 6. Smoking. Again off nicotine patches since 10/19. 7. Chronic pain I did get a note from her weight loss doctor about weaning lyrica and other weight gaining meds I will discuss going to 100, 100, 200 daily dosing with her. PLAN: At this point, the patient will continue on swing bed cares for continued weight loss efforts. We have increased her activity. She is even getting down to cardiac rehab to utilize the machines. She will be coming over to the clinic later today to get her foot checked by the chief program officer. She is aware I will be off next week, but we will follow up with her at the week of 12/28 when I repeat her lab work. MKA: 12/17/2018 16:53:44 MODL: 12/17/2018 17:09:42 /[id number]
[2018-12-17] MEDS: TOPIRAMATE 50 MG PO SCH (20:42)
[2018-12-17] MEDS: LORAZEPAM PO PRN (20:45)
[2018-12-17] MEDS: TRAZODONE 100 MG PO SCH (20:46)
[2018-12-18] MEDS: BUPROPION HCL 300 MG PO SCH (09:19)
[2018-12-18] MEDS: OXCARBAZEPINE 600 MG PO SCH ×2 (09:20→23:16)
[2018-12-18] MEDS: POTASSIUM CHLORIDE 10 MEQ PO SCH (09:21)
[2018-12-18] MEDS: FOLIC ACID 1 MG PO SCH ×3 (09:21→23:13)
[2018-12-18] MEDS: FUROSEMIDE 40 MG PO SCH ×2 (09:21→11:43)
[2018-12-18] MEDS: SENNA PO SCH ×2 (09:22→23:17)
[2018-12-18] MEDS: VITAMIN D3 2000 UNIT PO SCH (09:22)
[2018-12-18] MEDS: STOOL SOFTENER PO SCH ×2 (09:22→23:17)
[2018-12-18] MEDS: METFORMIN 500 MG PO SCH ×3 (09:22→17:36)
[2018-12-18] MEDS: CYANOCOBALAMIN PO SCH (09:23)
[2018-12-18] MEDS: Multivitamins with Iron/Calcium/Folic Acid/Minerals Tab PO SCH (09:24)
[2018-12-18] MEDS: OMEPRAZOLE 20 MG PO SCH (09:24)
[2018-12-18] MEDS: Aspirin 325 MG Tab.EC PO SCH (09:25)
[2018-12-18] MEDS: MORPHINE 30 MG PO SCH ×2 (09:25→23:19)
[2018-12-18] MEDS: Magnesium Oxide 400 MG Tab PO SCH ×2 (09:25→23:13)
[2018-12-18] MEDS: LYRICA PO SCH ×3 (09:26→23:26)
[2018-12-18] MEDS: HYDROXYZINE HCL 25 MG PO PRN (09:28)
[2018-12-18] MEDS: AMMONIUM LACTATE 12% TOP SCH ×2 (09:29→23:18)
[2018-12-18] MEDS: Calcium Carbonate 750 MG Tab.Chew PO PRN (10:38)
[2018-12-18] MEDS: Ibuprofen 200 MG Tab PO PRN (10:39)
[2018-12-18] MEDS: Thiamine 100 MG Tab PO SCH (11:42)
[2018-12-18] MEDS: CYCLOBENZAPRINE 10 MG PO PRN (13:32)
[2018-12-18] MEDS: TOPIRAMATE 50 MG PO SCH (23:14)
[2018-12-18] MEDS: TRAZODONE 100 MG PO SCH (23:15)
[2018-12-19] MEDS: BUPROPION HCL 300 MG PO SCH (10:05)
[2018-12-19] MEDS: OXCARBAZEPINE 600 MG PO SCH ×2 (10:06→20:01)
[2018-12-19] MEDS: FOLIC ACID 1 MG PO SCH ×3 (10:06→20:00)
[2018-12-19] MEDS: POTASSIUM CHLORIDE 10 MEQ PO SCH (10:06)
[2018-12-19] MEDS: METFORMIN 500 MG PO SCH ×3 (10:07→17:55)
[2018-12-19] MEDS: FUROSEMIDE 40 MG PO SCH ×2 (10:07→12:51)
[2018-12-19] MEDS: VITAMIN D3 2000 UNIT PO SCH (10:08)
[2018-12-19] MEDS: CYANOCOBALAMIN PO SCH (10:08)
[2018-12-19] MEDS: STOOL SOFTENER PO SCH ×2 (10:09→19:58)
[2018-12-19] MEDS: LYRICA PO SCH ×3 (10:09→20:10)
[2018-12-19] MEDS: SENNA PO SCH ×2 (10:09→19:58)
[2018-12-19] MEDS: Aspirin 325 MG Tab.EC PO SCH (10:10)
[2018-12-19] MEDS: OMEPRAZOLE 20 MG PO SCH (10:10)
[2018-12-19] MEDS: Magnesium Oxide 400 MG Tab PO SCH ×2 (10:11→19:59)
[2018-12-19] MEDS: MORPHINE 30 MG PO SCH ×2 (10:11→20:08)
[2018-12-19] MEDS: AMMONIUM LACTATE 12% TOP SCH ×2 (10:12→20:03)
[2018-12-19] MEDS: Multivitamins with Iron/Calcium/Folic Acid/Minerals Tab PO SCH (10:12)
[2018-12-19] MEDS: HYDROXYZINE HCL 25 MG PO PRN (10:13)
[2018-12-19] MEDS: Ibuprofen 200 MG Tab PO PRN (10:19)
[2018-12-19] MEDS: CYCLOBENZAPRINE 10 MG PO PRN (12:55)
[2018-12-19] MEDS: Thiamine 100 MG Tab PO SCH (12:56)
[2018-12-19] MEDS: TOPIRAMATE 50 MG PO SCH (19:57)
[2018-12-19] MEDS: Docusate Sodium 100 MG Cap PO PRN (20:00)
[2018-12-19] MEDS: TRAZODONE 100 MG PO SCH (20:01)
[2018-12-20] MEDS: Magnesium Oxide 400 MG Tab PO SCH ×2 (08:36→21:15)
[2018-12-20] MEDS: Multivitamins with Iron/Calcium/Folic Acid/Minerals Tab PO SCH (08:37)
[2018-12-20] MEDS: Aspirin 325 MG Tab.EC PO SCH (08:37)
[2018-12-20] MEDS: POTASSIUM CHLORIDE 10 MEQ PO SCH (08:37)
[2018-12-20] MEDS: BUPROPION HCL 300 MG PO SCH (08:37)
[2018-12-20] MEDS: OMEPRAZOLE 20 MG PO SCH (08:37)
[2018-12-20] MEDS: FUROSEMIDE 40 MG PO SCH ×2 (08:38→11:36)
[2018-12-20] MEDS: FOLIC ACID 1 MG PO SCH ×3 (08:38→21:18)
[2018-12-20] MEDS: METFORMIN 500 MG PO SCH ×3 (08:38→17:25)
[2018-12-20] MEDS: SENNA PO SCH ×2 (08:39→21:17)
[2018-12-20] MEDS: OXCARBAZEPINE 600 MG PO SCH ×2 (08:39→21:15)
[2018-12-20] MEDS: VITAMIN D3 2000 UNIT PO SCH (08:39)
[2018-12-20] MEDS: STOOL SOFTENER PO SCH ×2 (08:39→21:17)
[2018-12-20] MEDS: MORPHINE 30 MG PO SCH ×2 (08:40→21:12)
[2018-12-20] MEDS: CYANOCOBALAMIN PO SCH (08:40)
[2018-12-20] MEDS: LYRICA PO SCH ×3 (08:40→21:12)
[2018-12-20] MEDS: HYDROXYZINE HCL 25 MG PO PRN ×2 (08:42→21:19)
[2018-12-20] MEDS: AMMONIUM LACTATE 12% TOP SCH ×2 (11:36→21:15)
[2018-12-20] MEDS: CYCLOBENZAPRINE 10 MG PO PRN (11:37)
[2018-12-20] MEDS: Thiamine 100 MG Tab PO SCH (12:41)
[2018-12-20] MEDS: Docusate Sodium 100 MG Cap PO PRN (21:15)
[2018-12-20] MEDS: TRAZODONE 100 MG PO SCH (21:17)
[2018-12-20] MEDS: TOPIRAMATE 50 MG PO SCH (21:18)
[2018-12-21] MEDS: MORPHINE 30 MG PO SCH ×2 (08:54→19:56)
[2018-12-21] MEDS: LYRICA PO SCH ×3 (08:55→20:03)
[2018-12-21] MEDS: Magnesium Oxide 400 MG Tab PO SCH ×2 (08:55→19:51)
[2018-12-21] MEDS: Aspirin 325 MG Tab.EC PO SCH (08:55)
[2018-12-21] MEDS: OMEPRAZOLE 20 MG PO SCH (08:55)
[2018-12-21] MEDS: Multivitamins with Iron/Calcium/Folic Acid/Minerals Tab PO SCH (08:55)
[2018-12-21] MEDS: BUPROPION HCL 300 MG PO SCH (08:56)
[2018-12-21] MEDS: FOLIC ACID 1 MG PO SCH ×3 (08:56→19:51)
[2018-12-21] MEDS: OXCARBAZEPINE 600 MG PO SCH ×2 (08:56→20:02)
[2018-12-21] MEDS: CYANOCOBALAMIN PO SCH (08:57)
[2018-12-21] MEDS: POTASSIUM CHLORIDE 10 MEQ PO SCH (08:57)
[2018-12-21] MEDS: METFORMIN 500 MG PO SCH ×3 (08:57→17:33)
[2018-12-21] MEDS: FUROSEMIDE 40 MG PO SCH ×2 (08:57→11:41)
[2018-12-21] MEDS: VITAMIN D3 2000 UNIT PO SCH (08:58)
[2018-12-21] MEDS: HYDROXYZINE HCL 25 MG PO PRN ×2 (08:59→19:52)
[2018-12-21] MEDS: Thiamine 100 MG Tab PO SCH (11:40)
[2018-12-21] MEDS: AMMONIUM LACTATE 12% TOP SCH ×2 (11:40→19:51)
[2018-12-21] MEDS: CYCLOBENZAPRINE 10 MG PO PRN ×2 (14:01→19:53)
[2018-12-21] MEDS: LORAZEPAM PO PRN (19:54)
[2018-12-21] MEDS: TOPIRAMATE 50 MG PO SCH (20:01)
[2018-12-21] MEDS: TRAZODONE 100 MG PO SCH (20:04)
[2018-12-22] MEDS: POTASSIUM CHLORIDE 10 MEQ PO SCH (08:21)
[2018-12-22] MEDS: OXCARBAZEPINE 600 MG PO SCH ×3 (08:21→22:25)
[2018-12-22] MEDS: FOLIC ACID 1 MG PO SCH ×3 (08:22→19:40)
[2018-12-22] MEDS: FUROSEMIDE 40 MG PO SCH ×2 (08:22→11:13)
[2018-12-22] MEDS: BUPROPION HCL 300 MG PO SCH (08:22)
[2018-12-22] MEDS: Multivitamins with Iron/Calcium/Folic Acid/Minerals Tab PO SCH (08:23)
[2018-12-22] MEDS: METFORMIN 500 MG PO SCH ×3 (08:23→17:21)
[2018-12-22] MEDS: VITAMIN D3 2000 UNIT PO SCH (08:23)
[2018-12-22] MEDS: OMEPRAZOLE 20 MG PO SCH (08:24)
[2018-12-22] MEDS: Magnesium Oxide 400 MG Tab PO SCH ×2 (08:24→19:40)
[2018-12-22] MEDS: Aspirin 325 MG Tab.EC PO SCH (08:24)
[2018-12-22] MEDS: MORPHINE 30 MG PO SCH ×2 (08:25→19:41)
[2018-12-22] MEDS: LYRICA PO SCH ×4 (08:26→22:25)
[2018-12-22] MEDS: HYDROXYZINE HCL 25 MG PO PRN ×2 (08:28→19:48)
[2018-12-22] MEDS: AMMONIUM LACTATE 12% TOP SCH ×3 (08:28→19:40)
[2018-12-22] MEDS: CYANOCOBALAMIN PO SCH (09:23)
[2018-12-22] MEDS: Thiamine 100 MG Tab PO SCH (11:12)
[2018-12-22] MEDS: Cyanocobalamin (Vitamin B12) 1,000 MCG Tab PO SCH (11:12)
[2018-12-22] MEDS: CYCLOBENZAPRINE 10 MG PO PRN ×2 (11:13→19:50)
[2018-12-22] MEDS: Docusate Sodium 100 MG Cap PO PRN (11:18)
[2018-12-22] MEDS: TOPIRAMATE 50 MG PO SCH (19:43)
[2018-12-22] MEDS: TRAZODONE 100 MG PO SCH ×2 (19:47→22:26)
[2018-12-22] MEDS: LORAZEPAM PO PRN (19:49)
[2018-12-23] MEDS: BUPROPION HCL 300 MG PO SCH (08:56)
[2018-12-23] MEDS: METFORMIN 500 MG PO SCH ×3 (08:56→18:22)
[2018-12-23] MEDS: POTASSIUM CHLORIDE 10 MEQ PO SCH (08:56)
[2018-12-23] MEDS: FOLIC ACID 1 MG PO SCH ×3 (08:56→19:54)
[2018-12-23] MEDS: LYRICA PO SCH ×3 (08:57→19:59)
[2018-12-23] MEDS: OXCARBAZEPINE 600 MG PO SCH ×3 (08:57→20:03)
[2018-12-23] MEDS: FUROSEMIDE 40 MG PO SCH ×2 (08:57→12:43)
[2018-12-23] MEDS: MORPHINE 30 MG PO SCH ×2 (08:58→19:56)
[2018-12-23] MEDS: VITAMIN D3 2000 UNIT PO SCH (08:59)
[2018-12-23] MEDS: Multivitamins with Iron/Calcium/Folic Acid/Minerals Tab PO SCH (09:04)
[2018-12-23] MEDS: Magnesium Oxide 400 MG Tab PO SCH ×2 (09:04→19:55)
[2018-12-23] MEDS: Aspirin 325 MG Tab.EC PO SCH (09:04)
[2018-12-23] MEDS: Cyanocobalamin (Vitamin B12) 1,000 MCG Tab PO SCH (09:07)
[2018-12-23] MEDS: OMEPRAZOLE 20 MG PO SCH (10:28)
[2018-12-23] MEDS: HYDROXYZINE HCL 25 MG PO PRN ×2 (12:42→20:01)
[2018-12-23] MEDS: CYCLOBENZAPRINE 10 MG PO PRN ×2 (12:42→20:02)
[2018-12-23] MEDS: Thiamine 100 MG Tab PO SCH (12:46)
[2018-12-23] MEDS: AMMONIUM LACTATE 12% TOP SCH ×2 (13:20→19:54)
[2018-12-23] MEDS: TOPIRAMATE 50 MG PO SCH (19:57)
[2018-12-23] MEDS: TRAZODONE 100 MG PO SCH (20:00)
[2018-12-23] MEDS: LORAZEPAM PO PRN (20:03)
[2018-12-24] MEDS: Cyanocobalamin (Vitamin B12) 1,000 MCG Tab PO SCH (10:06)
[2018-12-24] MEDS: Magnesium Oxide 400 MG Tab PO SCH ×2 (10:06→20:50)
[2018-12-24] MEDS: CYCLOBENZAPRINE 10 MG PO PRN ×2 (10:06→18:17)
[2018-12-24] MEDS: Aspirin 325 MG Tab.EC PO SCH (10:06)
[2018-12-24] MEDS: Omeprazole 20 MG Cap.CR PO SCH (10:06)
[2018-12-24] MEDS: Cholecalciferol (Vitamin D3) 1,000 Unit Tab PO SCH (10:06)
[2018-12-24] MEDS: OXCARBAZEPINE 600 MG PO SCH ×2 (10:07→21:11)
[2018-12-24] MEDS: FUROSEMIDE 40 MG PO SCH ×2 (10:07→12:09)
[2018-12-24] MEDS: POTASSIUM CHLORIDE 10 MEQ PO SCH (10:07)
[2018-12-24] MEDS: METFORMIN 500 MG PO SCH ×3 (10:07→18:16)
[2018-12-24] MEDS: BUPROPION HCL 300 MG PO SCH (10:07)
[2018-12-24] MEDS: HYDROXYZINE HCL 25 MG PO PRN ×2 (10:07→20:50)
[2018-12-24] MEDS: FOLIC ACID 1 MG PO SCH ×3 (10:07→20:50)
[2018-12-24] MEDS: LYRICA PO SCH ×3 (10:08→21:12)
[2018-12-24] MEDS: MORPHINE 30 MG PO SCH ×2 (10:08→20:50)
[2018-12-24] MEDS: Multivitamins with Iron/Calcium/Folic Acid/Minerals Tab PO SCH (10:19)
[2018-12-24] MEDS: AMMONIUM LACTATE 12% TOP SCH ×2 (10:20→20:50)
[2018-12-24] MEDS: Calcium Carbonate 750 MG Tab.Chew PO PRN (11:21)
[2018-12-24] MEDS: Thiamine 100 MG Tab PO SCH (12:12)
[2018-12-24] MEDS: TOPIRAMATE 50 MG PO SCH (20:50)
[2018-12-24] MEDS: TRAZODONE 100 MG PO SCH (21:10)
[2018-12-24] MEDS: LORAZEPAM PO PRN (21:13)
[2018-12-25] MEDS: METFORMIN 500 MG PO SCH ×3 (08:10→17:45)
[2018-12-25] MEDS: FOLIC ACID 1 MG PO SCH ×3 (08:11→20:17)
[2018-12-25] MEDS: HYDROXYZINE HCL 25 MG PO PRN ×2 (08:11→20:33)
[2018-12-25] MEDS: POTASSIUM CHLORIDE 10 MEQ PO SCH (08:11)
[2018-12-25] MEDS: OXCARBAZEPINE 600 MG PO SCH ×2 (08:11→20:22)
[2018-12-25] MEDS: FUROSEMIDE 40 MG PO SCH ×2 (08:11→12:22)
[2018-12-25] MEDS: BUPROPION HCL 300 MG PO SCH (08:11)
[2018-12-25] MEDS: CYCLOBENZAPRINE 10 MG PO PRN ×2 (08:11→17:46)
[2018-12-25] MEDS: MORPHINE 30 MG PO SCH ×2 (08:12→20:16)
[2018-12-25] MEDS: LYRICA PO SCH ×3 (08:13→20:23)
[2018-12-25] MEDS: Cholecalciferol (Vitamin D3) 1,000 Unit Tab PO SCH (08:15)
[2018-12-25] MEDS: Aspirin 325 MG Tab.EC PO SCH (08:15)
[2018-12-25] MEDS: Magnesium Oxide 400 MG Tab PO SCH ×2 (08:15→20:16)
[2018-12-25] MEDS: Omeprazole 20 MG Cap.CR PO SCH (08:15)
[2018-12-25] MEDS: Multivitamins with Iron/Calcium/Folic Acid/Minerals Tab PO SCH (08:15)
[2018-12-25] MEDS: Cyanocobalamin (Vitamin B12) 1,000 MCG Tab PO SCH (08:15)
[2018-12-25] MEDS: AMMONIUM LACTATE 12% TOP SCH ×2 (12:22→20:14)
[2018-12-25] MEDS: Thiamine 100 MG Tab PO SCH (12:25)
[2018-12-25] MEDS: TOPIRAMATE 50 MG PO SCH (20:18)
[2018-12-25] MEDS: LORAZEPAM PO PRN (20:30)
[2018-12-25] MEDS: TRAZODONE 100 MG PO SCH (20:35)
[2018-12-26] MEDS: Cholecalciferol (Vitamin D3) 1,000 Unit Tab PO SCH (09:44)
[2018-12-26] MEDS: Aspirin 325 MG Tab.EC PO SCH (09:44)
[2018-12-26] MEDS: Omeprazole 20 MG Cap.CR PO SCH (09:44)
[2018-12-26] MEDS: Magnesium Oxide 400 MG Tab PO SCH ×2 (09:44→20:19)
[2018-12-26] MEDS: Cyanocobalamin (Vitamin B12) 1,000 MCG Tab PO SCH (09:45)
[2018-12-26] MEDS: BUPROPION HCL 300 MG PO SCH (09:45)
[2018-12-26] MEDS: Multivitamins with Iron/Calcium/Folic Acid/Minerals Tab PO SCH (09:45)
[2018-12-26] MEDS: FUROSEMIDE 40 MG PO SCH ×2 (09:46→12:12)
[2018-12-26] MEDS: FOLIC ACID 1 MG PO SCH ×3 (09:47→20:22)
[2018-12-26] MEDS: OXCARBAZEPINE 600 MG PO SCH ×2 (09:48→20:25)
[2018-12-26] MEDS: POTASSIUM CHLORIDE 10 MEQ PO SCH (09:48)
[2018-12-26] MEDS: METFORMIN 500 MG PO SCH ×3 (09:49→17:31)
[2018-12-26] MEDS: LYRICA PO SCH ×3 (09:51→20:27)
[2018-12-26] MEDS: MORPHINE 30 MG PO SCH ×2 (09:51→20:20)
[2018-12-26] MEDS: HYDROXYZINE HCL 25 MG PO PRN ×2 (09:54→20:27)
[2018-12-26] MEDS: AMMONIUM LACTATE 12% TOP SCH ×2 (10:02→20:19)
[2018-12-26] MEDS: Thiamine 100 MG Tab PO SCH (12:11)
[2018-12-26] MEDS: CYCLOBENZAPRINE 10 MG PO PRN ×2 (12:13→20:27)
[2018-12-26] MEDS: TOPIRAMATE 50 MG PO SCH (20:21)
[2018-12-26] MEDS: TRAZODONE 100 MG PO SCH (20:26)
[2018-12-26] MEDS: LORAZEPAM PO PRN (20:28)
[2018-12-27] MEDS: METFORMIN 500 MG PO SCH ×3 (07:46→17:52)
[2018-12-27] MEDS: OXCARBAZEPINE 600 MG PO SCH ×2 (07:46→21:01)
[2018-12-27] MEDS: FOLIC ACID 1 MG PO SCH ×3 (07:46→20:59)
[2018-12-27] MEDS: HYDROXYZINE HCL 25 MG PO PRN ×2 (07:46→21:11)
[2018-12-27] MEDS: CYCLOBENZAPRINE 10 MG PO PRN ×2 (07:46→21:12)
[2018-12-27] MEDS: FUROSEMIDE 40 MG PO SCH ×2 (07:46→12:36)
[2018-12-27] MEDS: Multivitamins with Iron/Calcium/Folic Acid/Minerals Tab PO SCH (07:47)
[2018-12-27] MEDS: Magnesium Oxide 400 MG Tab PO SCH ×2 (07:47→21:08)
[2018-12-27] MEDS: BUPROPION HCL 300 MG PO SCH (07:47)
[2018-12-27] MEDS: POTASSIUM CHLORIDE 10 MEQ PO SCH (07:47)
[2018-12-27] MEDS: Cholecalciferol (Vitamin D3) 1,000 Unit Tab PO SCH (07:47)
[2018-12-27] MEDS: Aspirin 325 MG Tab.EC PO SCH (07:47)
[2018-12-27] MEDS: MORPHINE 30 MG PO SCH ×2 (07:48→21:00)
[2018-12-27] MEDS: LYRICA PO SCH ×3 (07:48→20:59)
[2018-12-27] MEDS: Cyanocobalamin (Vitamin B12) 1,000 MCG Tab PO SCH (07:50)
[2018-12-27] MEDS: Omeprazole 20 MG Cap.CR PO SCH (07:50)
[2018-12-27] MEDS: Thiamine 100 MG Tab PO SCH (12:35)
[2018-12-27] MEDS: AMMONIUM LACTATE 12% TOP SCH ×2 (12:35→20:59)
[2018-12-27] MEDS: TOPIRAMATE 50 MG PO SCH (21:00)
[2018-12-27] MEDS: LORAZEPAM PO PRN (21:00)
[2018-12-27] MEDS: TRAZODONE 100 MG PO SCH (21:01)
[2018-12-28 07:09] LABS: CHLORIDE,CL 91 mmol/L (98-107)
[2018-12-28 07:13] LABS: ANION GAP 10.1 mmol/L (10-20); SODIUM,NA 128 mmol/L (136-145)
[2018-12-28] MEDS: LYRICA PO SCH ×3 (07:44→20:52)
[2018-12-28] MEDS: HYDROXYZINE HCL 25 MG PO PRN ×2 (07:44→20:51)
[2018-12-28] MEDS: MORPHINE 30 MG PO SCH ×2 (07:44→20:48)
[2018-12-28] MEDS: POTASSIUM CHLORIDE 10 MEQ PO SCH (07:45)
[2018-12-28] MEDS: METFORMIN 500 MG PO SCH ×3 (07:45→18:00)
[2018-12-28] MEDS: Omeprazole 20 MG Cap.CR PO SCH (07:45)
[2018-12-28] MEDS: FUROSEMIDE 40 MG PO SCH ×2 (07:45→12:21)
[2018-12-28] MEDS: FOLIC ACID 1 MG PO SCH ×3 (07:45→20:47)
[2018-12-28] MEDS: OXCARBAZEPINE 600 MG PO SCH ×2 (07:45→20:49)
[2018-12-28] MEDS: CYCLOBENZAPRINE 10 MG PO PRN ×2 (07:45→18:00)
[2018-12-28] MEDS: BUPROPION HCL 300 MG PO SCH (07:45)
[2018-12-28] MEDS: AMMONIUM LACTATE 12% TOP SCH ×3 (07:46→20:47)
[2018-12-28] MEDS: Aspirin 325 MG Tab.EC PO SCH (07:46)
[2018-12-28] MEDS: Cholecalciferol (Vitamin D3) 1,000 Unit Tab PO SCH (07:46)
[2018-12-28] MEDS: Magnesium Oxide 400 MG Tab PO SCH ×2 (07:46→20:47)
[2018-12-28] MEDS: Cyanocobalamin (Vitamin B12) 1,000 MCG Tab PO SCH (07:46)
[2018-12-28] MEDS: Multivitamins with Iron/Calcium/Folic Acid/Minerals Tab PO SCH (07:46)
[2018-12-28] MEDS: Thiamine 100 MG Tab PO SCH (12:21)
[2018-12-28] MEDS: TRAZODONE 100 MG PO SCH (20:48)
[2018-12-28] MEDS: TOPIRAMATE 50 MG PO SCH (20:48)
[2018-12-28] MEDS: LORAZEPAM PO PRN (20:51)
[2018-12-29] MEDS: MORPHINE 30 MG PO SCH ×2 (08:24→21:19)
[2018-12-29] MEDS: LYRICA PO SCH ×3 (08:24→21:20)
[2018-12-29] MEDS: CYCLOBENZAPRINE 10 MG PO PRN ×2 (08:24→21:25)
[2018-12-29] MEDS: BUPROPION HCL 300 MG PO SCH (08:25)
[2018-12-29] MEDS: FUROSEMIDE 40 MG PO SCH ×2 (08:25→12:24)
[2018-12-29] MEDS: POTASSIUM CHLORIDE 10 MEQ PO SCH (08:25)
[2018-12-29] MEDS: FOLIC ACID 1 MG PO SCH ×3 (08:25→21:16)
[2018-12-29] MEDS: METFORMIN 500 MG PO SCH ×3 (08:25→17:41)
[2018-12-29] MEDS: OXCARBAZEPINE 600 MG PO SCH ×2 (08:25→21:19)
[2018-12-29] MEDS: Cholecalciferol (Vitamin D3) 1,000 Unit Tab PO SCH (08:26)
[2018-12-29] MEDS: Aspirin 325 MG Tab.EC PO SCH (08:26)
[2018-12-29] MEDS: Multivitamins with Iron/Calcium/Folic Acid/Minerals Tab PO SCH (08:26)
[2018-12-29] MEDS: Omeprazole 20 MG Cap.CR PO SCH (08:26)
[2018-12-29] MEDS: Cyanocobalamin (Vitamin B12) 1,000 MCG Tab PO SCH (08:26)
[2018-12-29] MEDS: Magnesium Oxide 400 MG Tab PO SCH ×2 (08:26→21:16)
[2018-12-29] MEDS: HYDROXYZINE HCL 25 MG PO PRN ×2 (08:27→21:26)
[2018-12-29] MEDS: Thiamine 100 MG Tab PO SCH (12:23)
[2018-12-29] MEDS: AMMONIUM LACTATE 12% TOP SCH ×2 (12:23→21:15)
[2018-12-29] MEDS: TRAZODONE 100 MG PO SCH (21:17)
[2018-12-29] MEDS: TOPIRAMATE 50 MG PO SCH (21:17)
[2018-12-29] MEDS: LORAZEPAM PO PRN (21:23)
[2018-12-30] MEDS: HYDROXYZINE HCL 25 MG PO PRN (09:08)
[2018-12-30] MEDS: CYCLOBENZAPRINE 10 MG PO PRN ×3 (09:08→21:20)
[2018-12-30] MEDS: FOLIC ACID 1 MG PO SCH ×3 (09:08→19:30)
[2018-12-30] MEDS: POTASSIUM CHLORIDE 10 MEQ PO SCH (09:09)
[2018-12-30] MEDS: FUROSEMIDE 40 MG PO SCH ×2 (09:09→15:10)
[2018-12-30] MEDS: BUPROPION HCL 300 MG PO SCH (09:09)
[2018-12-30] MEDS: METFORMIN 500 MG PO SCH ×3 (09:09→18:11)
[2018-12-30] MEDS: OXCARBAZEPINE 600 MG PO SCH ×2 (09:10→21:15)
[2018-12-30] MEDS: MORPHINE 30 MG PO SCH ×2 (09:10→19:29)
[2018-12-30] MEDS: LORAZEPAM PO PRN ×2 (09:10→21:18)
[2018-12-30] MEDS: Aspirin 325 MG Tab.EC PO SCH (09:10)
[2018-12-30] MEDS: Cyanocobalamin (Vitamin B12) 1,000 MCG Tab PO SCH (09:11)
[2018-12-30] MEDS: Multivitamins with Iron/Calcium/Folic Acid/Minerals Tab PO SCH (09:11)
[2018-12-30] MEDS: Cholecalciferol (Vitamin D3) 1,000 Unit Tab PO SCH (09:11)
[2018-12-30] MEDS: Magnesium Oxide 400 MG Tab PO SCH ×2 (09:11→19:29)
[2018-12-30] MEDS: Omeprazole 20 MG Cap.CR PO SCH (09:11)
[2018-12-30] MEDS: AMMONIUM LACTATE 12% TOP SCH ×2 (09:17→19:28)
[2018-12-30] MEDS: LYRICA PO SCH (10:50)
[2018-12-30] MEDS: Thiamine 100 MG Tab PO SCH (15:08)
[2018-12-30] MEDS: PREGABALIN 100 MG PO SCH ×2 (15:09→19:32)
[2018-12-30] MEDS: TOPIRAMATE 50 MG PO SCH (19:31)
[2018-12-30] MEDS ORDERED: hydrOXYzine HCl 25 MG Tab PO ONE (20:25)
[2018-12-30] MEDS: TRAZODONE 100 MG PO SCH (21:15)
--- NOTE | 2018-12-30 21:38 | PCM.PN ---
- General Info Date of Service: 12/29/18 Admission Dx/Problem (Free Text): Patient lost another 8 lbs, is still waiting to get her cpap equipment. Echo is planned for tomorrow. She drinks significant amounts of coffee over 2 pots a day. Sodium continues to be low. She enjoys exercising in the cardiac rehab room 3 x a week. Sometimes the right knee causes her pain. She is initiating walks on her own at the hospital. Functional Status: Reports: Tolerating Diet - Review of Systems General: Reports: No Symptoms Pulmonary: Reports: No Symptoms Cardiovascular: Reports: No Symptoms Gastrointestinal: Reports: No Symptoms Musculoskeletal: Reports: Leg Pain (neuropathy) Skin: Reports: No Symptoms Psychiatric: Reports: No Symptoms - Patient Data Vitals - Most Recent: Last Vital Signs Temp 97.4 F 12/30/18 05:42 Pulse 63 12/30/18 05:42 Resp 20 12/30/18 05:42 BP 112/48 L 12/30/18 05:42 Pulse Ox 94 L 12/30/18 05:42 Weight - Most Recent: 177.808 kg I&O - Last 24 Hours: Intake & Output 12/30/18 12/30/18 12/30/18 06:59 14:59 22:59 Intake Total 660 480 Balance 660 480 Med Orders - Current: Current Medications Acetaminophen (Tylenol Extra Strength) 500 mg PO QID PRN PRN Reason: Pain Last Admin: 12/07/18 16:28 Dose: 500 mg Aspirin (Ecotrin) 325 mg PO DAILY [facility] Last Admin: 12/30/18 09:10 Dose: 325 mg Bisacodyl (Dulcolax) 5 mg PO DAILY PRN PRN Reason: Constipation Last Admin: 12/08/18 18:01 Dose: 5 mg Calcium Carbonate/Glycine (Tums Extra Strength) 1,500 mg PO Q2H PRN PRN Reason: Dyspepsia Last Admin: 12/24/18 11:21 Dose: 1,500 mg Cholecalciferol (Vitamin D3) 2,000 units PO DAILY [facility] Last Admin: 12/30/18 09:11 Dose: 2,000 units Cyanocobalamin (Vitamin B12) 1,000 mcg PO DAILY [facility] Last Admin: 12/30/18 09:11 Dose: 1,000 mcg Cyclobenzaprine HCl (Flexeril) 10 mg PO TID PRN PRN Reason: Muscle Spasm Last Admin: 12/30/18 21:20 Dose: 10 mg Docusate Sodium (Colace) 100 mg PO QID PRN PRN Reason: Constipation Last Admin: 12/22/18 11:18 Dose: 100 mg Folic Acid (Folic Acid) 1 mg PO TID [facility] Last Admin: 12/30/18 19:30 Dose: 1 mg Furosemide (Lasix) 40 mg PO BID@0800,1200 [facility] Last Admin: 12/30/18 15:10 Dose: 40 mg Hydroxyzine HCl (Atarax) 25 mg PO QID PRN PRN Reason: Anxiety Last Admin: 12/30/18 09:08 Dose: 25 mg Ibuprofen (Motrin) 800 mg PO TID PRN PRN Reason: Pain (moderate 4-6) Last Admin: 12/19/18 10:19 Dose: 800 mg Magnesium Hydroxide (Milk Of Magnesia) 30 ml PO DAILY PRN PRN Reason: Constipation Magnesium Oxide (Magnesium Oxide) 800 mg PO BID [facility] Last Admin: 12/30/18 19:29 Dose: 800 mg Metformin HCl (Glucophage) 500 mg PO TIDMEALS [facility] Last Admin: 12/30/18 18:11 Dose: 500 mg Multivitamins/Minerals (Thera M Plus) 1 tab PO DAILY [facility] Last Admin: 12/30/18 09:11 Dose: 1 tab Own Med ( Oxcarbazepine [ Trileptal] 600 Mg) 0 mg PO BID@0800,2100 [facility] Last Admin: 12/30/18 21:15 Dose: 1,200 mg Own Med (Trazodone (100 Mg)) 0 mg PO BEDTIME PRN PRN Reason: Insomnia Last Admin: 12/05/18 21:56 Dose: 50 mg Ammonium Lactate (Lotion 12% (Otc)) 1 each TOP BID@10,20 [facility] Last Admin: 12/30/18 19:28 Dose: 1 each Topiramate. 50mg ( (Own Supply)) 0 mg PO BEDTIME [facility] Last Admin: 12/30/18 19:31 Dose: 50 mg Own Med (Trazodone (100 Mg)) 0 mg PO BEDTIME@2100 [facility] Last Admin: 12/30/18 21:15 Dose: 100 mg Morphine.Er 30mg ( (Own Supply)) 0 mg PO BID [facility] Last Admin: 12/30/18 19:29 Dose: 30 mg Sertraline. 100mg ( (Own Supply)) 0 mg PO DAILY [facility] Last Admin: 12/30/18 09:09 Dose: 100 mg Own Med (Bupropion Hcl [Wellbutrin Xl] 300 Mg) 0 mg PO DAILY [facility] Last Admin: 12/30/18 09:09 Dose: 300 mg Lorazepam. 0.25mg (1 /2 X 0.5mg Tab) : Own Supply 0 each PO BID PRN PRN Reason: Anxiety Last Admin: 12/30/18 21:18 Dose: 0.25 each Pregabalin (Lyrica) (100 Mg (Own Supply)) 0 mg PO TID [facility] Last Admin: 12/30/18 19:32 Dose: 100 mg Omeprazole (Omeprazole) 20 mg PO DAILY [facility] Last Admin: 12/30/18 09:11 Dose: 20 mg Potassium Chloride (Klor-Con 10) 10 meq PO DAILY [facility] Last Admin: 12/30/18 09:09 Dose: 10 meq Senna/Docusate Sodium (Senna Plus) 1 tab PO BID [facility] Last Admin: 12/30/18 19:29 Dose: 1 tab Thiamine HCl (Vitamin B-1) 100 mg PO DAILY@1200 [facility] Last Admin: 12/30/18 15:08 Dose: 100 mg Discontinued Medications Cholecalciferol (Vitamin D3) 2,000 units PO DAILY [facility] Last Admin: 12/09/18 08:11 Dose: 2,000 units Cyanocobalamin (Vitamin B12) 1,000 mcg PO DAILY [facility] Last Admin: 12/09/18 08:11 Dose: 1,000 mcg Hydroxyzine HCl (Atarax) 25 mg PO ONETIME ONE Stop: 12/30/18 20:26 Last Admin: 12/30/18 21:15 Dose: 25 mg Magnesium Oxide (Magnesium Oxide) 800 mg PO TID [facility] Last Admin: 12/01/18 09:04 Dose: Not Given Magnesium Oxide (Magnesium Oxide) 800 mg PO BID [facility] Last Admin: 12/09/18 08:10 Dose: 800 mg Morphine Sulfate (Ms Contin) 30 mg PO BID [facility] Last Admin: 12/07/18 08:57 Dose: 30 mg Own Med (Bupropion Hcl [Wellbutrin Xl] 300 Mg) 300 mg PO DAILY [facility] Last Admin: 12/10/18 08:11 Dose: 300 mg Own Med Lyrica ( (Pregabalin 200 Mg)) 200 mg PO TID@0800,1200,2100 [facility] Last Admin: 12/03/18 07:37 Dose: 200 mg Own Med (Trazodone (100 Mg)) 100 mg PO BEDTIME@2100 [facility] Last Admin: 12/02/18 20:32 Dose: 100 mg Lorazepam 0.5mg (Own (Supply)) 1 each PO BID PRN PRN Reason: Anxiety Last Admin: 12/15/18 20:44 Dose: 1 each Topiramate. 25mg ( (Own Supply)) 0 mg PO BEDTIME JEFF Stop: 12/03/18 20:01 Last Admin: 12/03/18 20:52 Dose: 25 mg Sertraline. 50mg ( (Own Supply)) 0 mg PO DAILY [facility] Stop: 12/11/18 08:01 Last Admin: 12/11/18 08:00 Dose: 100 mg Own Med Lyrica ( (Pregabalin 200 Mg)) 0 mg PO TID@0800,1200,2100 [facility] Last Admin: 12/18/18 13:30 Dose: 200 mg Cyanocobalamin. 1 tab PO DAILY [facility] Stop: 12/23/18 08:01 Last Admin: 12/22/18 09:23 Dose: Not Given Magnesium. 400mg (Tabs) 2 tab PO BID [facility] Stop: 12/13/18 08:01 Last Admin: 12/13/18 08:09 Dose: 2 tab Thiamine. 1 tab PO DAILY@1200 [facility] Stop: 12/17/18 12:01 Last Admin: 12/17/18 13:23 Dose: 1 tab Senna+Stool Softener (8.6/50mg Tab) 1 tab PO BID [facility] Stop: 12/20/18 08:01 Last Admin: 12/20/18 08:39 Dose: 1 tab Vitamin D-3 2, (000units) 1 each PO DAILY [facility] Stop: 12/23/18 08:01 Last Admin: 12/23/18 08:59 Dose: 1 each Omeprazole. 20mg 1 each PO DAILY [facility] Stop: 01/06/19 08:01 Last Admin: 12/23/18 10:28 Dose: 1 each Own Med: Lyrica ( (Pregabalin 200 Mg)) 0 mg PO BID@0800,2100 [facility] Last Admin: 12/30/18 10:50 Dose: Not Given Own Med: Lyrica ( (Pregabalin 100 Mg)) 0 mg PO DAILY@1200 [facility] Last Admin: 12/29/18 12:24 Dose: 100 mg Omeprazole (Omeprazole) 20 mg PO DAILY [facility] Last Admin: 12/09/18 08:10 Dose: 20 mg Senna/Docusate Sodium (Senna Plus) 1 tab PO BID [facility] Last Admin: 12/09/18 08:10 Dose: 1 tab Thiamine HCl (Vitamin B-1) 100 mg PO DAILY@1200 [facility] Stop: 12/09/18 13:00 Last Admin: 12/09/18 13:18 Dose: 100 mg - Exam General: Alert, Oriented Lungs: Clear to Auscultation, Normal Respiratory Effort Cardiovascular: Regular Rate, Regular Rhythm Extremities: Normal Inspection, No Pedal Edema Skin: Warm, Dry - Problem List & Annotations (1) Anxiety and depression SNOMED Code(s): 191527807 Code(s): F41.9 - ANXIETY DISORDER, UNSPECIFIED; F32.9 - MAJOR DEPRESSIVE DISORDER, SINGLE EPISODE, UNSPECIFIED Status: Chronic Priority: Medium Current Visit: No (2) Hypertension SNOMED Code(s): 33129707 Code(s): I10 - ESSENTIAL (PRIMARY) HYPERTENSION Status: Chronic Priority : Medium Current Visit: No Qualifiers: Hypertension type: essential hypertension Qualified Code(s): I10 - Essential (primary) hypertension (3) Morbid obesity with BMI of 50.0-59.9, adult SNOMED Code(s): 806936633, 79525487052874 Code(s): E66.01 - MORBID (SEVERE) OBESITY DUE TO EXCESS CALORIES; Z68.43 - BODY MASS INDEX (BMI) 50-59.9, ADULT Status: Chronic Current Visit: No (4) Tobacco use disorder SNOMED Code(s): 718177925 Code(s): F17.200 - NICOTINE DEPENDENCE, UNSPECIFIED, UNCOMPLICATED Status: Chronic Priority: Medium Current Visit: No (5) Hyponatremia SNOMED Code(s): 41414237 Code(s): E87.1 - HYPO-OSMOLALITY AND HYPONATREMIA Status: Acute Priority : Medium Current Visit: Yes - Problem List Review Problem List Initiated/Reviewed/Updated: Yes - My Orders Last 24 Hours: My Active Orders 12/30/18 12:00 Pregabalin 0 mg PO TID - Assessment Assessment:: See problem list - Plan Plan:: Limit caffeine it should improve sodium serum and urine osmalarity are low, urine sodium not checked due to diuretics she is asymptomatic despite sodium under 130 Sleep apnea treatment as soon as it is approved by the sleep specialist Continue with exercise can increase to 4 x a week in cardiac rehab Continue to follow with nutrition plan eventual gastric bypass No smoking now and off the nicotine patch fire services plumber involved for length of stay. Goal weight is 367 for surgery Consider adding phentermine I did reach out to her weight loss doctor about adding this For her painful neuropathy she tolerated the decrease in Lyrica and hasn't noticed we will decrease further to 100 TID
[2018-12-31] MEDS: METFORMIN 500 MG PO SCH ×3 (08:19→17:40)
[2018-12-31] MEDS: OXCARBAZEPINE 600 MG PO SCH ×2 (08:19→20:13)
[2018-12-31] MEDS: FUROSEMIDE 40 MG PO SCH ×2 (08:20→12:10)
[2018-12-31] MEDS: Omeprazole 20 MG Cap.CR PO SCH (08:20)
[2018-12-31] MEDS: POTASSIUM CHLORIDE 10 MEQ PO SCH (08:20)
[2018-12-31] MEDS: Aspirin 325 MG Tab.EC PO SCH (08:20)
[2018-12-31] MEDS: BUPROPION HCL 300 MG PO SCH (08:20)
[2018-12-31] MEDS: CYCLOBENZAPRINE 10 MG PO PRN ×2 (08:20→20:14)
[2018-12-31] MEDS: FOLIC ACID 1 MG PO SCH ×3 (08:20→19:23)
[2018-12-31] MEDS: Magnesium Oxide 400 MG Tab PO SCH ×2 (08:21→19:23)
[2018-12-31] MEDS: Cyanocobalamin (Vitamin B12) 1,000 MCG Tab PO SCH (08:21)
[2018-12-31] MEDS: Multivitamins with Iron/Calcium/Folic Acid/Minerals Tab PO SCH (08:21)
[2018-12-31] MEDS: Cholecalciferol (Vitamin D3) 1,000 Unit Tab PO SCH (08:21)
[2018-12-31] MEDS: MORPHINE 30 MG PO SCH ×2 (08:22→19:21)
[2018-12-31] MEDS: PREGABALIN 100 MG PO SCH ×3 (08:23→19:25)
[2018-12-31] MEDS: HYDROXYZINE HCL 25 MG PO PRN ×2 (08:24→20:14)
[2018-12-31] MEDS: AMMONIUM LACTATE 12% TOP SCH ×2 (12:09→19:21)
[2018-12-31] MEDS: Thiamine 100 MG Tab PO SCH (12:10)
[2018-12-31] MEDS: MEDROXYPROGESTERONE 10 MG PO SCH (15:36)
[2018-12-31] MEDS: TOPIRAMATE 50 MG PO SCH (19:24)
[2018-12-31] MEDS: TRAZODONE 100 MG PO SCH (20:13)
[2018-12-31] MEDS: LORAZEPAM PO PRN (20:15)
[2019-01-01] MEDS: FOLIC ACID 1 MG PO SCH ×3 (08:45→20:49)
[2019-01-01] MEDS: POTASSIUM CHLORIDE 10 MEQ PO SCH (08:46)
[2019-01-01] MEDS: METFORMIN 500 MG PO SCH ×3 (08:46→20:48)
[2019-01-01] MEDS: FUROSEMIDE 40 MG PO SCH ×2 (08:46→12:35)
[2019-01-01] MEDS: PREGABALIN 100 MG PO SCH ×3 (08:47→20:53)
[2019-01-01] MEDS: BUPROPION HCL 300 MG PO SCH (08:47)
[2019-01-01] MEDS: Cholecalciferol (Vitamin D3) 1,000 Unit Tab PO SCH (08:50)
[2019-01-01] MEDS: Magnesium Oxide 400 MG Tab PO SCH ×2 (08:51→20:57)
[2019-01-01] MEDS: Cyanocobalamin (Vitamin B12) 1,000 MCG Tab PO SCH (08:52)
[2019-01-01] MEDS: Aspirin 325 MG Tab.EC PO SCH (08:52)
[2019-01-01] MEDS: Multivitamins with Iron/Calcium/Folic Acid/Minerals Tab PO SCH (08:53)
[2019-01-01] MEDS: OXCARBAZEPINE 600 MG PO SCH ×2 (08:54→20:49)
[2019-01-01] MEDS: MORPHINE 30 MG PO SCH ×2 (08:55→20:51)
[2019-01-01] MEDS: MEDROXYPROGESTERONE 10 MG PO SCH (08:57)
[2019-01-01] MEDS: Omeprazole 20 MG Cap.CR PO SCH (09:01)
[2019-01-01] MEDS: AMMONIUM LACTATE 12% TOP SCH ×2 (09:02→20:55)
[2019-01-01] MEDS: HYDROXYZINE HCL 25 MG PO PRN (09:04)
[2019-01-01] MEDS: Thiamine 100 MG Tab PO SCH (12:40)
[2019-01-01] MEDS: CYCLOBENZAPRINE 10 MG PO PRN ×2 (12:41→20:54)
[2019-01-01] MEDS: TOPIRAMATE 50 MG PO SCH (20:50)
[2019-01-01] MEDS: TRAZODONE 100 MG PO SCH (20:50)
[2019-01-02] MEDS: MORPHINE 30 MG PO SCH ×2 (09:32→21:17)
[2019-01-02] MEDS: POTASSIUM CHLORIDE 10 MEQ PO SCH (09:33)
[2019-01-02] MEDS: PREGABALIN 100 MG PO SCH ×3 (09:33→21:16)
[2019-01-02] MEDS: FOLIC ACID 1 MG PO SCH ×3 (09:34→21:18)
[2019-01-02] MEDS: FUROSEMIDE 40 MG PO SCH ×2 (09:34→12:04)
[2019-01-02] MEDS: BUPROPION HCL 300 MG PO SCH (09:35)
[2019-01-02] MEDS: METFORMIN 500 MG PO SCH ×3 (09:35→18:03)
[2019-01-02] MEDS: OXCARBAZEPINE 600 MG PO SCH ×2 (09:36→21:19)
[2019-01-02] MEDS: Cholecalciferol (Vitamin D3) 1,000 Unit Tab PO SCH (09:37)
[2019-01-02] MEDS: Omeprazole 20 MG Cap.CR PO SCH (09:38)
[2019-01-02] MEDS: Magnesium Oxide 400 MG Tab PO SCH ×2 (09:39→21:21)
[2019-01-02] MEDS: Aspirin 325 MG Tab.EC PO SCH (09:39)
[2019-01-02] MEDS: Cyanocobalamin (Vitamin B12) 1,000 MCG Tab PO SCH (09:40)
[2019-01-02] MEDS: Multivitamins with Iron/Calcium/Folic Acid/Minerals Tab PO SCH (09:40)
[2019-01-02] MEDS: MEDROXYPROGESTERONE 10 MG PO SCH (09:41)
[2019-01-02] MEDS: AMMONIUM LACTATE 12% TOP SCH ×2 (09:42→21:22)
[2019-01-02] MEDS: HYDROXYZINE HCL 25 MG PO PRN (09:43)
[2019-01-02] MEDS: Thiamine 100 MG Tab PO SCH (12:05)
[2019-01-02] MEDS: CYCLOBENZAPRINE 10 MG PO PRN ×2 (12:07→21:21)
[2019-01-02] MEDS: TOPIRAMATE 50 MG PO SCH (21:20)
[2019-01-02] MEDS: TRAZODONE 100 MG PO SCH (21:20)
[2019-01-03] MEDS: MORPHINE 30 MG PO SCH ×2 (09:24→21:01)
[2019-01-03] MEDS: PREGABALIN 100 MG PO SCH ×3 (09:24→21:00)
[2019-01-03] MEDS: METFORMIN 500 MG PO SCH ×3 (09:25→17:07)
[2019-01-03] MEDS: FUROSEMIDE 40 MG PO SCH ×2 (09:25→12:23)
[2019-01-03] MEDS: OXCARBAZEPINE 600 MG PO SCH ×2 (09:26→21:10)
[2019-01-03] MEDS: FOLIC ACID 1 MG PO SCH ×3 (09:26→21:10)
[2019-01-03] MEDS: MEDROXYPROGESTERONE 10 MG PO SCH (09:27)
[2019-01-03] MEDS: Omeprazole 20 MG Cap.CR PO SCH (09:27)
[2019-01-03] MEDS: Magnesium Oxide 400 MG Tab PO SCH ×2 (09:28→21:00)
[2019-01-03] MEDS: BUPROPION HCL 300 MG PO SCH (09:29)
[2019-01-03] MEDS: POTASSIUM CHLORIDE 10 MEQ PO SCH (09:29)
[2019-01-03] MEDS: Cholecalciferol (Vitamin D3) 1,000 Unit Tab PO SCH (09:30)
[2019-01-03] MEDS: CYCLOBENZAPRINE 10 MG PO PRN ×2 (09:30→21:12)
[2019-01-03] MEDS: Cyanocobalamin (Vitamin B12) 1,000 MCG Tab PO SCH (09:31)
[2019-01-03] MEDS: Aspirin 325 MG Tab.EC PO SCH (09:32)
[2019-01-03] MEDS: Multivitamins with Iron/Calcium/Folic Acid/Minerals Tab PO SCH (09:32)
[2019-01-03] MEDS: HYDROXYZINE HCL 25 MG PO PRN ×2 (09:33→21:12)
[2019-01-03] MEDS: AMMONIUM LACTATE 12% TOP SCH ×2 (09:36→21:11)
[2019-01-03] MEDS: Thiamine 100 MG Tab PO SCH (12:26)
[2019-01-03] MEDS: TRAZODONE 100 MG PO SCH (21:10)
[2019-01-03] MEDS: TOPIRAMATE 50 MG PO SCH (21:11)
[2019-01-04] MEDS: PREGABALIN 100 MG PO SCH ×3 (08:39→22:21)
[2019-01-04] MEDS: MORPHINE 30 MG PO SCH ×2 (08:39→22:21)
[2019-01-04] MEDS: BUPROPION HCL 300 MG PO SCH (08:40)
[2019-01-04] MEDS: POTASSIUM CHLORIDE 10 MEQ PO SCH (08:41)
[2019-01-04] MEDS: FUROSEMIDE 40 MG PO SCH ×2 (08:42→12:09)
[2019-01-04] MEDS: OXCARBAZEPINE 600 MG PO SCH ×2 (08:42→22:23)
[2019-01-04] MEDS: METFORMIN 500 MG PO SCH ×3 (08:43→17:44)
[2019-01-04] MEDS: FOLIC ACID 1 MG PO SCH ×3 (08:43→22:25)
[2019-01-04] MEDS: Magnesium Oxide 400 MG Tab PO SCH ×2 (08:44→22:22)
[2019-01-04] MEDS: Cyanocobalamin (Vitamin B12) 1,000 MCG Tab PO SCH (08:44)
[2019-01-04] MEDS: Multivitamins with Iron/Calcium/Folic Acid/Minerals Tab PO SCH (08:44)
[2019-01-04] MEDS: Omeprazole 20 MG Cap.CR PO SCH (08:45)
[2019-01-04] MEDS: Cholecalciferol (Vitamin D3) 1,000 Unit Tab PO SCH (08:45)
[2019-01-04] MEDS: Aspirin 325 MG Tab.EC PO SCH (08:46)
[2019-01-04] MEDS: MEDROXYPROGESTERONE 10 MG PO SCH (08:46)
[2019-01-04] MEDS: HYDROXYZINE HCL 25 MG PO PRN (08:47)
[2019-01-04] MEDS: AMMONIUM LACTATE 12% TOP SCH ×2 (10:23→22:25)
[2019-01-04] MEDS: Thiamine 100 MG Tab PO SCH (12:16)
[2019-01-04] MEDS: TOPIRAMATE 50 MG PO SCH (22:24)
[2019-01-04] MEDS: TRAZODONE 100 MG PO SCH (22:24)
[2019-01-04] MEDS: CYCLOBENZAPRINE 10 MG PO PRN (22:26)
[2019-01-05] MEDS: LORAZEPAM PO PRN ×2 (09:22→19:55)
[2019-01-05] MEDS: PREGABALIN 100 MG PO SCH ×3 (09:23→19:51)
[2019-01-05] MEDS: MORPHINE 30 MG PO SCH ×2 (09:23→19:48)
[2019-01-05] MEDS: FOLIC ACID 1 MG PO SCH ×3 (09:23→19:48)
[2019-01-05] MEDS: METFORMIN 500 MG PO SCH ×3 (09:24→18:18)
[2019-01-05] MEDS: POTASSIUM CHLORIDE 10 MEQ PO SCH (09:24)
[2019-01-05] MEDS: BUPROPION HCL 300 MG PO SCH (09:24)
[2019-01-05] MEDS: OXCARBAZEPINE 600 MG PO SCH ×3 (09:24→20:52)
[2019-01-05] MEDS: FUROSEMIDE 40 MG PO SCH ×2 (09:24→13:07)
[2019-01-05] MEDS: Cholecalciferol (Vitamin D3) 1,000 Unit Tab PO SCH (09:25)
[2019-01-05] MEDS: Aspirin 325 MG Tab.EC PO SCH (09:25)
[2019-01-05] MEDS: Magnesium Oxide 400 MG Tab PO SCH ×2 (09:25→19:48)
[2019-01-05] MEDS: Omeprazole 20 MG Cap.CR PO SCH (09:25)
[2019-01-05] MEDS: Multivitamins with Iron/Calcium/Folic Acid/Minerals Tab PO SCH (09:25)
[2019-01-05] MEDS: MEDROXYPROGESTERONE 10 MG PO SCH (09:26)
[2019-01-05] MEDS: Cyanocobalamin (Vitamin B12) 1,000 MCG Tab PO SCH (09:26)
[2019-01-05] MEDS: AMMONIUM LACTATE 12% TOP SCH ×2 (09:31→19:46)
[2019-01-05] MEDS: CYCLOBENZAPRINE 10 MG PO PRN ×2 (09:53→19:54)
[2019-01-05] MEDS: Thiamine 100 MG Tab PO SCH (13:08)
[2019-01-05] MEDS: TOPIRAMATE 50 MG PO SCH (19:52)
[2019-01-05] MEDS: TRAZODONE 100 MG PO SCH ×2 (19:54→20:52)
[2019-01-06] MEDS: MORPHINE 30 MG PO SCH ×2 (07:54→19:51)
[2019-01-06] MEDS: PREGABALIN 100 MG PO SCH ×3 (07:55→19:52)
[2019-01-06] MEDS: Magnesium Oxide 400 MG Tab PO SCH ×2 (07:56→19:50)
[2019-01-06] MEDS: Multivitamins with Iron/Calcium/Folic Acid/Minerals Tab PO SCH (07:56)
[2019-01-06] MEDS: Aspirin 325 MG Tab.EC PO SCH (07:56)
[2019-01-06] MEDS: Omeprazole 20 MG Cap.CR PO SCH (07:56)
[2019-01-06] MEDS: Cyanocobalamin (Vitamin B12) 1,000 MCG Tab PO SCH (07:56)
[2019-01-06] MEDS: Cholecalciferol (Vitamin D3) 1,000 Unit Tab PO SCH (07:56)
[2019-01-06] MEDS: HYDROXYZINE HCL 25 MG PO PRN ×2 (07:56→19:56)
[2019-01-06] MEDS: MEDROXYPROGESTERONE 10 MG PO SCH (07:57)
[2019-01-06] MEDS: FUROSEMIDE 40 MG PO SCH ×2 (07:57→12:17)
[2019-01-06] MEDS: CYCLOBENZAPRINE 10 MG PO PRN (07:58)
[2019-01-06] MEDS: METFORMIN 500 MG PO SCH ×3 (07:58→17:48)
[2019-01-06] MEDS: OXCARBAZEPINE 600 MG PO SCH ×2 (07:58→19:54)
[2019-01-06] MEDS: BUPROPION HCL 300 MG PO SCH (07:59)
[2019-01-06] MEDS: POTASSIUM CHLORIDE 10 MEQ PO SCH (07:59)
[2019-01-06] MEDS: FOLIC ACID 1 MG PO SCH ×3 (07:59→19:50)
[2019-01-06] MEDS: Thiamine 100 MG Tab PO SCH (12:17)
[2019-01-06] MEDS: AMMONIUM LACTATE 12% TOP SCH ×2 (12:17→19:49)
[2019-01-06] MEDS ORDERED: Cyclobenzaprine 10 MG Tab PO PRN (13:22)
--- NOTE | 2019-01-06 14:08 | PN ---
Progress Note for GEMMA NASH Date: 01/06/2019 Room #: VM.201 SUBJECTIVE: A 48-year-old seen today on swing bed. The patient is quite pleased with herself. She lost another 5 pounds last week. She has been going down to the exercise room at least 3 times a week and trying to do 4. She has been initiating more walks in the hallway. She had some hesitancies about taking the Provera medication recommended by LIBRARY CLERICAL ASSISTANT, but did get the dose this morning. Now, she is quite upset that she might get her period. The goal is to have her cycles through periods over the next 6 months due to a thickened endometrial stripe. She also has bilateral ovarian cyst, but her biopsy of the endometrium did not show any malignancy. Otherwise, her leg swelling has been good. Her breathing has been good. She has not really cut down on the coffee. She is still awaiting her sleep apnea followup before she gets her device. She has not had any increase in pain since we made decreases to her Lyrica, which was 600 a day, now down to 300. OBJECTIVE: VITAL SIGNS: Her weight 175.0 kg, temperature 97.4, pulse 63, blood pressure 134/48, respiratory rate 20, O2 96 on room air during the day. She does wear oxygen at night 3 L. GENERAL: She is in no acute distress. HEART: Regular rate and rhythm. LUNGS: Lung sounds are clear to auscultation bilaterally without crackles or wheezes. ABDOMEN: Nondistended. EXTREMITIES: Warm and dry. No edema. MENTAL STATUS: Alert and orientated x3. PSYCHIATRIC: She is not overly depressed or anxious. LABORATORY DATA: Most recently, she had lad work on the , which showed her sodium still at 128. ASSESSMENT: 1. Morbid obesity with weight loss, goal down to 467, to be ready for gastric bypass surgery. 2. History of smoking. She has not had any cigarettes or nicotine replacement for nearly 2 months now. 3. Obstructive sleep apnea, still working on getting her equipment. 4. Hyponatremia, hyposmolar due to excessive fluid intake with caffeine. 5. Anxiety and depression. She is following with Psychiatry. 6. Prediabetes. 7. Chronic pain. She is tolerating decrease of the Lyrica. We will decrease it to b.i.d. and have her decreased on Flexeril to 5 mg. She also has a followup with Neurology in January. 8. Thickened endometrium and abnormal period. She is going to be taking the Provera now for 10 days. She is concerned about when her period may come. PLAN: At this point, the patient will be started on new weight loss medication, phentermine to take that in conjunction with Topamax. She has taken the phentermine in the past. We will start in the mornings. We will refill her morphine today. We will continue to use the Ativan just sparingly. There has been some medication changes and some stress for her, so after this week, likely we will taper down on the Ativan. She will have appropriate followups with her dietitian in [place] next week. I will update her surgeon about the Provera. She also recently had an echocardiogram that was normal. We will continue to encourage exercise and try to get a good arrangements made for when she goes home. MKA: 01/06/2019 13:31:46 MODL: 01/06/2019 13:59:46 /[id number]
[2019-01-06] MEDS: TOPIRAMATE 50 MG PO SCH (19:53)
[2019-01-06] MEDS: TRAZODONE 100 MG PO SCH (19:55)
[2019-01-06] MEDS: LORAZEPAM PO PRN (19:56)
[2019-01-06] MEDS: CYCLOBENZAPRINE 5 MG PO PRN (19:57)
[2019-01-07] MEDS: TRAZODONE 100 MG PO SCH ×2 (02:47→20:00)
[2019-01-07] MEDS: OXCARBAZEPINE 600 MG PO SCH ×3 (02:47→19:59)
[2019-01-07] MEDS: POTASSIUM CHLORIDE 10 MEQ PO SCH (08:35)
[2019-01-07] MEDS: BUPROPION HCL 300 MG PO SCH (08:35)
[2019-01-07] MEDS: METFORMIN 500 MG PO SCH ×3 (08:36→17:42)
[2019-01-07] MEDS: FOLIC ACID 1 MG PO SCH ×3 (08:37→19:55)
[2019-01-07] MEDS: FUROSEMIDE 40 MG PO SCH ×2 (08:38→11:14)
[2019-01-07] MEDS: MEDROXYPROGESTERONE 10 MG PO SCH (08:39)
[2019-01-07] MEDS: PHENTERMINE 15 MG PO SCH (08:39)
[2019-01-07] MEDS: MORPHINE 30 MG PO SCH ×2 (08:40→19:56)
[2019-01-07] MEDS: PREGABALIN 100 MG PO SCH ×2 (08:41→19:57)
[2019-01-07] MEDS: Cyanocobalamin (Vitamin B12) 1,000 MCG Tab PO SCH (08:42)
[2019-01-07] MEDS: Multivitamins with Iron/Calcium/Folic Acid/Minerals Tab PO SCH (08:42)
[2019-01-07] MEDS: Cholecalciferol (Vitamin D3) 1,000 Unit Tab PO SCH (08:43)
[2019-01-07] MEDS: Aspirin 325 MG Tab.EC PO SCH (08:43)
[2019-01-07] MEDS: Omeprazole 20 MG Cap.CR PO SCH (08:43)
[2019-01-07] MEDS: Magnesium Oxide 400 MG Tab PO SCH ×2 (08:44→19:55)
[2019-01-07] MEDS: HYDROXYZINE HCL 25 MG PO PRN ×2 (08:49→19:59)
[2019-01-07] MEDS: AMMONIUM LACTATE 12% TOP SCH ×2 (11:13→19:54)
[2019-01-07] MEDS: LORAZEPAM PO PRN ×2 (11:19→20:01)
[2019-01-07] MEDS: CYCLOBENZAPRINE 5 MG PO PRN ×2 (11:20→20:00)
[2019-01-07] MEDS: Thiamine 100 MG Tab PO SCH (11:30)
[2019-01-07] MEDS: TOPIRAMATE 50 MG PO SCH (19:58)
[2019-01-08] MEDS: OXCARBAZEPINE 600 MG PO SCH ×3 (00:18→21:44)
[2019-01-08] MEDS: Omeprazole 20 MG Cap.CR PO SCH (08:40)
[2019-01-08] MEDS: Magnesium Oxide 400 MG Tab PO SCH ×2 (08:40→21:44)
[2019-01-08] MEDS: Cyanocobalamin (Vitamin B12) 1,000 MCG Tab PO SCH (08:40)
[2019-01-08] MEDS: Aspirin 325 MG Tab.EC PO SCH (08:40)
[2019-01-08] MEDS: Cholecalciferol (Vitamin D3) 1,000 Unit Tab PO SCH (08:40)
[2019-01-08] MEDS: Multivitamins with Iron/Calcium/Folic Acid/Minerals Tab PO SCH (08:40)
[2019-01-08] MEDS: METFORMIN 500 MG PO SCH ×3 (08:41→17:11)
[2019-01-08] MEDS: BUPROPION HCL 300 MG PO SCH (08:41)
[2019-01-08] MEDS: POTASSIUM CHLORIDE 10 MEQ PO SCH (08:42)
[2019-01-08] MEDS: FUROSEMIDE 40 MG PO SCH ×2 (08:42→12:07)
[2019-01-08] MEDS: FOLIC ACID 1 MG PO SCH ×3 (08:43→21:51)
[2019-01-08] MEDS: PREGABALIN 100 MG PO SCH ×2 (08:44→21:49)
[2019-01-08] MEDS: PHENTERMINE 15 MG PO SCH (08:45)
[2019-01-08] MEDS: MORPHINE 30 MG PO SCH ×2 (08:46→21:45)
[2019-01-08] MEDS: MEDROXYPROGESTERONE 10 MG PO SCH (08:47)
[2019-01-08] MEDS: AMMONIUM LACTATE 12% TOP SCH ×2 (09:29→21:47)
[2019-01-08] MEDS: HYDROXYZINE HCL 25 MG PO PRN ×2 (09:29→21:50)
[2019-01-08] MEDS: Thiamine 100 MG Tab PO SCH (12:07)
[2019-01-08] MEDS: CYCLOBENZAPRINE 5 MG PO PRN ×2 (12:07→21:47)
[2019-01-08] MEDS: TRAZODONE 100 MG PO SCH (21:46)
[2019-01-08] MEDS: TOPIRAMATE 50 MG PO SCH (21:46)
[2019-01-09] MEDS: Omeprazole 20 MG Cap.CR PO SCH (09:21)
[2019-01-09] MEDS: Cyanocobalamin (Vitamin B12) 1,000 MCG Tab PO SCH (09:21)
[2019-01-09] MEDS: Magnesium Oxide 400 MG Tab PO SCH ×2 (09:21→20:50)
[2019-01-09] MEDS: Multivitamins with Iron/Calcium/Folic Acid/Minerals Tab PO SCH (09:21)
[2019-01-09] MEDS: AMMONIUM LACTATE 12% TOP SCH ×2 (09:21→20:43)
[2019-01-09] MEDS: MORPHINE 30 MG PO SCH ×2 (09:22→20:53)
[2019-01-09] MEDS: Aspirin 325 MG Tab.EC PO SCH (09:22)
[2019-01-09] MEDS: PHENTERMINE 15 MG PO SCH (09:22)
[2019-01-09] MEDS: Cholecalciferol (Vitamin D3) 1,000 Unit Tab PO SCH (09:22)
[2019-01-09] MEDS: PREGABALIN 100 MG PO SCH ×2 (09:22→20:54)
[2019-01-09] MEDS: FOLIC ACID 1 MG PO SCH ×3 (09:23→20:44)
[2019-01-09] MEDS: CYCLOBENZAPRINE 5 MG PO PRN ×2 (09:23→20:45)
[2019-01-09] MEDS: METFORMIN 500 MG PO SCH ×3 (09:23→18:49)
[2019-01-09] MEDS: FUROSEMIDE 40 MG PO SCH ×2 (09:23→12:13)
[2019-01-09] MEDS: BUPROPION HCL 300 MG PO SCH (09:24)
[2019-01-09] MEDS: POTASSIUM CHLORIDE 10 MEQ PO SCH (09:24)
[2019-01-09] MEDS: MEDROXYPROGESTERONE 10 MG PO SCH (09:24)
[2019-01-09] MEDS: OXCARBAZEPINE 600 MG PO SCH ×2 (09:24→20:46)
[2019-01-09] MEDS: HYDROXYZINE HCL 25 MG PO PRN ×2 (09:25→20:58)
[2019-01-09] MEDS: Thiamine 100 MG Tab PO SCH (12:13)
[2019-01-09] MEDS: TRAZODONE 100 MG PO SCH (20:44)
[2019-01-09] MEDS: TOPIRAMATE 50 MG PO SCH (20:45)
[2019-01-10] MEDS: Magnesium Oxide 400 MG Tab PO SCH ×2 (08:16→19:31)
[2019-01-10] MEDS: POTASSIUM CHLORIDE 10 MEQ PO SCH (08:16)
[2019-01-10] MEDS: Multivitamins with Iron/Calcium/Folic Acid/Minerals Tab PO SCH (08:16)
[2019-01-10] MEDS: Omeprazole 20 MG Cap.CR PO SCH (08:16)
[2019-01-10] MEDS: Cholecalciferol (Vitamin D3) 1,000 Unit Tab PO SCH (08:16)
[2019-01-10] MEDS: Cyanocobalamin (Vitamin B12) 1,000 MCG Tab PO SCH (08:16)
[2019-01-10] MEDS: Aspirin 325 MG Tab.EC PO SCH (08:16)
[2019-01-10] MEDS: PHENTERMINE 15 MG PO SCH (08:16)
[2019-01-10] MEDS: PREGABALIN 100 MG PO SCH ×2 (08:17→19:33)
[2019-01-10] MEDS: MORPHINE 30 MG PO SCH ×2 (08:17→19:35)
[2019-01-10] MEDS: CYCLOBENZAPRINE 5 MG PO PRN ×2 (08:18→19:37)
[2019-01-10] MEDS: FOLIC ACID 1 MG PO SCH ×3 (08:19→19:38)
[2019-01-10] MEDS: FUROSEMIDE 40 MG PO SCH ×2 (08:19→12:12)
[2019-01-10] MEDS: METFORMIN 500 MG PO SCH ×3 (08:19→18:14)
[2019-01-10] MEDS: OXCARBAZEPINE 600 MG PO SCH ×2 (08:19→20:00)
[2019-01-10] MEDS: BUPROPION HCL 300 MG PO SCH (08:20)
[2019-01-10] MEDS: MEDROXYPROGESTERONE 10 MG PO SCH (08:20)
[2019-01-10] MEDS: HYDROXYZINE HCL 25 MG PO PRN ×2 (08:21→19:39)
[2019-01-10] MEDS: Thiamine 100 MG Tab PO SCH (12:12)
[2019-01-10] MEDS: AMMONIUM LACTATE 12% TOP SCH ×2 (12:12→19:31)
[2019-01-10] MEDS: LORAZEPAM PO PRN (19:34)
[2019-01-10] MEDS: TOPIRAMATE 50 MG PO SCH (19:39)
[2019-01-10] MEDS: TRAZODONE 100 MG PO SCH (20:00)
[2019-01-11] MEDS: MORPHINE 30 MG PO SCH ×2 (07:49→20:22)
[2019-01-11] MEDS: PREGABALIN 100 MG PO SCH ×2 (07:50→20:23)
[2019-01-11] MEDS: LORAZEPAM PO PRN ×2 (07:50→20:28)
[2019-01-11] MEDS: METFORMIN 500 MG PO SCH ×3 (07:51→18:33)
[2019-01-11] MEDS: PHENTERMINE 15 MG PO SCH (07:51)
[2019-01-11] MEDS: POTASSIUM CHLORIDE 10 MEQ PO SCH (07:53)
[2019-01-11] MEDS: BUPROPION HCL 300 MG PO SCH (07:53)
[2019-01-11] MEDS: OXCARBAZEPINE 600 MG PO SCH ×2 (07:54→20:31)
[2019-01-11] MEDS: FOLIC ACID 1 MG PO SCH ×3 (07:55→20:24)
[2019-01-11] MEDS: MEDROXYPROGESTERONE 10 MG PO SCH (07:56)
[2019-01-11] MEDS: Omeprazole 20 MG Cap.CR PO SCH (07:56)
[2019-01-11] MEDS: Cyanocobalamin (Vitamin B12) 1,000 MCG Tab PO SCH (07:57)
[2019-01-11] MEDS: Multivitamins with Iron/Calcium/Folic Acid/Minerals Tab PO SCH (07:57)
[2019-01-11] MEDS: Magnesium Oxide 400 MG Tab PO SCH ×2 (07:57→20:24)
[2019-01-11] MEDS: Cholecalciferol (Vitamin D3) 1,000 Unit Tab PO SCH (07:58)
[2019-01-11] MEDS: FUROSEMIDE 40 MG PO SCH ×2 (07:59→16:00)
[2019-01-11] MEDS: CYCLOBENZAPRINE 5 MG PO PRN ×2 (08:02→20:32)
[2019-01-11] MEDS: Aspirin 325 MG Tab.EC PO SCH (08:06)
[2019-01-11] MEDS: AMMONIUM LACTATE 12% TOP SCH ×2 (09:55→20:21)
[2019-01-11] MEDS: Thiamine 100 MG Tab PO SCH (16:00)
[2019-01-11] MEDS: TOPIRAMATE 50 MG PO SCH (20:25)
[2019-01-11] MEDS: TRAZODONE 100 MG PO SCH (20:31)
[2019-01-11] MEDS: HYDROXYZINE HCL 25 MG PO PRN (20:33)
[2019-01-12] MEDS: OXCARBAZEPINE 600 MG PO SCH ×2 (08:32→21:46)
[2019-01-12] MEDS: FUROSEMIDE 40 MG PO SCH ×2 (08:32→12:17)
[2019-01-12] MEDS: FOLIC ACID 1 MG PO SCH ×3 (08:33→21:47)
[2019-01-12] MEDS: METFORMIN 500 MG PO SCH ×3 (08:33→18:26)
[2019-01-12] MEDS: POTASSIUM CHLORIDE 10 MEQ PO SCH (08:33)
[2019-01-12] MEDS: BUPROPION HCL 300 MG PO SCH (08:34)
[2019-01-12] MEDS: MEDROXYPROGESTERONE 10 MG PO SCH (08:35)
[2019-01-12] MEDS: Multivitamins with Iron/Calcium/Folic Acid/Minerals Tab PO SCH (08:36)
[2019-01-12] MEDS: Cyanocobalamin (Vitamin B12) 1,000 MCG Tab PO SCH (08:36)
[2019-01-12] MEDS: Magnesium Oxide 400 MG Tab PO SCH ×2 (08:36→21:46)
[2019-01-12] MEDS: Cholecalciferol (Vitamin D3) 1,000 Unit Tab PO SCH (08:36)
[2019-01-12] MEDS: Omeprazole 20 MG Cap.CR PO SCH (08:36)
[2019-01-12] MEDS: Aspirin 325 MG Tab.EC PO SCH (08:36)
[2019-01-12] MEDS: PREGABALIN 100 MG PO SCH ×2 (08:38→21:49)
[2019-01-12] MEDS: MORPHINE 30 MG PO SCH ×2 (08:38→21:48)
[2019-01-12] MEDS: LORAZEPAM PO PRN ×2 (08:39→21:49)
[2019-01-12] MEDS: PHENTERMINE 15 MG PO SCH (08:39)
[2019-01-12] MEDS: HYDROXYZINE HCL 25 MG PO PRN ×2 (08:43→21:45)
[2019-01-12] MEDS: AMMONIUM LACTATE 12% TOP SCH ×2 (12:14→21:48)
[2019-01-12] MEDS: Thiamine 100 MG Tab PO SCH (12:16)
[2019-01-12] MEDS: CYCLOBENZAPRINE 5 MG PO PRN ×2 (12:20→21:44)
[2019-01-12] MEDS: TOPIRAMATE 50 MG PO SCH (21:47)
[2019-01-12] MEDS: TRAZODONE 100 MG PO SCH (21:48)
[2019-01-13] MEDS: Cholecalciferol (Vitamin D3) 1,000 Unit Tab PO SCH (08:55)
[2019-01-13] MEDS: Magnesium Oxide 400 MG Tab PO SCH ×2 (08:56→21:55)
[2019-01-13] MEDS: Cyanocobalamin (Vitamin B12) 1,000 MCG Tab PO SCH (08:56)
[2019-01-13] MEDS: Aspirin 325 MG Tab.EC PO SCH (08:56)
[2019-01-13] MEDS: Omeprazole 20 MG Cap.CR PO SCH (08:57)
[2019-01-13] MEDS: Multivitamins with Iron/Calcium/Folic Acid/Minerals Tab PO SCH (08:57)
[2019-01-13] MEDS: FUROSEMIDE 40 MG PO SCH ×2 (08:59→11:52)
[2019-01-13] MEDS: BUPROPION HCL 300 MG PO SCH (08:59)
[2019-01-13] MEDS: POTASSIUM CHLORIDE 10 MEQ PO SCH (08:59)
[2019-01-13] MEDS: OXCARBAZEPINE 600 MG PO SCH ×2 (09:01→21:55)
[2019-01-13] MEDS: METFORMIN 500 MG PO SCH ×3 (09:01→17:50)
[2019-01-13] MEDS: FOLIC ACID 1 MG PO SCH ×3 (09:07→21:57)
[2019-01-13] MEDS: PREGABALIN 100 MG PO SCH ×2 (09:08→21:51)
[2019-01-13] MEDS: MORPHINE 30 MG PO SCH ×2 (09:09→21:50)
[2019-01-13] MEDS: MEDROXYPROGESTERONE 10 MG PO SCH (09:09)
[2019-01-13] MEDS: PHENTERMINE 15 MG PO SCH (09:10)
[2019-01-13] MEDS: LORAZEPAM PO PRN ×2 (09:10→21:53)
[2019-01-13] MEDS: AMMONIUM LACTATE 12% TOP SCH ×2 (09:12→21:50)
[2019-01-13] MEDS: HYDROXYZINE HCL 25 MG PO PRN ×2 (09:16→21:59)
[2019-01-13] MEDS: Thiamine 100 MG Tab PO SCH (11:51)
[2019-01-13] MEDS: CYCLOBENZAPRINE 5 MG PO PRN ×2 (12:00→21:56)
[2019-01-13] MEDS: TOPIRAMATE 50 MG PO SCH (21:57)
[2019-01-13] MEDS: TRAZODONE 100 MG PO SCH (21:58)
[2019-01-14] MEDS: Cyanocobalamin (Vitamin B12) 1,000 MCG Tab PO SCH (09:11)
[2019-01-14] MEDS: Aspirin 325 MG Tab.EC PO SCH (09:11)
[2019-01-14] MEDS: Cholecalciferol (Vitamin D3) 1,000 Unit Tab PO SCH (09:11)
[2019-01-14] MEDS: Magnesium Oxide 400 MG Tab PO SCH ×2 (09:13→20:01)
[2019-01-14] MEDS: POTASSIUM CHLORIDE 10 MEQ PO SCH (09:13)
[2019-01-14] MEDS: Multivitamins with Iron/Calcium/Folic Acid/Minerals Tab PO SCH (09:13)
[2019-01-14] MEDS: OXCARBAZEPINE 600 MG PO SCH ×2 (09:14→20:03)
[2019-01-14] MEDS: METFORMIN 500 MG PO SCH ×3 (09:15→17:51)
[2019-01-14] MEDS: FUROSEMIDE 40 MG PO SCH ×2 (09:16→12:04)
[2019-01-14] MEDS: BUPROPION HCL 300 MG PO SCH (09:18)
[2019-01-14] MEDS: FOLIC ACID 1 MG PO SCH ×3 (09:19→20:00)
[2019-01-14] MEDS: CYCLOBENZAPRINE 5 MG PO PRN ×2 (09:21→20:10)
[2019-01-14] MEDS: PREGABALIN 100 MG PO SCH ×2 (09:26→20:02)
[2019-01-14] MEDS: MORPHINE 30 MG PO SCH ×2 (09:27→20:01)
[2019-01-14] MEDS: PHENTERMINE 15 MG PO SCH (09:28)
[2019-01-14] MEDS: MEDROXYPROGESTERONE 10 MG PO SCH (09:29)
[2019-01-14] MEDS: AMMONIUM LACTATE 12% TOP SCH ×2 (09:31→19:59)
[2019-01-14] MEDS: Omeprazole 20 MG Cap.CR PO SCH (09:40)
[2019-01-14] MEDS: Thiamine 100 MG Tab PO SCH (12:04)
[2019-01-14] MEDS: TOPIRAMATE 50 MG PO SCH (20:03)
[2019-01-14] MEDS: TRAZODONE 100 MG PO SCH (20:04)
[2019-01-14] MEDS: LORAZEPAM PO PRN (20:09)
[2019-01-14] MEDS: HYDROXYZINE HCL 25 MG PO PRN (20:09)
[2019-01-15] MEDS: Multivitamins with Iron/Calcium/Folic Acid/Minerals Tab PO SCH (09:19)
[2019-01-15] MEDS: Cholecalciferol (Vitamin D3) 1,000 Unit Tab PO SCH (09:20)
[2019-01-15] MEDS: Cyanocobalamin (Vitamin B12) 1,000 MCG Tab PO SCH (09:20)
[2019-01-15] MEDS: Omeprazole 20 MG Cap.CR PO SCH (09:20)
[2019-01-15] MEDS: Aspirin 325 MG Tab.EC PO SCH (09:20)
[2019-01-15] MEDS: Magnesium Oxide 400 MG Tab PO SCH ×2 (09:20→20:55)
[2019-01-15] MEDS: FOLIC ACID 1 MG PO SCH ×3 (09:21→20:55)
[2019-01-15] MEDS: FUROSEMIDE 40 MG PO SCH ×2 (09:21→11:43)
[2019-01-15] MEDS: METFORMIN 500 MG PO SCH ×3 (09:22→17:38)
[2019-01-15] MEDS: POTASSIUM CHLORIDE 10 MEQ PO SCH (09:23)
[2019-01-15] MEDS: OXCARBAZEPINE 600 MG PO SCH ×2 (09:24→21:08)
[2019-01-15] MEDS: PHENTERMINE 15 MG PO SCH (09:25)
[2019-01-15] MEDS: BUPROPION HCL 300 MG PO SCH (09:25)
[2019-01-15] MEDS: MORPHINE 30 MG PO SCH ×2 (09:26→20:55)
[2019-01-15] MEDS: PREGABALIN 100 MG PO SCH ×2 (09:26→20:55)
[2019-01-15] MEDS: CYCLOBENZAPRINE 5 MG PO PRN ×2 (09:27→21:10)
[2019-01-15] MEDS: HYDROXYZINE HCL 25 MG PO PRN ×2 (09:28→21:09)
[2019-01-15] MEDS: AMMONIUM LACTATE 12% TOP SCH ×2 (09:32→20:55)
[2019-01-15] MEDS: MEDROXYPROGESTERONE 10 MG PO SCH (09:44)
[2019-01-15] MEDS: Thiamine 100 MG Tab PO SCH (11:41)
[2019-01-15] MEDS: TOPIRAMATE 50 MG PO SCH (20:55)
[2019-01-15] MEDS: TRAZODONE 100 MG PO SCH (21:08)
[2019-01-15] MEDS: LORAZEPAM PO PRN (21:08)
[2019-01-16] MEDS: Magnesium Oxide 400 MG Tab PO SCH ×2 (08:44→20:37)
[2019-01-16] MEDS: Multivitamins with Iron/Calcium/Folic Acid/Minerals Tab PO SCH (08:44)
[2019-01-16] MEDS: Aspirin 325 MG Tab.EC PO SCH (08:45)
[2019-01-16] MEDS: Cyanocobalamin (Vitamin B12) 1,000 MCG Tab PO SCH (08:45)
[2019-01-16] MEDS: Cholecalciferol (Vitamin D3) 1,000 Unit Tab PO SCH (08:45)
[2019-01-16] MEDS: Omeprazole 20 MG Cap.CR PO SCH (08:45)
[2019-01-16] MEDS: POTASSIUM CHLORIDE 10 MEQ PO SCH (08:49)
[2019-01-16] MEDS: FUROSEMIDE 40 MG PO SCH ×2 (08:50→12:15)
[2019-01-16] MEDS: METFORMIN 500 MG PO SCH ×3 (08:50→17:56)
[2019-01-16] MEDS: BUPROPION HCL 300 MG PO SCH (08:51)
[2019-01-16] MEDS: FOLIC ACID 1 MG PO SCH ×3 (09:04→20:36)
[2019-01-16] MEDS: OXCARBAZEPINE 600 MG PO SCH ×2 (09:05→20:40)
[2019-01-16] MEDS: PHENTERMINE 15 MG PO SCH (09:06)
[2019-01-16] MEDS: PREGABALIN 100 MG PO SCH (09:07)
[2019-01-16] MEDS: MORPHINE 30 MG PO SCH ×2 (09:07→20:34)
[2019-01-16] MEDS: HYDROXYZINE HCL 25 MG PO PRN ×2 (09:08→20:39)
[2019-01-16] MEDS: CYCLOBENZAPRINE 5 MG PO PRN ×2 (09:09→20:40)
[2019-01-16] MEDS: AMMONIUM LACTATE 12% TOP SCH ×2 (09:10→20:34)
[2019-01-16] MEDS: Thiamine 100 MG Tab PO SCH (12:17)
[2019-01-16] MEDS: Calcium Carbonate 750 MG Tab.Chew PO PRN (12:22)
[2019-01-16] MEDS: TOPIRAMATE 50 MG PO SCH (20:37)
[2019-01-16] MEDS: TRAZODONE 100 MG PO SCH (20:40)
[2019-01-16] MEDS: LORAZEPAM PO PRN (20:41)
[2019-01-17] MEDS: OXCARBAZEPINE 600 MG PO SCH ×2 (08:54→20:44)
[2019-01-17] MEDS: FUROSEMIDE 40 MG PO SCH ×2 (08:55→12:52)
[2019-01-17] MEDS: Calcium Carbonate 750 MG Tab.Chew PO PRN (08:55)
[2019-01-17] MEDS: FOLIC ACID 1 MG PO SCH ×3 (08:55→20:40)
[2019-01-17] MEDS: POTASSIUM CHLORIDE 10 MEQ PO SCH (08:56)
[2019-01-17] MEDS: METFORMIN 500 MG PO SCH ×3 (08:56→18:04)
[2019-01-17] MEDS: BUPROPION HCL 300 MG PO SCH (08:57)
[2019-01-17] MEDS: HYDROXYZINE HCL 25 MG PO PRN ×2 (08:57→20:43)
[2019-01-17] MEDS: LORAZEPAM PO PRN ×2 (08:58→20:45)
[2019-01-17] MEDS: Omeprazole 20 MG Cap.CR PO SCH (08:59)
[2019-01-17] MEDS: Cholecalciferol (Vitamin D3) 1,000 Unit Tab PO SCH (08:59)
[2019-01-17] MEDS: Aspirin 325 MG Tab.EC PO SCH (08:59)
[2019-01-17] MEDS: Magnesium Oxide 400 MG Tab PO SCH ×2 (09:00→20:42)
[2019-01-17] MEDS: Multivitamins with Iron/Calcium/Folic Acid/Minerals Tab PO SCH (09:00)
[2019-01-17] MEDS: Cyanocobalamin (Vitamin B12) 1,000 MCG Tab PO SCH (09:01)
[2019-01-17] MEDS: MORPHINE 30 MG PO SCH ×2 (09:02→20:41)
[2019-01-17] MEDS: PHENTERMINE 15 MG PO SCH (09:02)
[2019-01-17] MEDS: AMMONIUM LACTATE 12% TOP SCH ×2 (09:10→20:40)
[2019-01-17] MEDS: CYCLOBENZAPRINE 5 MG PO PRN ×2 (12:53→20:45)
[2019-01-17] MEDS: Thiamine 100 MG Tab PO SCH (12:53)
[2019-01-17] MEDS: TOPIRAMATE 50 MG PO SCH (20:40)
[2019-01-17] MEDS: TRAZODONE 100 MG PO SCH (20:44)
--- NOTE | 2019-01-17 23:03 | PN ---
Progress Note for GEMMA NASH Date: 01/16/2019 Room #: VM.201 SUBJECTIVE: Patient on swing bed for assistance with ADLs, aggressive diet and weight loss efforts. The patient is quite pleased. She lost 12 pounds in just 1 week. She is down now to 375 pounds when her starting weight at the hospital was 417. Because of her quitting smoking, she did initially put on some weight before losing. She is motivated now. She is going out for walks. She is working in the cardiac rehab for exercise. She has been watching her diet. Overall, she is making good progress. She is thinking she may not even pursue gastric bypass, just continue weight loss efforts on her own, but admits she has had increasing anxiety due to planning to return home next week and just concerned that she will be able to keep up with the diet and exercise habits. She otherwise did get decreasing doses of Lyrica. It has not increased her pain at all. She has been getting it now twice daily. OBJECTIVE: Vital Signs: Her temperature was 97.6, pulse 65, blood pressure 113/46, respiratory rate 18, O2 95% on room air. General: She is in no acute distress. Heart: Regular rate and rhythm. S1, S2 without murmur. Lung: Sounds clear to auscultation bilaterally without crackles or wheezes. Extremities: Warm and dry. No edema. Mental Status: Alert and orientated x3. ASSESSMENT AND PLAN: 1. Morbid obesity with weight loss. She is nearly due to her goal of 467 for gastric bypass. However, she is going to continue her efforts at home and may not even pursue the gastric bypass. 2. History of smoking. She is going to try to stay off. Nicotine replacement is not recommended due to the potential for surgery. 3. Obstructive sleep apnea. The patient had obstructive sleep apnea. When she did her study, they put on CPAP and she had emerging central apnea events and she ended up on BiPAP ASV, which is treating the obstructive sleep apnea and central apnea events. The machine is BiPAP ASV with EPAP minutes of 5 and max of 15 with pressure support, minimum of 3 and max of 15. I have discussed this with the Sleep Clinic, Reina Chery. Due to this fact that she has sleep apnea, I recommend that she try a machine to treat her sleep apnea. 4. Hyponatremia. I will repeat a sodium on Friday. 5. Anxiety and depression. She is following with Psychiatry. Due to increasing anxiety, she is requiring some p.r.n. doses of Ativan 1 to 2 times a day. 6. Prediabetes. 7. Chronic pain. Doing well on decreasing doses of Lyrica. We will get that down to just at bedtime. She is on her same morphine, which she has been actually tolerating for years. 8. Thickened endometrium and abnormal periods. No period for quite some time. She has been taking Provera, she recently finished. She is worried she is going to get her period before she leaves. She is following with [facility] for this. PLAN: At this point, the patient is tolerating both weight loss medications, the Topamax and phentermine, which were recently restarted. She does have some followups in [place] with a weight loss specialist, but I do not see anything currently with nutrition. We will get her out to the store hopefully Friday to get a few supplies for her trip home Friday otherwise we will work on getting her certified and set up with her sleep apnea equipment when she gets home. MKA: 01/17/2019 22:38:27 MODL: 01/17/2019 22:54:52 /[id number]
[2019-01-18 05:30] VITALS: BP 126/39
[2019-01-18] MEDS: Multivitamins with Iron/Calcium/Folic Acid/Minerals Tab PO SCH (08:16)
[2019-01-18] MEDS: Aspirin 325 MG Tab.EC PO SCH (08:16)
[2019-01-18] MEDS: Magnesium Oxide 400 MG Tab PO SCH ×2 (08:16→20:59)
[2019-01-18] MEDS: Omeprazole 20 MG Cap.CR PO SCH (08:16)
[2019-01-18] MEDS: FOLIC ACID 1 MG PO SCH ×3 (08:16→21:00)
[2019-01-18] MEDS: OXCARBAZEPINE 600 MG PO SCH ×2 (08:17→21:04)
[2019-01-18] MEDS: METFORMIN 500 MG PO SCH ×3 (08:17→18:24)
[2019-01-18] MEDS: CYCLOBENZAPRINE 5 MG PO PRN ×3 (08:17→21:05)
[2019-01-18] MEDS: BUPROPION HCL 300 MG PO SCH (08:17)
[2019-01-18] MEDS: FUROSEMIDE 40 MG PO SCH ×2 (08:17→12:05)
[2019-01-18] MEDS: POTASSIUM CHLORIDE 10 MEQ PO SCH (08:17)
[2019-01-18] MEDS: MORPHINE 30 MG PO SCH ×2 (08:18→21:00)
[2019-01-18] MEDS: HYDROXYZINE HCL 25 MG PO PRN (08:18)
[2019-01-18] MEDS: PHENTERMINE 15 MG PO SCH (08:19)
[2019-01-18] MEDS: Cyanocobalamin (Vitamin B12) 1,000 MCG Tab PO SCH (08:24)
[2019-01-18] MEDS: Cholecalciferol (Vitamin D3) 1,000 Unit Tab PO SCH (08:24)
[2019-01-18 08:51] LABS: CHLORIDE,CL 97 mmol/L (98-107); SODIUM,NA 135 mmol/L (136-145)
[2019-01-18 08:54] LABS: ANION GAP 12.9 mmol/L (10-20)
[2019-01-18] MEDS: Calcium Carbonate 750 MG Tab.Chew PO PRN ×3 (08:58→20:57)
[2019-01-18] MEDS: Thiamine 100 MG Tab PO SCH (12:05)
[2019-01-18] MEDS: AMMONIUM LACTATE 12% TOP SCH ×2 (12:05→20:58)
[2019-01-18] MEDS: Acetaminophen 500 MG Tab PO PRN (12:05)
[2019-01-18] MEDS: TOPIRAMATE 50 MG PO SCH (21:00)
[2019-01-18] MEDS: TRAZODONE 100 MG PO SCH (21:04)
[2019-01-18] MEDS ORDERED: hydrOXYzine HCl 25 MG Tab PO ONE (21:17)
[2019-01-19] MEDS: Magnesium Oxide 400 MG Tab PO SCH (08:18)
[2019-01-19] MEDS: FOLIC ACID 1 MG PO SCH ×2 (08:18→12:47)
[2019-01-19] MEDS: Multivitamins with Iron/Calcium/Folic Acid/Minerals Tab PO SCH (08:18)
[2019-01-19] MEDS: Cholecalciferol (Vitamin D3) 1,000 Unit Tab PO SCH (08:18)
[2019-01-19] MEDS: Omeprazole 20 MG Cap.CR PO SCH (08:18)
[2019-01-19] MEDS: POTASSIUM CHLORIDE 10 MEQ PO SCH (08:18)
[2019-01-19] MEDS: Aspirin 325 MG Tab.EC PO SCH (08:18)
[2019-01-19] MEDS: Cyanocobalamin (Vitamin B12) 1,000 MCG Tab PO SCH (08:18)
[2019-01-19] MEDS: BUPROPION HCL 300 MG PO SCH (08:19)
[2019-01-19] MEDS: METFORMIN 500 MG PO SCH ×2 (08:19→12:00)
[2019-01-19] MEDS: FUROSEMIDE 40 MG PO SCH ×2 (08:19→12:47)
[2019-01-19] MEDS: CYCLOBENZAPRINE 5 MG PO PRN (08:22)
[2019-01-19] MEDS: OXCARBAZEPINE 600 MG PO SCH (08:22)
[2019-01-19] MEDS: MORPHINE 30 MG PO SCH (08:23)
[2019-01-19] MEDS: PHENTERMINE 15 MG PO SCH (08:24)
[2019-01-19] MEDS: HYDROXYZINE HCL 25 MG PO PRN (08:31)
[2019-01-19] MEDS: Calcium Carbonate 750 MG Tab.Chew PO PRN (09:34)
[2019-01-19] MEDS: AMMONIUM LACTATE 12% TOP SCH (12:48)
[2019-01-19] MEDS: Thiamine 100 MG Tab PO SCH (12:51)
--- NOTE | 2019-01-21 11:18 | DISCH ---
Date of original swing bed admission was 10/27/2018, date of discharge 01/19/2019. However, the patient was discharged and readmitted on 2 occasions for outpatient sleep studies. PRIMARY DISCHARGE DIAGNOSES: 1. Morbid obesity. 2. Need for assistance with ADLs. 3. History of smoking, quit on admission. 4. Obstructive sleep apnea, needing BiPAP. Plan to get that set up at home. 5. Hyponatremia, probably due to increased water and coffee intake. This resolved. Sodium was normal on discharge. 6. Anxiety and depression, longstanding, working with Psychiatry. 7. Prediabetes. 8. 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 She was weaned down to once daily Lyrica. 9. Thickened endometrium and abnormal periods. She was started on Provera per Gynecology to take 10 days per month, which she did take her first cycle here otherwise. 10.Ovarian cyst. This had been evaluated and had been present for several years. CA 125 negative. 11.Essential hypertension. Blood pressure is controlled. 12.Gastroesophageal reflux disease. 13.Restrictive lung disease, likely due to obesity. REASON FOR ADMISSION: On the date of admission, this 48-year-old female came in electively on a 90-day stay through Medicaid for assistance with ADLs and for nutritional and diet support, as well as increased exercise. She initially did gain some weight from starting weight around 417, up to 432 pounds, but gradually she was able to lose weight, especially after the Topamax was started for weight loss, which she was tolerating, and later phentermine was added. She had taken phentermine in the past but it had not been successful. The patient did quit smoking originally as well when she came in and did use nicotine patches for short time. Her weight was coming down. In fact, it was down to 364 at the time of discharge. She was initiating walks in the [place]. She was going down to cardiac rehab and using the exercise equipment. The patient only had some anxiety about going home, making sure she had the right groceries and food. Her significant other was actually going to go shopping and arrange for some of this. It should also be noted that the patient had been using 1 to 2 half doses of a 0.25 mg Ativan up to twice daily to help with her increasing anxiety towards the time of discharge. She stayed on her stable doses of morphine for her painful neuropathy and does have outpatient Neurology visit scheduled. The [id number] encounter occurred with me on 01/19/2019. The primary reasons for home health are fdc to educate on medication changes and encourage continued compliance with her exercise and diet regimen as well as physical therapy to help establish a home exercise program and the patient was looking at ordering a bike type device that she can use in her home. They will also educate her on home health aides and then have them available to assist her with bathing 2 to 3 times a week. I will periodically review this plan of care. DISCHARGE PHYSICAL EXAMINATION: Vital Signs: Otherwise, on discharge, her exam did show her weight at 165.9 kg, pulse 64, temperature 97.6, blood pressure 126/39, respiratory rate 20, O2 of 97% on room air. General: She was in no acute distress. Heart: Regular rate and rhythm. S1, S2 without murmur. Lungs: Lung sounds are clear to auscultation bilaterally without crackles or wheezes. Extremities: Warm and dry. No edema. Mental Status: Alert and orientated x3. MKA: 01/21/2019 08:43:56 MODL: 01/21/2019 09:22:32 /[id number]
[2019-02-03] MEDS ORDERED: MEDROXYPROGESTERONE 10 MG PO SCH (08:00)
== END 2019-01-19 13:15 | disposition home health service (06) | DRG 641 ==
LOC: VM.MS 07:55
PROVIDERS: ADMIT Family Medicine; ATTEND Internal Medicine
DX: E66.01 Morbid (severe) obesity due to excess calories (principal); E87.1 Hypo-osmolality and hyponatremia; I10 Essential (primary) hypertension; F41.9 Anxiety disorder, unspecified; F32.9 Major depressive disorder, single episode, unspecified; G62.9 Polyneuropathy, unspecified; Z68.43 Body mass index [BMI] 50.0-59.9, adult; F17.200 Nicotine dependence, unspecified, uncomplicated; G47.33 Obstructive sleep apnea (adult) (pediatric); R73.03 Prediabetes; G89.29 Other chronic pain; N91.5 Oligomenorrhea, unspecified; R09.02 Hypoxemia; R19.7 Diarrhea, unspecified
CPT/HCPCS: 36415; 80048; 83735; 83930; 83935; 84295; 85025; A9270-GY

== ENCOUNTER 2023-12-04 21:33 | Emergency (ER) | payer MEDICAID ==
[2023-12-04] MEDS ORDERED: HYDROmorphone 1 MG/ML Syringe IVPUSH ONE (21:45)
[2023-12-04 22:02] LABS: BASOPHILS PERCENT AUTO 0.2 % (0.2-1.2); EOSINOPHILS PERCENT AUTO 0.1 % (0.0-4.0); HEMATOCRIT 38.1 % (33.0-47.0); HEMOGLOBIN 12.9 g/dL (12.0-16.0); IMMATURE GRAN ABSOLUTE AUTO 0.03 x10^3/uL (0.00-0.07); LYMPHOCYTES ABSOLUTE AUTO 0.8 x10^3/uL (1.0-4.8); LYMPHOCYTES PERCENT AUTO 4.5 % (25.0-50.0); MEAN CORPUSCULAR HEMOGLOBIN 30.2 pg (26.0-32.0); MEAN CORPUSCULAR HGB CONC 33.9 g/dL (32.0-36.0); MEAN CORPUSCULAR VOLUME 89.2 fL (78.0-93.0); MONOCYTES ABSOLUTE AUTO 0.2 x10^3/uL (0.0-0.8); MONOCYTES PERCENT AUTO 0.9 % (2.0-11.0); NEUTROPHILS ABSOLUTE AUTO 17.4 x10^3/uL (1.8-7.7); NEUTROPHILS PERCENT AUTO 94.1 % (50.0-80.0); PLATELET COUNT,PLT 375 x10^3/uL (130-400); RED BLOOD CELL COUNT 4.27 x10^6/uL (4.00-5.50)
[2023-12-04] MEDS: HYDROmorphone 1 MG/ML Syringe IVPUSH ONE (22:05)
[2023-12-04 22:12] LABS: WHITE BLOOD CELL COUNT,WBC 18.5 x10^3/uL (4.0-10.0)
[2023-12-04] MEDS: Ondansetron 4 MG/2 ML SDV IVPUSH ONE (22:13)
[2023-12-04 22:23] LABS: A/G RATIO 0.84; ALANINE AMINOTRANSFERASE,ALT 78 U/L (14-59); ALBUMIN 3.2 g/dL (3.4-5.0); ALKALINE PHOSPHATASE 389 U/L (46-116); ASPARTATE AMNIOTRANSFERASE,AST 199 U/L (15-37); BILIRUBIN TOTAL 1.1 mg/dL (0.2-1.0); BLOOD UREA NITROGEN,BUN 6 mg/dL (7-18); CALCIUM 8.5 mg/dL (8.5-10.1); CARBON DIOXIDE,CO2 25 mmol/L (21-32); CHLORIDE,CL 95 mmol/L (98-107); CREATININE 0.8 mg/dL (0.55-1.02); GLUCOSE RANDOM 131 mg/dL (70-99); LIPASE 59 U/L (19-71); POTASSIUM,K 3.5 mmol/L (3.5-5.1); SODIUM,NA 133 mmol/L (136-145)
[2023-12-04 22:26] LABS: ANION GAP 16.5 mmol/L (5-15); ESTIMATED GFR 89 mL/min (>=60)
[2023-12-04] MEDS: Iopamidol 612 MG/ML 100 ML Bottle IVPUSH ONE (23:10)
[2023-12-04] MEDS: Sodium Chloride 0.9% 1,000 ML IV ONE (23:15)
[2023-12-04] MEDS: Haloperidol Lactate 5 MG/ML SDV IV ONE (23:25)
[2023-12-05] MEDS ORDERED: Piperacillin/Tazobactam 4.5 GM in Sodium Chloride 0.9% 100 ML IV SCH (00:15)
[2023-12-05] MEDS: Piperacillin/Tazobactam 4.5 GM in Sodium Chloride 0.9% 100 ML IV ONE (00:24)
[2023-12-05 01:02] VITALS: BP 130/62; PULSE 70
== END 2023-12-05 01:20 | disposition short-term general hospital (02) ==
LOC: VM.ED 21:33
DX: K80.50 Calculus of bile duct without cholangitis or cholecystitis without obstruction (principal); I10 Essential (primary) hypertension; E78.00 Pure hypercholesterolemia, unspecified; K21.9 Gastro-esophageal reflux disease without esophagitis; E11.40 Type 2 diabetes mellitus with diabetic neuropathy, unspecified; E11.42 Type 2 diabetes mellitus with diabetic polyneuropathy; Z79.899 Other long term (current) drug therapy; Z90.710 Acquired absence of both cervix and uterus; Z79.84 Long term (current) use of oral hypoglycemic drugs
CPT/HCPCS: 36415; 74176; 80053; 83605; 83690; 85025; 87040; 93005; 96361; 96365; 96375; 99285-25; J1170; J1630; J2405; J2543; J3490; J7030